=== PATIENT | female | born 1945 | race Caucasian/White ===

== ENCOUNTER → 2018-01-10 10:23 | Outpatient (CLI) | payer OTHER, SELFPAY ==
--- NOTE | 2018-01-10 10:25 | BI_ITS ---
MAMMOGRAPHY - BILATERAL SCREENING REASON FOR EXAM: Female, 72 years old. Routine annual screening examination. PERTINENT HISTORY: Non-contributory. TECHNIQUE: Digital bilateral breast jason (3D mammographic acquisition) in the CC and MLO projections. 2-D mediolateral oblique (MLO) and craniocaudad (CC) views of both breasts were obtained. CAD: Full Field Digital Mammography with Computer Added Detection was performed. COMPARISON: Comparison is made with prior study dated December 22, 2016 and December 22, 2015. FINDINGS: Breast Composition: There are scattered areas of fibroglandular density. There are no dominant masses or suspicious calcifications. Stable appearance of the secretory calcifications bilaterally. No other significant abnormalities are identified. There has been no significant change since the prior study. BI/SCREENING MAMM (CAD), BILAT IMPRESSION: Stable bilateral screening mammogram. Yearly follow-up mammogram recommended. (A) ASSESSMENT CATEGORY: BIRADS Category 2: Benign. A letter regarding these results will be sent to the patient by the facility within 30 days. Approximately 10% of breast cancers are not detected by mammography. A normal mammogram should not delay biopsy of a clinically suspicious abnormality. [id number] Electronically Signed: Yeison Archer MD at 7:56 EDT Tel [phone], Service support ,
[2018-01-10 12:15] LABS: Microalbumin,Random Urine 5.1 mg/L (NO RANGE EST.); Microalbumin:Creatinine Ratio 29.1 mg/g CRE (<30 mg/g CRE)
[2018-01-10 12:23] LABS: AST(SGOT) 24 U/L (15-37); Alanine Aminotransfer ALT/SGPT 30 U/L (13-56); Albumin, Serum 4.4 g/dL (3.2-5.0); Alkaline Phosphatase 50 U/L (45-117); Bilirubin, Direct 0.15 mg/dL (0.00-0.30); Cholesterol 142 mg/dL (200); Globulin 3.1 g/dL (2.2-4.2); High Density Lipoprotein 61 mg/dL; Protein, Total 7.5 g/dL (6.4-8.2); Triglycerides 52 mg/dL; Very Low Density Lipoprotein 10 mg/dL (5-40)
[2018-01-10 12:30] LABS: Hemoglobin A1c 5.2 % (4.2-6.3)
== END ==
PROVIDERS: Internal Medicine Cardiovascular Disease; Family Provider Preventive Medicine Occupational Medicine; PCP Preventive Medicine Occupational Medicine; Visit Provider Preventive Medicine Occupational Medicine
DX: E78.5 Hyperlipidemia, unspecified (principal); Z12.31 Encounter for screening mammogram for malignant neoplasm of breast
CPT/HCPCS: 36415; 77063; 77067; 80061; 80076; 82043; 82570; 83036

== ENCOUNTER → 2018-05-10 10:01 | Outpatient (CLI) | payer OTHER, SELFPAY ==
[2018-05-10 10:06] LABS: Mucous, Urine 0 SEEN /hpf (<or=2+)
[2018-05-10 10:20] LABS: Absolute Lymphocyte Count 0.98 X10^3/ul (0.83-4.51); Absolute Neutrophil Count 3.6 X10^3/uL (2.0-7.7); Basophil# 0.02 X10^3/uL; Basophil% 0.4 % (0-1); Hematocrit 38.2 % (37-47); Hemoglobin 12.9 g/dl (12.0-15.0); Lymphocyte # 0.98 X10^3/ul (4.0); Lymphocyte % 18.7 % (19-41); Mean Corp Hgb Conc 33.8 g/gl (32-36); Mean Corpuscular Hgb 28.4 pg (27.0-32.0); Mean Platelet Vol. 10.1 fl (6.2-12.0); Monocyte# 0.69 X10^3/uL; Monocyte% 13.2 % (0-10); Neutrophil # 3.55 X10^3/uL (2.7-7.7); Neutrophil % 67.7 % (47-70); Platelet Count 177 K/mm3 (150-450); RBC Distribution Width CV 14.4 % (11.6-14.6); RBC Distribution Width SD 44.5 fl (35.1-43.9); Red Blood Count 4.55 M/mm3 (4.2-5.4); White Blood Count 5.2 K/mm3 (4.4-11.0)
[2018-05-10 10:25] LABS: Color, Urine Yellow (Yellow); Glucose, Dipstick Normal (Normal); Ketone-Dipstick Negative (Negative); Leukocyte Esterase-Dipstick 500 /ul (Negative); Nitrite-Dipstick Negative (Negative); Occult Blood-Urine Negative /ul (Negative); POSITIVE COUNT NO; POSITIVE DIFFERENTIAL NO; POSITIVE MORPHOLOGY NO; Protein-Dipstick Negative (Negative); Specific Gravity, Urine 1.005 (1.002-1.030); Urine Bilirubin Dipstick Negative (Negative); Urine Clarity Clear (Clear); Urine Urobilinogen Normal (Normal)
[2018-05-10 10:33] LABS: Bacteria 2+ /hpf (None Seen); Red Blood Cells-Urine 0-5 SEEN /hpf (0-5); Squamous Epithelial Cells - UA 0-5 SEEN /hpf (5-10); White Blood Cells 5-10 SEEN /hpf (0-5)
[2018-05-10 10:58] LABS: Free T3 2.2 pg/mL (2.18-3.98); T4 Free Direct 0.83 ng/dL (0.76-1.46); Thyroid Stim Hormone (TSH) 3.17 uIU/mL (0.358-3.74)
== END ==
PROVIDERS: Family Provider Preventive Medicine Occupational Medicine; PCP Preventive Medicine Occupational Medicine; Referring Provider Nurse Practitioner; Visit Provider Nurse Practitioner
DX: R61 Generalized hyperhidrosis (principal)
CPT/HCPCS: 36415; 81001; 84439; 84443; 84481; 85025

== ENCOUNTER → 2018-07-15 10:26 | Outpatient (CLI) | payer OTHER, SELFPAY ==
[2018-07-15 11:29] LABS: AST(SGOT) 22 U/L (15-37); Alanine Aminotransfer ALT/SGPT 29 U/L (13-56); Albumin, Serum 4.3 g/dL (3.2-5.0); Alkaline Phosphatase 52 U/L (45-117); Bilirubin, Direct 0.16 mg/dL (0.00-0.30); Cholesterol 156 mg/dL (200); Globulin 3.1 g/dL (2.2-4.2); High Density Lipoprotein 58 mg/dL; Protein, Total 7.4 g/dL (6.4-8.2); Triglycerides 69 mg/dL; Very Low Density Lipoprotein 14 mg/dL (5-40)
== END ==
PROVIDERS: Family Provider Preventive Medicine Occupational Medicine; PCP Preventive Medicine Occupational Medicine; Referring Provider Internal Medicine Cardiovascular Disease; Visit Provider Internal Medicine Cardiovascular Disease
DX: E78.5 Hyperlipidemia, unspecified (principal)
CPT/HCPCS: 36415; 80061; 80076

== ENCOUNTER → 2019-01-13 | Outpatient (CLI) | payer OTHER, SELFPAY ==
[2018-08-02 13:14] VITALS: BMI 26.6
--- NOTE | 2019-01-13 09:59 | BI_ITS ---
MAMMOGRAPHY - BILATERAL SCREENING 3-D TOMOSYNTHESIS REASON FOR EXAM: Female, 73 years old. Bilateral Screening 3-D tomosynthesis PERTINENT HISTORY: Hormone use for 9 years. Intermittent left lateral breast pain. TECHNIQUE: 2-D mammograms and 3-D Tomosynthesis of the breast (s) were performed. CAD was performed. COMPARISON: January 10, 2018, December 22, 2016 FINDINGS: The breast composition is almost entirely fat. Scattered benign calcifications are seen. No dense spiculated masses or suspicious microcalcifications are identified. No architectural distortion is identified. There is no skin thickening or retraction. There are stable lymph nodes in both axillae. There has been no significant change since the prior study. BI/SCREEN MAMM (CAD) W/RAHEEM BILAT IMPRESSION: No mammographic signs of malignancy. Routine yearly mammograms recommended. ASSESSMENT CATEGORY: BIRADS Category 2: Benign. A letter regarding these results will be sent to the patient by the facility within 30 days. FOLLOW UP RECOMMENDATION: Yearly follow up mammogram recommended. (A) Approximately 10% of breast cancers are not detected by mammography. A normal mammogram should not delay biopsy of a clinically suspicious abnormality. Electronically Signed: Sergey Castillo MD at 14:24 EDT , Service support ,
== END | disposition home or self-care (01) ==
LOC: OPBI 09:57
PROVIDERS: Family Provider Preventive Medicine Occupational Medicine; PCP Preventive Medicine Occupational Medicine; Referring Provider Preventive Medicine Occupational Medicine; Visit Provider Preventive Medicine Occupational Medicine
DX: Z12.31 Encounter for screening mammogram for malignant neoplasm of breast (principal)
CPT/HCPCS: 77063; 77067

== ENCOUNTER → 2019-04-03 | Outpatient (CLI) | payer OTHER, SELFPAY ==
[2019-03-04 13:11] VITALS: BMI 25.6
[2019-04-03 12:46] LABS: AST(SGOT) 24 U/L (15-37); Alanine Aminotransfer ALT/SGPT 30 U/L (13-56); Albumin, Serum 4.2 g/dL (3.2-5.0); Alkaline Phosphatase 53 U/L (45-117); Bilirubin, Direct 0.17 mg/dL (0.00-0.30); Cholesterol 152 mg/dL (200); Globulin 3.2 g/dL (2.2-4.2); High Density Lipoprotein 59 mg/dL; Protein, Total 7.4 g/dL (6.4-8.2); Triglycerides 58 mg/dL; Very Low Density Lipoprotein 12 mg/dL (5-40)
== END | disposition home or self-care (01) ==
LOC: LAB 11:21
PROVIDERS: Family Provider Preventive Medicine Occupational Medicine; PCP Preventive Medicine Occupational Medicine; Referring Provider Physician Assistant Medical; Visit Provider Physician Assistant Medical
DX: E78.00 Pure hypercholesterolemia, unspecified (principal)
CPT/HCPCS: 36415; 80061; 80076

== ENCOUNTER → 2019-12-09 13:37 | Outpatient (CLI) | payer OTHER, SELFPAY ==
[2019-11-17 10:57] VITALS: BMI 24.8
--- NOTE | 2019-12-09 13:39 | ECHOD_ITS ---
Reason For Study: VALVE REPLACEMENT EVAL Procedure This was a 2D Doppler, Color Flow transthoracic echocardiogram. Exam performed in department. Left Ventricle Normal size and thickness. The estimated ejection fraction is 65 %. Stage 2 diastolic dysfunction. No regional wall motion abnormalities noted. Right Ventricle Normal size and thickness. Normal systolic function. Atria Normal left atrium. Normal right atrium. Normal atrial septum. Mitral Valve Mild diffuse mitral valve thickening. Mild (1+) mitral valve insufficiency. Tricuspid Valve Normal tricuspid valve. Mild (1+) tricuspid valve insufficiency. Right ventricular systolic pressure estimated to be 29 mmHg. Aortic Valve Trisinus/trileaflet aortic valve. Mild focal aortic valve thickening. There is no aortic stenosis. Trivial aortic valve insufficiency. Pulmonic Valve Normal pulmonic valve. Great Vessels Normal aortic root. Normal arch. Normal inferior vena cava. Inferior vena cava collapse with sniff. Pericardium/Pleural No pericardial effusion. MMode/2D Measurements & Calculations LVIDd: 4.6 cm IVSd: 0.98 cm Ao root diam: 2.9 cm LVIDs: 3.2 cm LVPWd: 0.96 cm RVDd: 3.5 cm FS: 30.4 % LAV(MOD-bp): 43.0 ml LA A4 area: 15.8 cm2 LA dimension(2D): 2.6 cm LAV(MOD-bp) Indexed: 26.4 ml/m2 LAV(MOD-sp2): 41.8 ml LAV(MOD-sp4): 42.3 ml RA A4 area: 12.8 cm2 Time Measurements MV dec time: 0.18 sec Doppler Measurements & Calculations MV E max sushil: 95.3 cm/sec Lat Peak E' Sushil: 4.5 cm/sec Med Peak E' Sushil: 6.8 cm/sec MV A max sushil: 82.9 cm/sec E/E' lat: 21.1 E/E' med: 13.9 MV E/A: 1.1 Ao V2 max: 117.7 cm/sec LV V1 max: 87.5 cm/sec PA V2 max: 72.1 cm/sec Ao max P.5 mmHg LV V1 max P.1 mmHg TR max sushil: 227.6 cm/sec TR max P.8 mmHg Interpretation Summary The estimated ejection fraction is 65 %. Stage 2 diastolic dysfunction. Mild (1+) mitral valve insufficiency. Mild (1+) tricuspid valve insufficiency. Right ventricular systolic pressure estimated to be 29 mmHg. Trivial aortic valve insufficiency. Compared to echo report dated 07/18/2017, no appreciable changes noted. Ordering Physician: Michael Cm Referring Physician: Jose Carrera Performed By: Bre Morgan, ROSANA, RVT
[2019-12-09 14:24] LABS: AST(SGOT) 20 U/L (15-37); Alanine Aminotransfer ALT/SGPT 24 U/L (13-56); Albumin, Serum 4.1 g/dL (3.2-5.0); Alkaline Phosphatase 64 U/L (45-117); Bilirubin, Direct 0.18 mg/dL (0.00-0.30); Cholesterol 142 mg/dL (200); Globulin 3.3 g/dL (2.2-4.2); High Density Lipoprotein 59 mg/dL; Protein, Total 7.4 g/dL (6.4-8.2); Triglycerides 61 mg/dL; Very Low Density Lipoprotein 12 mg/dL (5-40)
== END ==
PROVIDERS: PCP Preventive Medicine Occupational Medicine; Referring Provider Internal Medicine Cardiovascular Disease; Visit Provider Internal Medicine Cardiovascular Disease
DX: I10 Essential (primary) hypertension (principal); I34.0 Nonrheumatic mitral (valve) insufficiency; R06.09 Other forms of dyspnea; E78.5 Hyperlipidemia, unspecified
CPT/HCPCS: 36415; 80061; 80076; 93306

== ENCOUNTER → 2020-01-16 | Outpatient (CLI) | payer OTHER, SELFPAY ==
[2019-11-17 10:57] VITALS: BMI 24.8
--- NOTE | 2020-01-16 10:39 | BI_ITS ---
MAMMOGRAPHY - BILATERAL SCREENING 3-D TOMOSYNTHESIS REASON FOR EXAM: Female, 74 years old. Routine screening PERTINENT HISTORY: NO FM HX , BILAT MOLES/HEMANGIOMAS MARKED. TECHNIQUE: 2-D mammograms and 3-D Tomosynthesis of the breast (s) were performed. CAD was performed. COMPARISON: 01/13/2019 FINDINGS: The breast composition is composed of scattered fibroglandular density. Scattered benign calcifications are seen. No dense spiculated masses or suspicious microcalcifications are identified. No architectural distortion is identified. There is no skin thickening or retraction. There has been no significant change since the prior study. BI/SCREEN MAMM (CAD) W/RAHEEM BILAT IMPRESSION: No mammographic signs of malignancy. Routine yearly mammograms recommended. ASSESSMENT CATEGORY: BIRADS Category 1: Negative. A letter regarding these results will be sent to the patient by the facility within 30 days. FOLLOW UP RECOMMENDATION: Yearly follow up mammogram recommended. (A) Approximately 10% of breast cancers are not detected by mammography. A normal mammogram should not delay biopsy of a clinically suspicious abnormality. Electronically Signed: Benton Avendano MD at 11:33 EDT , Service support ,
== END | disposition home or self-care (01) ==
LOC: OPBI 10:32
PROVIDERS: PCP Preventive Medicine Occupational Medicine; Referring Provider Preventive Medicine Occupational Medicine; Visit Provider Preventive Medicine Occupational Medicine
DX: Z12.31 Encounter for screening mammogram for malignant neoplasm of breast (principal)
CPT/HCPCS: 77063; 77067

== ENCOUNTER 2020-09-23 10:28 | Outpatient (RCR) | payer MEDICARE, SELFPAY ==
[2020-05-14 14:01] VITALS: BMI 25.6
[2020-09-23] MEDS: COVID-19 VACC, MRNA(PFIZER)/PF 30 MCG/0.3 ML SYRINGE IM (08:40)
[2020-10-14] MEDS: COVID-19 VACC, MRNA(PFIZER)/PF 30 MCG/0.3 ML SYRINGE IM (08:27)
== END 2020-09-23 23:59 ==
LOC: IMMUN 10:28
PROVIDERS: PCP Preventive Medicine Occupational Medicine; Referring Provider Family Medicine; Visit Provider Family Medicine
DX: Z23 Encounter for immunization (principal)
CPT/HCPCS: 0001A; 0002A

== ENCOUNTER → 2020-11-09 11:46 | Outpatient (CLI) | payer MEDICARE, SELFPAY ==
[2020-05-14 14:01] VITALS: BMI 25.6
--- NOTE | 2020-11-09 11:55 | RAD_ITS ---
STUDY: X-RAY CHEST REASON FOR EXAM: Female, 75 years old. COUGH TECHNIQUE: PA and lateral views of the chest. COMPARISON: None. FINDINGS: The lungs are clear and expanded. There is no demonstrated pleural abnormality. Normal size heart. Normal mediastinum and franklyn. Normal visualized pulmonary arteries. Normal visualized aortic arch and descending thoracic aorta. Normal visualized thoracic spine. Normal visualized ribs, clavicles, and shoulders. There is no demonstrated abnormality of the visualized soft tissue structures of the upper abdomen. RAD/Chest PA and Lateral IMPRESSION: Normal x-ray examination of the chest. Electronically Signed: Rachael Warren MD at 4:57 EDT Tel , Service support ,
== END ==
PROVIDERS: PCP Preventive Medicine Occupational Medicine; Referring Provider Preventive Medicine Occupational Medicine; Visit Provider Preventive Medicine Occupational Medicine
DX: R05 Cough (principal)
CPT/HCPCS: 71046

== ENCOUNTER → 2021-01-17 10:18 | Outpatient (CLI) | payer MEDICARE, SELFPAY ==
[2020-05-14 14:01] VITALS: BMI 25.6
--- NOTE | 2021-01-17 10:20 | BI_ITS ---
MAMMOGRAPHY - BILATERAL SCREENING REASON FOR EXAM: Female, 75 years old. Routine annual screening examination. PERTINENT HISTORY: Non-contributory. TECHNIQUE: Digital bilateral breast raheem (3D mammographic acquisition) in the CC and MLO projections. 2-D mediolateral oblique (MLO) and craniocaudad (CC) views of both breasts were obtained. CAD: Full Field Digital Mammography with Computer Added Detection was performed. COMPARISON: Comparison is made with prior study dated 01/16/2020 and 01/13/2019. FINDINGS: Breast Composition: There are scattered areas of fibroglandular density. There are no dominant masses or suspicious calcifications. Stable benign-appearing bilateral axillary lymph nodes. No other significant abnormalities are identified. There has been no significant change since the prior study. BI/SCRN MAMM (CAD)W/RAHEEM BILAT IMPRESSION: Stable bilateral screening mammogram. Yearly follow-up mammogram recommended. (A) ASSESSMENT CATEGORY: BIRADS Category 2: Benign. A letter regarding these results will be sent to the patient by the facility within 30 days. Approximately 10% of breast cancers are not detected by mammography. A normal mammogram should not delay biopsy of a clinically suspicious abnormality. [id number] Electronically Signed: Yeison Archer MD at 12:30 EDT , Service support ,
== END ==
PROVIDERS: PCP Preventive Medicine Occupational Medicine; Referring Provider Preventive Medicine Occupational Medicine; Visit Provider Preventive Medicine Occupational Medicine
DX: Z12.31 Encounter for screening mammogram for malignant neoplasm of breast (principal)
CPT/HCPCS: 77063; 77067

== ENCOUNTER → 2022-01-18 | Outpatient (CLI) | payer MEDICARE, SELFPAY ==
--- NOTE | 2022-01-18 09:54 | BI_ITS ---
MAMMOGRAPHY - BILATERAL SCREENING REASON FOR EXAM: Female, 76 years old. Routine annual screening examination. PERTINENT HISTORY: Non-contributory. TECHNIQUE: Digital bilateral breast raheem (3D mammographic acquisition) in the CC and MLO projections. 2-D mediolateral oblique (MLO) and craniocaudad (CC) views of both breasts were obtained. CAD: Full Field Digital Mammography with Computer Added Detection was performed. COMPARISON: Comparison is made with prior study dated 01/17/2021 and 01/16/2020. FINDINGS: Breast Composition: There are scattered areas of fibroglandular density. There are no dominant masses or suspicious calcifications. No other significant abnormalities are identified. There has been no significant change since the prior study. BI/SCRN MAMM (CAD)W/RAHEEM BILAT IMPRESSION: Stable bilateral screening mammogram. Yearly follow-up mammogram recommended. (A) ASSESSMENT CATEGORY: BIRADS Category 1: Negative. A letter regarding these results will be sent to the patient by the facility within 30 days. Approximately 10% of breast cancers are not detected by mammography. A normal mammogram should not delay biopsy of a clinically suspicious abnormality. [id number] Electronically Signed: Yeison Archer MD at 10:43 EDT ,
[2022-01-18 11:02] LABS: Creatinine, Urine (random) < 13.00 mg/dL (NO RANGE EST.); Microalbumin,Random Urine 14.3 mg/L (NO RANGE EST.)
[2022-01-18 11:18] LABS: ALB/GLOB Ratio 1.3 RATIO (0.9-2.4); AST(SGOT) 24 U/L (15-37); Alanine Aminotransfer ALT/SGPT 26 U/L (13-56); Albumin, Serum 4.4 g/dL (3.2-5.0); Alkaline Phosphatase 56 U/L (45-117); Anion Gap 6 (5-15); BUN 10 mg/dL (7-18); BUN/Creat Ratio 11.1 RATIO (10-20); Calcium,Total 9.3 mg/dL (8.5-10.1); Chloride 90 mmol/L (98-107); Cholesterol 162 mg/dL (200); EST Glomerular Filtration Rate 65 mL/min (>60); Est Glom Filt Rate - Afr Amer 78 mL/min (>60); Globulin 3.3 g/dL (2.2-4.2); Glucose 105 mg/dL (74-106); High Density Lipoprotein 64 mg/dL; Potassium 4.1 mmol/L (3.5-5.1); Protein, Total 7.7 g/dL (6.4-8.2); Sodium Level 127 mmol/L (136-145); Triglycerides 59 mg/dL; Very Low Density Lipoprotein 12 mg/dL (5-40)
== END | disposition home or self-care (01) ==
LOC: OPBI 09:52 → PAVLAB 10:17
PROVIDERS: PCP Preventive Medicine Occupational Medicine; Visit Provider Preventive Medicine Occupational Medicine
DX: Z12.31 Encounter for screening mammogram for malignant neoplasm of breast (principal); E11.9 Type 2 diabetes mellitus without complications; E78.00 Pure hypercholesterolemia, unspecified; I10 Essential (primary) hypertension
CPT/HCPCS: 36415; 77063; 77067; 80053; 80061; 82043; 82570

== ENCOUNTER → 2022-07-13 | Outpatient (CLI) | payer MEDICARE, SELFPAY ==
[2022-07-13 13:59] LABS: AST(SGOT) 24 U/L (15-37); Alanine Aminotransfer ALT/SGPT 30 U/L (13-56); Albumin, Serum 4.1 g/dL (3.2-5.0); Alkaline Phosphatase 67 U/L (45-117); Anion Gap 6 (5-15); BUN 10 mg/dL (7-18); BUN/Creat Ratio 10.9 RATIO (10-20); Calcium,Total 9.1 mg/dL (8.5-10.1); Chloride 92 mmol/L (98-107); Cholesterol 154 mg/dL (200); Creatinine, Serum 0.92 mg/dL (0.55-1.02); EST Glomerular Filtration Rate 63 mL/min (>60); Est Glom Filt Rate - Afr Amer 76 mL/min (>60); Globulin 3.3 g/dL (2.2-4.2); Glucose 106 mg/dL (74-106); High Density Lipoprotein 63 mg/dL; Protein, Total 7.4 g/dL (6.4-8.2); Sodium Level 127 mmol/L (136-145); Triglycerides 54 mg/dL; Very Low Density Lipoprotein 11 mg/dL (5-40)
== END | disposition home or self-care (01) ==
LOC: LAB 13:04
PROVIDERS: PCP Preventive Medicine Occupational Medicine; Referring Provider Internal Medicine Cardiovascular Disease; Visit Provider Internal Medicine Cardiovascular Disease
DX: I10 Essential (primary) hypertension (principal); E78.5 Hyperlipidemia, unspecified; I34.0 Nonrheumatic mitral (valve) insufficiency
CPT/HCPCS: 36415; 80048; 80061; 80076

== ENCOUNTER → 2023-01-19 | Outpatient (CLI) | payer MEDICARE, SELFPAY ==
--- NOTE | 2023-01-19 10:14 | BI_ITS ---
MAMMOGRAPHY - BILATERAL SCREENING REASON FOR EXAM: Female, 77 years old. Routine annual screening examination. PERTINENT HISTORY: Non-contributory. Occasional lateral left breast pain TECHNIQUE: Digital bilateral breast raheem (3D mammographic acquisition) in the CC and MLO projections. 2-D mediolateral oblique (MLO) and craniocaudad (CC) views of both breasts were obtained. CAD: Full Field Digital Mammography with Computer Added Detection was performed. COMPARISON: Comparison is made with prior study dated January 18, 2022 and January 17, 2021. FINDINGS: Breast Composition: There are scattered areas of fibroglandular density. There are no dominant masses or suspicious calcifications. No other significant abnormalities are identified. There has been no significant change since the prior study. BI/SCRN MAMM (CAD)W/RAHEEM BILAT IMPRESSION: Stable bilateral screening mammogram. Yearly follow-up mammogram recommended. (A) ASSESSMENT CATEGORY: BIRADS Category 1: Negative. A letter regarding these results will be sent to the patient by the facility within 30 days. Approximately 10% of breast cancers are not detected by mammography. A normal mammogram should not delay biopsy of a clinically suspicious abnormality. [id number] Electronically Signed: Yeison Archer MD at 12:42 EDT ,
== END | disposition home or self-care (01) ==
PROVIDERS: PCP Preventive Medicine Occupational Medicine; Referring Provider Preventive Medicine Occupational Medicine; Visit Provider Preventive Medicine Occupational Medicine
DX: Z12.31 Encounter for screening mammogram for malignant neoplasm of breast (principal)
CPT/HCPCS: 77063; 77067

== ENCOUNTER → 2023-06-05 | Outpatient (CLI) | payer MEDICARE, SELFPAY ==
[2023-06-05 11:40] LABS: AST(SGOT) 22 U/L (15-37); Alanine Aminotransfer ALT/SGPT 29 U/L (13-56); Albumin, Serum 3.9 g/dL (3.2-5.0); Alkaline Phosphatase 54 U/L (45-117); Bilirubin, Direct 0.18 mg/dL (0.00-0.30); Cholesterol 136 mg/dL (200); Globulin 3.2 g/dL (2.2-4.2); High Density Lipoprotein 60 mg/dL; Protein, Total 7.1 g/dL (6.4-8.2); T4 Free Direct 0.97 ng/dL (0.76-1.46); Thyroid Stim Hormone (TSH) 3.33 uIU/mL (0.358-3.74); Triglycerides 61 mg/dL; Very Low Density Lipoprotein 12 mg/dL (5-40)
== END | disposition home or self-care (01) ==
LOC: LAB 10:36
PROVIDERS: PCP Preventive Medicine Occupational Medicine; Referring Provider Nurse Practitioner Gerontology; Visit Provider Nurse Practitioner Gerontology
DX: E78.00 Pure hypercholesterolemia, unspecified (principal); I10 Essential (primary) hypertension
CPT/HCPCS: 36415; 80061; 80076; 84439; 84443; 84481

== ENCOUNTER → 2023-07-02 | Outpatient (CLI) | payer MEDICARE, SELFPAY ==
--- NOTE | 2023-07-02 09:03 | ECHOD_ITS ---
Reason For Study: HTN Procedure This was a 2D Doppler, Color Flow transthoracic echocardiogram. Exam performed in department. Left Ventricle Normal LV size. Left ventricular systolic function is normal. The estimated ejection fraction is 60 %. No regional wall motion abnormalities noted. Right Ventricle Normal RV size. Normal systolic function. Atria Normal left atrium. Normal right atrium. Mitral Valve Normal mitral valve. Mild (1+) eccentric mitral valve insufficiency. Tricuspid Valve Normal tricuspid valve. Mild tricuspid valve insufficiency. Pulmonary artery systolic pressure is 25 mmHg. Aortic Valve Trisinus/trileaflet aortic valve. Mild focal aortic valve calcification. Pulmonic Valve Normal pulmonic valve. Great Vessels Normal aortic root. The pulmonary artery is normal size. Normal inferior vena cava. Pericardium/Pleural No pericardial effusion. MMode/2D Measurements & Calculations LVIDd: 4.4 cm IVSd: 0.85 cm Ao root diam: 3.0 cm LVIDs: 2.7 cm LVPWd: 0.84 cm LA dimension: 3.0 cm RVDd: 3.8 cm FS: 37.9 % LAV(MOD-bp): 33.4 ml LA A4 area: 14.1 cm2 RA A4 area: 12.9 cm2 LAV(MOD-bp) Indexed: 20.9 ml/m2 LAV(MOD-sp2): 29.4 ml LAV(MOD-sp4): 31.4 ml TAPSE: 2.3 cm Time Measurements MV dec time: 0.19 sec Doppler Measurements & Calculations MV E max sushil: 75.8 cm/sec Lat Peak E' Sushil: 7.2 cm/sec Med Peak E' Sushil: 7.5 cm/sec MV A max sushil: 83.0 cm/sec E/E' lat: 10.6 E/E' med: 10.1 MV E/A: 0.91 MV V2 max: 91.8 cm/sec MV P1/2t max sushil: 93.9 cm/sec Ao V2 max: 120.4 cm/sec MV max P.4 mmHg MV P1/2t: 68.6 msec Ao max P.8 mmHg MV V2 mean: 47.5 cm/sec Ao V2 mean: 77.4 cm/sec MV mean P.1 mmHg MV dec slope: 400.5 cm/sec2 Ao mean P.9 mmHg MV V2 VTI: 31.9 cm MVA(P1/2t): 3.2 cm2 Ao V2 VTI: 31.4 cm AV (velocity ratio): 0.76 LV V1 max: 85.6 cm/sec MR max sushil: 498.1 cm/sec PA V2 max: 76.0 cm/sec LV V1 max P.9 mmHg MR max P.3 mmHg LV V1 mean P.5 mmHg MR mean sushil: 396.8 cm/sec LV V1 mean: 55.1 cm/sec MR mean P.3 mmHg LV V1 VTI: 24.0 cm MR VTI: 220.4 cm TR max sushil: 231.3 cm/sec TR max P.4 mmHg ECHO/Echo Complete Interpretation Summary Normal LV size. Left ventricular systolic function is normal. The estimated ejection fraction is 60 %. Pulmonary artery systolic pressure is 25 mmHg. Ordering Physician: Mari Robert Referring Physician: Mari Robert Performed By: yK Craig RCS
--- NOTE | 2023-07-02 09:03 | ART_ITS ---
Reason For Study: PVD /Cold BLE Procedure A bilateral lower extremity continuous wave Doppler with analog waveform analysis and ankle brachial indexes. Left Segmental Pressures Left brachial= 144mmHg. Left posterior tibial artery = 148mmHg. Left dorsalis pedis artery = 144mmHg. Left digit = 121 mmHg. The left posterior tibial artery waveforms are triphasic. The left dorsalis pedis waveforms are triphasic. Right Segmental Pressures Right brachial= 137mmHg. Right posterior tibial artery = 153mmHg. Right dorsalis pedis artery = 133mmHg. Right digit = 125 mmHg. The right posterior tibial artery waveforms are triphasic. The right dorsalis pedis waveforms are triphasic. Indices The right ankle brachial index by the posterior tibial artery is 1.06. The right ankle brachial index by the dorsalis pedis is 0.92. The right digital-brachial index is 0.87. The left ankle brachial index by the posterior tibial artery is 1.03. The left ankle brachial index by the dorsalis pedis is 1.00. The left digital-brachial index is 0.84. VL/Ankle Brachial Index Interpretation Summary Right TYSHAWN 1.06, normal. TBI and Doppler/PVR waveforms of the right leg normal a t rest. Left TYSHAWN 1.03, normal. TBI and Doppler/PVR waveforms of the left leg normal at rest. Ordering Physician: Mari Robert Referring Physician: Jose Carrera Performed By: Martínez Troy RVShirley
== END | disposition home or self-care (01) ==
LOC: CVS 09:01
PROVIDERS: PCP Preventive Medicine Occupational Medicine; Referring Provider Nurse Practitioner Gerontology; Visit Provider Nurse Practitioner Gerontology
DX: I73.9 Peripheral vascular disease, unspecified (principal); R20.9 Unspecified disturbances of skin sensation; I34.0 Nonrheumatic mitral (valve) insufficiency
CPT/HCPCS: 93306; 93922

== ENCOUNTER → 2023-11-22 | Outpatient (CLI) | payer MEDICARE, SELFPAY ==
[2023-11-22 12:09] LABS: ALB/GLOB Ratio 1.3 RATIO (0.9-2.4); AST(SGOT) 27 U/L (15-37); Alanine Aminotransfer ALT/SGPT 28 U/L (13-56); Alkaline Phosphatase 52 U/L (45-117); Anion Gap 3 (5-15); BUN 11 mg/dL (7-18); BUN/Creat Ratio 12.9 RATIO (10-20); Calcium,Total 9.2 mg/dL (8.5-10.1); Chloride 97 mmol/L (98-107); Cholesterol 149 mg/dL (200); Creatinine, Serum 0.85 mg/dL (0.55-1.02); EST Glomerular Filtration Rate 68 mL/min (>60); Est Glom Filt Rate - Afr Amer 83 mL/min (>60); Globulin 3.1 g/dL (2.2-4.2); Glucose 101 mg/dL (74-106); High Density Lipoprotein 66 mg/dL; Microalbumin:Creatinine Ratio 69.8 mg/g CRE (<30 mg/g CRE); Potassium 4.9 mmol/L (3.5-5.1); Protein, Total 7.1 g/dL (6.4-8.2); Sodium Level 129 mmol/L (136-145); Triglycerides 55 mg/dL; Very Low Density Lipoprotein 11 mg/dL (5-40)
== END | disposition home or self-care (01) ==
LOC: LAB 11:07
PROVIDERS: Nurse Practitioner Gerontology; PCP Preventive Medicine Occupational Medicine; Referring Provider Preventive Medicine Occupational Medicine; Visit Provider Preventive Medicine Occupational Medicine
DX: E78.00 Pure hypercholesterolemia, unspecified (principal); E11.9 Type 2 diabetes mellitus without complications; I10 Essential (primary) hypertension
CPT/HCPCS: 36415; 80053; 80061; 82043; 82248; 82570

== ENCOUNTER → 2024-01-21 | Outpatient (CLI) | payer MEDICARE, SELFPAY ==
--- NOTE | 2024-01-21 09:57 | BI_ITS ---
MAMMOGRAPHY - BILATERAL SCREENING 3-D TOMOSYNTHESIS REASON FOR EXAM: Female, 78 years old. SCREENING PERTINENT HISTORY: No significant family history. TECHNIQUE: 2-D mammograms and 3-D Tomosynthesis of the breast (s) were performed. CAD was performed. COMPARISON: 01/19/2023 FINDINGS: The breast composition is composed of scattered fibroglandular density. Scattered benign calcifications are seen. No dense spiculated masses or suspicious microcalcifications are identified. No architectural distortion is identified. There is no skin thickening or retraction. There has been no significant change since the prior study. Bilateral benign vascular calcifications can be associated with coronary artery disease. BI/SCRN MAMM (CAD)W/RAHEEM BILAT IMPRESSION: No mammographic signs of malignancy. Routine yearly mammograms recommended. ASSESSMENT CATEGORY: BIRADS Category 2: Benign. A letter regarding these results will be sent to the patient by the facility within 30 days. FOLLOW UP RECOMMENDATION: Yearly follow up mammogram recommended. (A) Approximately 10% of breast cancers are not detected by mammography. A normal mammogram should not delay biopsy of a clinically suspicious abnormality. Electronically Signed: Nico Ibrahim MD at 10:52 EDT ,
== END | disposition home or self-care (01) ==
LOC: OPBI 09:55
PROVIDERS: PCP Preventive Medicine Occupational Medicine; Referring Provider Preventive Medicine Occupational Medicine; Visit Provider Preventive Medicine Occupational Medicine
DX: Z12.31 Encounter for screening mammogram for malignant neoplasm of breast (principal)
CPT/HCPCS: 77063; 77067

== ENCOUNTER → 2024-04-30 | Outpatient (CLI) | payer MEDICARE, SELFPAY ==
--- NOTE | 2024-04-30 14:24 | NEURO ---
NCS and/or EMG Patient Report Ordering Doctor: Chung Oliva DATE OF SERVICE: 04/30/24 Ivet has complaints of intermittent numbness and burning in the feet. Electrodiagnostic findings: Right peroneal motor nerve demonstrates normal distal latency, amplitude and conduction velocity. Left peroneal motor response is within normal limits. Normal tibial motor response bilaterally. Normal tibial and peroneal F?waves. H?reflexes are normal bilaterally. Sensory responses, including plantar responses, are within normal limits. Needle EMG testing was performed the lower limbs. All muscles tested showed no evidence of denervation with normal motor unit action potentials. Electrodiagnostic impression: This is a normal electrodiagnostic study of the lower limbs. There is no electrodiagnostic evidence for lumbosacral radiculopathy, myopathy, or peripheral neuropathy.
== END | disposition home or self-care (01) ==
LOC: PSN 12:25
PROVIDERS: PCP Preventive Medicine Occupational Medicine; Referring Provider Podiatrist; Visit Provider Podiatrist
DX: E11.42 Type 2 diabetes mellitus with diabetic polyneuropathy (principal)
CPT/HCPCS: 95886; 95913

== ENCOUNTER → 2024-05-27 | Outpatient (CLI) | payer MEDICARE, SELFPAY ==
--- NOTE | 2024-05-27 11:02 | BD_ITS ---
STUDY: DUAL ENERGY X-RAY ABSORPTIOMETRY / DXA REASON FOR EXAM: Female, 79 years old. [id number] TECHNIQUE: Bone Mineral Density (BMD) measurements of lumbar spine and bilateral hips were obtained. COMPARISON: Comparison is made with prior study dated December 08, 2010. FINDINGS: Lumbar Spine (L1-L4): g/cm2 (1.066) / T-score (0.2) / Z-score (2.8) Findings are suggestive of normal bone density with a low fracture risk. Left Femur Total: g/cm2 (0.952) / T-score (0.1) / Z-score (2.1) Left Femoral Neck: g/cm2 (0.817) / T-score (-0.3) / Z-score (2.0) Right Femur Total: g/cm2 (0.959) / T-score (0.1) / Z-score (2.2) Right Femoral Neck: g/cm2 (0.763) / T-score (-0.8) / Z-score (1.5) The T-Scores on the most recent prior examination were: Lumbar Spine (L1-L4): There has been worsening of bone density since the previous examination. Left Femur Total: which represents a worsening of 15%. Right Femur Total: which represents a worsening of 15.8%. BD/Dexa Bone Density Study IMPRESSION: The patient is considered normal as outlined below according to World Rajiv Organization (WHO) criteria with a low fracture risk. There has been worsening of bone density since the previous examination. Reference Information: The T-score is the number of standard deviations above or below the standard which is normal for young adults at their peak bone mineral density. The World Health Organization (WHO) interprets the T-scores as follows: Above -1 Normal bone density Between -1 and -2.5 Osteopenia Equal to / or below -2.5 Osteoporosis As a practical clinical guideline, osteopenia may be graded as follows: Mild -1 through -1.5 Moderate -1.6 through -2.0 Severe -2.1 through -2.4 The Z-score is the number of standard deviations above or below age-matched controls. A Z-score of less than -1.5 would be considered abnormal. References: 1. NIH Osteoporosis and Related Bone Diseases www osteo.org 2. International Society for Clinical Densitometry www iscd.org 3. National Osteoporosis Foundation www nof.org Electronically Signed: Yeison Archer MD at 14:18 EST ,
[2024-05-27 12:37] LABS: ALB/GLOB Ratio 1.4 RATIO (0.9-2.4); AST(SGOT) 21 U/L (15-37); Alanine Aminotransfer ALT/SGPT 18 U/L (13-56); Albumin, Serum 4.2 g/dL (3.2-5.0); Alkaline Phosphatase 56 U/L (45-117); Anion Gap 9 (5-15); BUN 9 mg/dL (7-18); Bilirubin, Direct 0.23 mg/dL (0.00-0.30); Chloride 94 mmol/L (98-107); Cholesterol 137 mg/dL (200); EST Glomerular Filtration Rate 64 mL/min (>60); Est Glom Filt Rate - Afr Amer 78 mL/min (>60); Globulin 3.1 g/dL (2.2-4.2); Glucose 93 mg/dL (74-106); High Density Lipoprotein 70 mg/dL; Potassium 4.1 mmol/L (3.5-5.1); Protein, Total 7.3 g/dL (6.4-8.2); Sodium Level 128 mmol/L (136-145); Triglycerides 51 mg/dL; Very Low Density Lipoprotein 10 mg/dL (5-40)
[2024-05-27 12:48] LABS: Microalbumin,Random Urine 31.6 mg/L (NO RANGE EST.); Microalbumin:Creatinine Ratio 184.8 mg/g CRE (<30 mg/g CRE)
== END | disposition home or self-care (01) ==
PROVIDERS: Nurse Practitioner Gerontology; PCP Preventive Medicine Occupational Medicine; Referring Provider Preventive Medicine Occupational Medicine; Visit Provider Preventive Medicine Occupational Medicine
DX: E78.00 Pure hypercholesterolemia, unspecified (principal); E11.9 Type 2 diabetes mellitus without complications; I10 Essential (primary) hypertension; Z78.0 Asymptomatic menopausal state
CPT/HCPCS: 36415; 77080; 80053; 80061; 82043; 82248; 82570

== ENCOUNTER → 2024-07-01 | Outpatient (CLI) | payer MEDICARE, SELFPAY ==
[2024-07-01 12:24] LABS: Erythrocyte Sedimentation Rate 3 mm/hr (0-30)
[2024-07-01 13:00] LABS: Vitamin B12 877 pg/mL (211-911)
[2024-07-01 13:49] LABS: CRP < 2.90 mg/L (0.0-3.0); Magnesium 2.3 mg/dL (1.6-2.6)
[2024-07-02 12:08] LABS: ANTINUCLEAR ANTIBODIES DIRECT Negative (Negative)
[2024-07-07 09:22] LABS: Albumin 3.9 g/dL (2.9-4.4); Alpha-1-Globulins 0.3 g/dL (0.0-0.4); Alpha-2-Globulins 0.9 g/dL (0.4-1.0); Immunoglobulin A 144 mg/dL (64-422); Immunoglobulin G 923 mg/dL (586-1602); Immunoglobulin M 83 mg/dL (26-217); Vitamin B1, Thiamine 113.9 nmol/L (66.5-200.0)
== END | disposition home or self-care (01) ==
LOC: MTLAB 11:06
PROVIDERS: PCP Preventive Medicine Occupational Medicine
DX: G62.9 Polyneuropathy, unspecified (principal)
CPT/HCPCS: 36415; 82607; 82746; 82784; 83735; 84165; 84425; 85652; 86038; 86140; 86225; 86235; 86334

== ENCOUNTER → 2024-10-22 | Outpatient (CLI) | payer OTHER, SELFPAY ==
[2024-10-22 11:05] LABS: ALB/GLOB Ratio 1.7 RATIO (0.9-2.4); AST(SGOT) 29 U/L (<=31); Alanine Aminotransfer ALT/SGPT 18 U/L (<=34); Albumin, Serum 4.6 g/dL (3.4-4.8); Alkaline Phosphatase 55 U/L (35-104); Anion Gap 12 (5-15); BUN 12 mg/dL (4-19); BUN/Creat Ratio 12.9 RATIO (10-20); Calcium,Total 9.5 mg/dL (7.6-11.0); Carbon Dioxide 23.3 mmol/L (21.0-32.0); Chloride 93 mmol/L (98-108); Cholesterol 156 mg/dL (<=200); Creatinine, Serum 0.95 mg/dL (0.70-1.20); EST Glomerular Filtration Rate 61 (>60); Globulin 2.7 g/dL (2.2-4.2); Glucose 96 mg/dL (70-99); High Density Lipoprotein 67 mg/dL; Low Density Lipoprotein Calc. 76 mg/dL; Potassium 4.3 mmol/L (3.3-5.1); Protein, Total 7.2 g/dL (5.9-8.4); Sodium Level 129 mmol/L (133-145); Total Bilirubin 0.45 mg/dL (0.00-1.30); Triglycerides 70 mg/dL; Very Low Density Lipoprotein 14 mg/dL (5-40); cholesterol:hdl ratio screen 2.35
[2024-10-22 15:20] LABS: Microalbumin,Random Urine 14.1 mg/L (NO RANGE EST.); Microalbumin:Creatinine Ratio 305.9 mg/g CRE
== END | disposition home or self-care (01) ==
PROVIDERS: PCP Preventive Medicine Occupational Medicine; Referring Provider Preventive Medicine Occupational Medicine; Visit Provider Preventive Medicine Occupational Medicine
DX: I10 Essential (primary) hypertension (principal); E11.9 Type 2 diabetes mellitus without complications; E78.00 Pure hypercholesterolemia, unspecified
CPT/HCPCS: 36415; 80053; 80061; 82043; 82570

== ENCOUNTER → 2025-06-08 | Outpatient (CLI) | payer MEDICARE, SELFPAY ==
[2025-06-11 04:22] LABS: Calprotectin, Stool 37 ug/g (0-120)
== END | disposition home or self-care (01) ==
LOC: LABSPEC 09:24
PROVIDERS: Referring Provider Student in an Organized Health Care Education/Training Program; Visit Provider Student in an Organized Health Care Education/Training Program
DX: K58.9 Irritable bowel syndrome, unspecified (principal); R10.9 Unspecified abdominal pain
CPT/HCPCS: 83993; 87177; 87209; 87329; 87493

== ENCOUNTER → 2025-06-16 | Outpatient (CLI) | payer MEDICARE, SELFPAY ==
--- OUTSIDE RECORDS SUMMARY | 2025-06-16 09:38 | XMS RPT_ITS | CCD ---
Author Organization [facility] CliniSywy Care Team Providers Care Head Tennis Professional Name Role Phone Erendira JOHNSON, Jeannie Spicer Unavailable Unavailable CARIDAD CARRERA DO Primary Care Physician [phone] CARIDAD CARRERA DO Primary Care Physician [phone] Dr. Caridad Carrera Primary Care Provider Dr. Caridad Carrera Referring Provider [phone] Jakob CREDIT COLLECTIONS REP, CREDIT COLLECTIONS REP-C Mari Attending Provider CARIDAD CARRERA DO Attending Unavailable CARIDAD CARRERA DO Primary Care Unavailable CARIDAD CARRERA DO Attending Unavailable CARIDAD CARRERA DO Primary Care Unavailable Dr. Emeka Nichols Attending Provider [phone] Dr. Ozzie Malave Attending Provider [phone] Caridad Carrera DO Primary Care Provider [phone] Dr. Maikol Jones MD Attending Provider Dr. Chung Oliva DPM Referring Provider Tara Gay Attending Provider Tara Gay Referring Provider Dr. Caridad Carrera DO Referring Provider Dr. Ozzie Malave MD Attending Provider [phone] Dr. Caridad Carrera DO Attending Provider DEREK GUERRIER DO Primary Care Physician Dr. Caridad Carrera DO Primary Care Physician Dr. Caridad Carrera DO Referring Provider Tara Gay Attending Physician GUERRIER DO, DEREK E Primary Care Unavailable GUERRIER DO, DEREK E Attending Unavailable NANCY MOORE MD Attending Unavailable TETO DO, CARIDAD Primary Care Unavailable GUERRIER DO, DEREK E Attending Unavailable GUERRIER DO, DEREK E Primary Care Unavailable GUERRIER DO, DEREK E Attending Unavailable GUERRIER DO, DEREK E Primary Care Unavailable DARREN ESPARZA, DELMER Admitting Unavailable DARREN ESPARZA, DELMER Attending Unavailable GUERRIER DO, DEREK E Primary Care Unavailable SEBASTIAN GONZALEZ MD Attending Unavailable GUERRIER DO, DEREK E Primary Care Unavailable GUERRIER DO, DEREK E Attending Unavailable GUERRIER DO, DEREK E Primary Care Unavailable GUERRIER DO, DEREK E Primary Care Unavailable GUERRIER DO, DEREK E Attending Unavailable Caridad Carrera Primary Care Unavailable Caridad Carrera Attending Unavailable Teto, Caridad Referring Unavailable Teto, Caridad Referring Unavailable Teto, Caridad Primary Care Unavailable Tara Whiteside Attending Unavailable Ozzie Malave Attending Unavailable TetoCaridad richards Referring Unavailable Teto, Caridad Primary Care Unavailable Teto, Caridad Primary Care Unavailable Chung Oliva Referring Unavailable Maikol Jones Attending Unavailable Teto, Caridad Referring Unavailable Teto, Caridad Primary Care Unavailable Tara Whiteside Attending Unavailable Tara Whiteside Attending Unavailable Teto, Caridad Referring Unavailable Teto, Caridad Primary Care Unavailable Caridad Carrera Attending Unavailable Teto Caridad Referring Unavailable Teto, Caridad Primary Care Unavailable Tara Whiteside Attending Unavailable Tara Whiteside Referring Unavailable TetoCaridad richards Primary Care Unavailable Allergies Allergy Classification Reported Allergen(s) Allergy Type Date of Onset Reaction(s) Facility Acetaminophen / HYDROcodone (1 source) Acetaminophen / HYDROcodone; Translations: [acetaminophen-hy drocodone] Drug Allergy Nausea [facility] Acetaminophen / oxyCODONE (1 source) Acetaminophen / oxyCODONE; Translations: [acetaminophen-ox ycodone] Drug Allergy Nausea [facility] Angiotensin Converting Enzyme (NEAL) Inhibitors (1 source) Lisinopril; Translations: [lisinopril] Drug Allergy 2 Cough (finding) [facility] Opioid Agonists (1 source) Codeine; Translations: [codeine] Drug Allergy Nausea [facility] (16 sources) Codeine; Translations: [codeine] Drug Allergy 1 Nausea [facility] (6 sources) HYDROcodone Drug Allergy 1 Nausea [facility] (1 source) irbesartan Drug Allergy 1 Nausea [facility] Work Phone: (6 sources) oxyCODONE Drug Allergy 1 NAUSEA [facility] (7 sources) NSAIDS (Non-Steroidal Anti-Inflamma; Translations: [NSAIDS (Non-Steroidal Anti-Inflamma] Propensity to adverse reactions 1 [facility] (10 sources) Acetaminophen / HYDROcodone; Translations: [acetaminophen-hy drocodone] Drug Allergy [facility] (10 sources) Acetaminophen / oxyCODONE; Translations: [acetaminophen-ox ycodone] Drug Allergy [facility] (14 sources) Lisinopril; Translations: [lisinopril] Drug Allergy 2 Cough (finding) [facility] (5 sources) irbesartan Drug Allergy 3 Nausea [facility] (1 source) Codeine Drug Allergy 5 [facility] (1 source) HYDROcodone Drug Allergy 5 [facility] (1 source) irbesartan Drug Allergy 5 [facility] (1 source) Lisinopril Drug Allergy 5 [facility] (1 source) oxyCODONE Drug Allergy 5 [facility] Medications Current Medications Medication Drug Class(es) Dates Sig (Normalized) Sig (Original) acetaminophen 325 mg oral capsule (2 sources) Start: 01-22-2025 take 1 capsule by mouth every six hours acetaminophen 325 mg oral capsule Dose : 650 mg =, Oral, q6hr, # 30 cap(s), 0 Refill(s), Pharmacy: [id number], 131, cm, 01/22/25 15:10:00 EDT, Height, kg, 01/22/25 15:10:00 EDT, Dosing Weight Start Date: 01/22/25 Status: Ordered Quantity: 30.0 Unit: cap(s) Repeat number: 1 dicyclomine hydrochloride 20 mg oral tablet (1 source) Anticholinergic Start: 04-21-2025 dicyclomine 20 mg oral tablet Dose : 20 mg = 1 tab(s), Oral, QID, 30 to 60 minutes before meals, # 30 tab(s), 1 Refill(s), Pharmacy: [id number], IBS (irritable bowel syndrome) Abdominal pain, RUQ vs RLQ, 158, cm, 04/21/25 11:24:00 EDT, Height, kg, 04/21/25 11:24:00 EDT, Dosing Weight Start Date: 04/21/25 Status: Ordered Medication Dispense Status: Completed Quantity: 30.0 Unit: tab(s) Total Allowed Fills: 2 Fills Dispensed: 0 Indications: Unspecified abdominal pain; Irritable bowel syndrome, unspecified; 24 hr dilTIAZem hydrochloride 180 mg extended release oral capsule (20 sources) Calcium Channel Randall Start: 04-22-2024 Cartia XT 180 mg/24 hours oral capsule, extended release Dose : 180 mg = 1 cap(s), Oral, qDay, # 90 cap(s), 0 Refill(s) Start Date: 04/22/24 Status: Ordered Medication Dispense Status: Completed Quantity: 90.0 Unit: cap(s) Total Allowed Fills: 1 Fills Dispensed: 0 Start: 04-29-2019 take 1 capsule by [facility] every hour, then take 1 capsule by mouth once daily dilTIAZem 180 mg/24 hours oral capsule, extended release Dose : 180 mg = 1 cap(s), Oral, qDay, # 90 cap(s), 0 Refill(s) Start Date: 04/29/19 Status: Ordered Start: 04-29-2019 take 1 capsule by [facility] every hour, then take 1 capsule by mouth once daily dilTIAZem 180 mg/24 hours oral capsule, extended release Dose : 180 mg = 1 cap(s), Oral, qDay, # 90 cap(s), 0 Refill(s) Start Date: 04/29/19 Status: Ordered Start: 07-02-2017 End: 10-17-2024 take 1 capsule by mouth once daily, then take 1 capsule by mouth every twenty-four hours Diltiazem Hcl (Cartia Xt) 180 mg capsule,extended release 24hr Discontinued 180 mg PO daily 90 0 July 15, 2024 9:20am October 17, 2024 10:43am docusate sodium 100 mg oral capsule (5 sources) Start: 04-13-2025 take 1 capsule by mouth twice daily Docusate Sodium (Colace) 100 mg capsule Active 100 mg PO TWICE A DAY April 13, 2025 12:00am Complies with drug therapy Start: 03-18-2025 take 1 dose by mouth twice daily Colace Dose : 100 mg =, Oral, BID, 0 Refill(s) Start Date: 03/18/25 Status: Ordered Medication Dispense Status: Completed Total Allowed Fills: 1 Fills Dispensed: 0 estradiol 0.1 mg/ml vaginal cream (14 sources) Estrogen Start: 04-13-2025 Estradiol 0.01 % (0.1 mg/gram) cream Active VAGINAL TWICE A WEEK April 13, 2025 12:00am Complies with drug therapy Start: 03-02-2025 Estrace Vagina l 0.1 mg/g vaginal cream 0.1 mg, Vaginal, qDay, use with enclosed calibrated applicator as directed. wash applicator with mild soap/warm water after use., # 42.5 gram(s), 0 Refill(s), Pharmacy: [id number], Cystocele, midline Atrophic vaginitis, 157.5, cm, 03/02/25 9:24:00 EDT, Height, kg, 03/02/25 9:24:00 EDT, Dosing Weight Start Date: 03/02/25 Status: Ordered Medication Dispense Status: Completed Quantity: 42.5 Unit: g Total Allowed Fills: 1 Fills Dispensed: 0 Indications: Cystocele, midline; Postmenopausal atrophic vaginitis; Start: 05-22-2022 End: 04-13-2025 Estradiol 0.5 mg tablet Disc ontinued 0.5 mg PO .M/w/F June 01, 2022 1:00am April 13, 2025 11:04am gabapentin 100 mg oral capsule (2 sources) Anti-epileptic Agent Start: 04-21-2025 take 1 capsule by mouth at bedtime gabapentin 100 mg oral capsule TAKE 1 CAPSULE BY MOUTH AT BEDTIME Start Date: 04/21/25 Status: Ordered Medication Dispense Status: Completed Total Allowed Fills: 1 Fills Dispensed: 0 Start: 04-13-2025 take 1 capsule by mo [facility] at bedtime Gabapentin 100 mg capsule Active 100 mg PO AT BEDTIME 21 08April 13, 2025 12:00am Complies with drug therapy ibuprofen 600 mg oral tablet (7 sources) Nonsteroidal Anti-inflammatory Drug Start: 01-22-2025 IBU 600 mg oral tablet Dose : 600 mg = 1 tab(s), Oral, q6h, # 40 tab(s), 0 Refill(s), Pharmacy: [facility], 131, cm, 01/22/25 15:10:00 EDT, Height, kg, 01/22/25 15:10:00 EDT, Dosing Weight Start Date: 01/22/25 Status: Ordered Quantity: 40.0 Unit: tab(s) Repeat number: 1 Start: 07-02-2017 End: 02-21-2018 take 1 tablet by mouth once as needed Ibuprofen (Advil) 200 mg tablet Discontinued 200 mg PO ONCE as needed July 02, 2017 1:00am February 21, 2018 10:43am losartan potassium 25 mg oral tablet (20 sources) Angiotensin 2 Receptor Randall Start: 01-22-2025 losartan 25 mg oral tablet Dose : 25 mg = 1 tab(s), Oral, qAM, 0 Refill(s) Start Date: 01/22/25 Status: Ordered Medication Dispense Status: Completed Total Allowed Fills: 1 Fills Dispensed: 0 Start: 12-22-2024 take 1 tablet by arben once daily in the morning losartan 25 mg oral tablet TAKE 1 TABLET BY MOUTH ONCE DAILY IN THE MORNING Start Date: 12/22/24 Status: Ordered Repeat number: 1 Start: 06-01-2022 End: 07-01-2024 take 1 tablet by mouth once daily Losartan 25 mg tablet Discontinued 25 mg PO DAILY June 01, 2022 11:36am July 01, 2024 11:02am magnesium oxide 400 mg oral tablet (10 sources) Start: 10-13-2024 magnesium oxid e 400 mg oral tablet Dose : 400 mg = 1 tab(s), Oral, qDay, 0 Refill(s) Start Date: 10/21/24 Status: Ordered Medication Dispense Status: Completed Total Allowed Fills: 1 Fills Dispensed: 0 metFORMIN hydrochloride 500 mg oral tablet (17 sources) Biguanide Start: 07-02-2017 metFORMIN 500 mg oral tablet (IR) Dose : 500 mg = 1 tab(s), Oral, qDay, # 90 tab(s), 3 Refill(s), Pharmacy: [facility], 157, cm, 04/22/24 9:29:00 EDT, Height, kg, 04/22/24 9:29:00 EDT, Dosing Weight Start Date: 04/22/24 Status: Ordered Medication Dispense Status: Completed Quantity: 90.0 Unit: tab(s) Total Allowed Fills: 4 Fills Dispensed: 0 Multivitamin (Multiple Vitamins) tablet (1 source) Start: 04-13-2025 Multivitamin (Multiple Vitamins) tablet Active 1 {tbl} PO daily April 13, 2025 12:00am Complies with drug therapy Multivitamin preparation (8 sources) Start: 10-30-2024 take 1 tablet by mouth once daily Multivitamin Dose = 1 tab(s), Oral, Daily, 0 Refill(s) Start Date: 10/30/24 Status: Ordered Medication Dispense Status: Completed Total Allowed Fills: 1 Fills Dispensed: 0 Start: 10-30-2024 take 1 tablet by arben th once daily Multivitamin Dose = 1 tab(s), Oral, Daily, 0 Refill(s) Start Date: 10/30/24 Status: Ordered Repeat number: 1 simvastatin 20 mg oral tablet (17 sources) HMG-CoA Reductase Inhibitor Start: 07-02-2017 simvastatin 20 mg or al tablet Dose : 20 mg = 1 tab(s), Oral, qHS, # 90 tab(s), 3 Refill(s), Pharmacy: [facility], 158, cm, 03/18/25 9:08:00 EDT, Height, kg, 03/18/25 9:08:00 EDT, Dosing Weight Start Date: 04/12/25 Status: Ordered Medication Dispense Status: Completed Quantity: 90.0 Unit: tab(s) Total Allowed Fills: 4 Fills Dispensed: 0 Completed/Discontinued Medications Medication Drug Class(es) Dates Sig (Normalized) Sig (Original) carvedilol 12.5 mg oral tablet (20 sources) alpha-Adrenergic Randall, beta-Adrenergic Randall Start: 06-25-2023 End: 10-13-2024 take 1 tablet by mouth at bedtime Carvedilol 12.5 mg tablet Discontinued 12.5 mg PO AT BEDTIME 180 July 18, 2024 9:33am October 13, 2024 9:39am Start: 05-14-2020 End: 06-25-2023 Carvedilol (Coreg) 25 mg tab let Discontinued 0 PO TWICE A DAY 135 3 October 11, 2020 1:45pm May 23, 2021 9:59am 12.5 mg AM, 25 mg PM PO; Start: 10-28-2019 End: 05-14-2020 take 0.5 tablet by mouth in the morning, then take 1 tablet by mouth in the evening Carvedilol (Coreg) 25 mg tablet Discontinued 37.5 mg PO .COMPLEX 135 90 3 October 28, 2019 1:38pm May 14, 2020 2:07pm 37.5 mg PO; 1/2 tablet in the morning and 1 whole tablet in the evening; Start: 07-03-2017 End: 08-20-2017 Carvedilol Discontinued 0 PO TWICE A DAY 180 August 13, 2017 11:54am August 20, 2017 12:53pm one half tablet in the morning and one tablet in the morning Start: 07-02-2017 End: 10-28-2019 take 1 tablet by mouth in the evening Carvedilol (Coreg) 25 mg tablet Discontinued 25 mg PO .COMPLEX 120 3 October 28, 2019 11:00am October 28, 2019 1:39pm 25 mg PO 1/2 tablet in the morning and 1 whole tablet in the evening furosemide 20 mg oral tablet (20 sources) Loop Diuretic Start: 07-13-2022 End: 06-05-2023 take 1 tablet by mouth every other day as needed for edema Furosemide 20 mg tablet Discontinued 20 mg PO every other day as needed for edema 90 3 July 13, 2022 5:11pm June 05, 2023 11:06am Start: 07-02-2017 End: 07-13-2022 take 1 tablet by mouth once daily as needed for edema Furosemide 20 mg tablet Discontinued 20 mg PO daily as needed for edema 90 3 July 13, 2022 5:10pm July 13, 2022 5:11pm Drug Treatment Unknown - unk nown (1 source) No information a vailable. Problems Active Problems Problem Classification Problem Date Documented Da te Episodic/Chronic Abdominal pain (12 sources) Epigastric pain; Translations: [Right lower quadrant pain] 04-05-2021 Episodic Anal and rectal conditions (5 sources) Disorder of rectum 01-30-2025 Episodic Biliary tract disease (10 sources) Biliary calculus 05-06-2021 Episodic Chronic kidney disease (3 sources) Chronic kidney disease stage 3 11-02-2020 Chronic Diabetes mellitus with complications (2 sources) Type 2 diabetes mellitus with other specified complication; Translations: [Type 2 diabetes mellitus with other specified complication] Onset: 05-12-2025 Chronic Diabetes mellitus without complication (18 sources) Type 2 diabetes mellitus without complication; Translations: [Type 2 diabetes mellitus without complications] 04-28-2020 Chronic Disorders of lipid metabolism (20 sources) Hyperlipidemia; Translations: [Hyperlipidemia, unspecified] Onset: 08-28-2024 04-28-2020 Chronic Essential hypertension (20 sources) Hypertensive disorder; Translations: [Essential (primary) hypertension] Onset: 04-24-2023 04-29-2019 Chronic Fluid and electrolyte disorders (12 sources) Hyponatremia; Translations: [Hypo-osmolality and hyponatremia] Onset: 05-12-2025 11-06-2022 Episodic Genitourinary symptoms and ill-defined conditions (8 sources) Proteinuria 10-24-2024 Episodic Heart valve disorders (7 sources) Aortic valve regurgitation; Translations: [Nonrheumatic aortic (valve) insufficiency] 06-01-2022 Chronic Menopausal disorders (12 sources) Atrophy of vagina; Translations: [Atrophic vaginitis] Onset: 01-22-2025 05-22-2022 Chronic Nausea and vomiting (11 sources) Nausea 04-05-2021 Episodic Nonspecific chest pain (6 sources) Chest pain; Translations: [Chest pain, unspecified] 01-21-2018 Episodic Other acquired deformities (5 sources) Lumbar spondylolisthesis; Translations: [Spondylolisthesis, lumbar region] 07-01-2024 Episodic Comment on above: Patient diagnosed wi th this years ago. Other ear and sense organ disorders (4 sources) Hearing loss of left ear; Translations: [Unspecified hearing loss, left ear] 10-15-2024 Chronic Other ear and sense organ disorders (1 source) Unspecified hearing loss, left ear; Translations: [Unspecified hearing loss, left ear] Onset: 01-07-2025 Chronic Other gastrointestinal disorders (1 source) Irritable bowel syndrome 04-21-2025 Chronic Other lower respiratory disease (6 sources) Dyspnea on exertion; Translations: [Dyspnea, unspecified] 05-31-2022 Episodic Other nervous system disorders (5 sources) Neuropathy; Translations: [Polyneuropathy, unspecified] 10-15-2024 Chronic Comment on above: Findings clinically consistent with idiopathic small fiber neuropathy based on history and exam findings. Findings clinically consistent with idiopathic small fiber neuropathy. Other nervous system disorders (1 source) Polyneuropathy, unspecified; Translations: [Polyneuropathy, unspecified] Onset: 01-07-2025 Chronic Other nervous system disorders (5 sources) Finding of sensation of lower limb; Translations: [Unspecified disturbances of skin sensation] 06-05-2023 Episodic Other nervous system disorders (5 sources) Tremor; Translations: [Tremor, unspecified] 10-15-2024 Episodic Comment on above: Likely an essential tremor; there is a familial component. Other screening for suspected conditions (not mental disorders or infectious disease) (5 sources) Other specified abnormal findings of blood chemistry; Translations: [Encounter for screening mammogram for malignant neoplasm of breast] Onset: 02-10-2025 Episodic Other skin disorders (6 sources) Night sweats; Translations: [Generalized hyperhidrosis] 06-01-2022 Episodic Prolapse of female genital organs (10 sources) Midline cystocele; Translations: [Cystocele, midline] Onset: 01-22-2025 10-30-2024 Chronic Residual codes; unclassified (8 sources) Postmenopausal state 04-22-2024 Episodic Residual codes; unclassified (7 sources) At risk of coronary heart disease 01-06-2025 Episodic Residual codes; unclassified (7 sources) History of colonoscopy 01-06-2025 Episodic Residual codes; unclassified (7 sources) History of total hysterectomy with bilateral salpingo-oophorectom y 01-06-2025 Episodic Residual codes; unclassified (1 source) Menopause present; Translations: [Asymptomatic menopausal state] Onset: 01-22-2025 Episodic Spondylosis; intervertebral disc disorders; other back problems (1 source) Degeneration of lumbar intervertebral disc 04-21-2025 Chronic Unclassified (1 source) No current problems or disability 07-09-2017 Unclassified (18 sources) Patient encounter status 04-28-2020 Urinary tract infections (5 sources) Urinary tract infection caused by Klebsiella 01-30-2025 Episodic Past or Other Problems Problem Classification Problem Date Documented Da te Episodic/Chronic Abdominal hernia (2 sources) Hernia of anterior abdominal wall; Translations: [Unspecified abdominal hernia without obstruction or gangrene] Onset: 01-22-2025 Episodic Other acquired deformities (1 source) Spondylolisthesis, lumbar region; Translations: [Spondylolisthesis, lumbar region] Onset: 01-07-2025 Episodic Other gastrointestinal disorders (1 source) Diarrhea 04-05-2021 Episodic Other lower respiratory disease (1 source) Cough 11-02-2020 Episodic Other nervous system disorders (2 sources) Unspecified disturbances of skin sensation; Translations: [Other symptoms involving skin and integumentary tissues] 06-05-2023 Episodic Other nervous system disorders (1 source) Tremor, unspecified; Translations: [Tremor, unspecified] Onset: 01-07-2025 Episodic Residual codes; unclassified (1 source) Asymptomatic menopausal state; Translations: [Asymptomatic menopausal state] Onset: 01-22-2025 Episodic Results Test Name Value Interpretation Reference Range Facility Neurology Visit Reporton Neurology Visit Report [facility] [address] [place] [address], [place] [address] OFFICE VISIT Date of Service: 05/18/25 MR#: [id number] Acct: [id number] Name: MATT CASTILLO Rep #: [id number] : 1945 Provider: ILIA coker Age/Sex: 80/F Location: [facility]. Status: Signed [facility] Chief Complaint: Follow-up Details: History of present illness: Mrs. Castillo is a 79-year-old right handed female established care with neurologist Dr. Jones on 07/01/2024 for peripheral neuropathy of lower extremities. 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 She is not a smoker. The patient's family history is negative for neuropathies. The patient stated that an older sister did have a tremor. The patient endorses paresthesias that are present in both feet; the quality is described as burning and tingling with intermittent intensities. The paresthesias are only felt below the ankle. There is no presence of sensory abnormalities in the upper extremities. Some days it is relatively mild and other days it is much more intense. This problem is usually noted at night when she is attempting to sleep. The patient's diagnosis of lumbar spondylolisthesis (level not known by the patient) causes intermittent pain on the right side at about L5-S1, which may radiate towards the right hip. She does have flat feet and bilateral hammertoes. Tarsal tunnel syndrome is of consideration as her foot anatomy can put additional strain on her tibial nerve. The patient has been seen by podiatry. Evaluation included EMG/NCS, which were read as normal. Additionally, she had a skin biopsy performed in April 2024. Pathology report was reviewed by Dr. Jones at her initial visit. Nerve fiber number appeared normal; however, there appeared to be degenerative changes within the epidermal nerves. The report goes on to say that this is not necessarily indicative of small fiber neuropathy specifically, but a significant number of patients may go on to develop small fiber neuropathy if they do not already have that. 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 Several labs were ordered and evaluated to assess for underlying etiologies. She has chronic hyponatremia, monitored by primary care. Vitamins B1, B6, B12, D,folate were within normal range. Her ESR/CRP were within normal range. Her magnesium was 2.3. Her SARAVANAN w/ reflex and NEVIN + protein electrophoresis were unremarkable. Her most recent hemoglobin A1c was 5.6%. Etiology appears to be idiopathic; however, genetics, age, diabetes, and electrolyte disturbances could all be contributing factors. Treatment recommendations included magnesium oxide 400 mg nightly and Salonpas with lidocaine as needed for pain on the bilateral feet/calves. The patient states that this OTC combination has been beneficial; however, the burning sensation is reported to be quite bothersome, especially in the evenings. Gabapentin was initiated in March 2025. Interim History: Mrs. Castillo presents unaccompanied to neurology today 05/18/2025 for a 1 month follow-up visit after initiating gabapentin 100 mg nightly. Patient reports gabapentin has been very beneficial and she now only experiences burning/tingling approximately once per week and it dissipates with use of Salonpas with lidocaine. She denies any side effects of the gabapentin and reports improved sleep. ROS: General: No fatigue. No recent weight loss/gain. No recent illness. No fevers. No recent falls. Improved sleep quality reported. Neuro: No headaches. No dizziness. Positive for bilateral hand tremors. Paroxysmal neuropathic symptoms of the bilateral lower extremities. Cardio: No palpitations. No chest pain or discomfort. No edema. No orthostasis. Respiratory: Nonsmoker. No cough. No shortness of breath. No wheezing. Musculoskeletal: No use of assistive devices. No neck pain. Chronic back and right hip pain. PHYSICAL EXAM: Constitutional: Well-developed, well-nourished right-handed female in no acute distress. Respiratory: Normal effort. Symmetric chest movement. Clear to auscultation bilaterally. Cardio: Regular rate and rhythm. Musculoskeletal: No muscle weakness. No difficulties with ROM. Extremities: Absence of edema. No peripheral cyanosis, erythema, or discoloration. Fallen arches in feet. Bilateral hammertoes. Bunion on left first toe. (more content not included)... Normal [facility] FT4on 05-13-2025 Free T4 [Mass/Vol] 0.88 ng/dL Normal 0.76-1.46 [facility] Comment on above: Order Comment: Order ed by Discern Performed By: #### A MOSES CARRILLO #### [address] [address] .GFRon 05-12-2025 Estimated Glomerular Filtration Rate 68 ml/min/1.73sqm Normal [facility] Comment on above: Result Comment: Stages of Chronic Kidney Disease (CKD) Stage Description eGFR(ml/min/1.73 sq.m.) CKD 1 Normal kidney function or >=90 normal kindney function with possible kidney damage (ex. Proteinuria) CKD 2 Kidney damage with mild loss 60-89 of kidney function CKD 3a Mild to moderate loss of kidney 45-59 function CKD 3b Moderate to severe loss of 30-44 of kindey function CKD 4 Severe loss of kidney function 15-29 CKD 5 Kidney failure <15 Note: (go live 2024) the eGFR calculation was updated to the 2020 CKD-EPI creatinine equation without a race factor to calculate the eGFR results. Performed By: #### A MOSES CARRILLO #### [address] [address] BMPon 05-12-2025 BUN/Creatinine Ratio 15 ratio Normal 7-27 [facility] Comment on above: Performed By: #### A MOSES CARRILLO #### [address] [address] Calcium [Mass/Vol] 9.3 mg/dL Normal 8.4-10.2 [facility] Comment on above: Performed By: #### A MOSES CARRILLO #### [address] [address] Chloride [Moles/Vol] 92 mmol/L Low 98-107 [facility] Comment on above: Performed By: #### A MOSES CARRILLO #### Zhang [address] [address] CO2 [Moles/Vol] 32 mmol/L High 23-31 [facility] Comment on above: Performed By: #### MSOES JENKINS #### [address] [address] Creatinine [Mass/Vol] 0.86 mg/dL Normal 0.51-0.95 [facility] Comment on above: Performed By: #### MOSES JENKINS #### [address] [address] Electrolyte Balance 6.0 mEq/L Normal 4.0-15.0 [facility] Comment on above: Performed By: #### MOSES JENKINS #### [address] [address] Glucose [Mass/Vol] 98 mg/dL Normal 83-110 [facility] Comment on above: Performed By: #### MOSES JENKINS #### [address] [address] Potassium [Moles/Vol] 4.6 mmol/L Normal 3.5-5.1 [facility] Comment on above: Performed By: #### MOSES JENKINS #### [address] [address] Sodium [Moles/Vol] 130 mmol/L Low 136-145 [facility] Comment on above: Performed By: #### MOSES JENKINS #### [address] [address] Urea nitrogen [Mass/Vol] 13 mg/dL Normal 7-18 [facility] Comment on above: Performed By: #### MOSES JENKINS #### [address] [address] LABORATORYOrdered By: SYSTEM SYSTEM on 05-12-2025 Calcium [Mass/Vol] 9.3 mg/dL Normal 8.4 - 10. 2 mg/dL AO ADM SS Chloride [Moles/Vol] 92 mmol/L Low 98 - 10 7 mmol/L AO ADM SS CO2 [Moles/Vol] 32 mmol/L High 23 - 31 mmol/L AO ADM SS Creatinine [Mass/Vol] 0.86 mg/dL Normal 0.51 - 0.95 mg/dL AO ADM SS Electrolyte Balance 6.0 mEq/L Normal 4.0 - 15 .0 mEq/L AO ADM SS Free T4 [Mass/Vol] 0.88 ng/dL Normal 0.76 - 1. 46 ng/dL AO ADM SS GLOMERULAR FILTRATION RATE/1.73 SQ M.PREDICTED:ARVRAT:P T:SER/PLAS/BLD:QN:CR EATININE-BASED FORMULA (CKD-EPI 2020) 68 ml/min/1.73sqm Invalid Interpretation Code AO Chemistry S Comment on above: Interpretive Data: Stages of Chronic Kidney Disease (CKD) Stage Description eGFR(ml/min/1.73 sq.m.) CKD 1 Normal kidney function or >=90 normal kindney function with possible kidney damage (ex. Proteinuria) CKD 2 Kidney damage with mild loss 60-89 of kidney function CKD 3a Mild to moderate loss of kidney 45-59 function CKD 3b Moderate to severe loss of 30-44 of kindey function CKD 4 Severe loss of kidney function 15-29 CKD 5 Kidney failure <15 Note: (go live 2024) the eGFR calculation was updated to the 2020 CKD-EPI creatinine equation without a race factor to calculate the eGFR results. Glucose [Mass/Vol] 98 mg/dL Normal 83 - 110 mg/dL AO ADM SS Potassium [Moles/Vol] 4.6 mmol/L Normal 3.5 - 5.1 mmol/L AO ADM SS Sodium [Moles/Vol] 130 mmol/L Low 136 - 145 mmol/L AO ADM SS TSH Qn 4.30 m[IU]/L High 0.36 - 3.74 mcIU/mL AO ADM SS Urea nitrogen [Mass/Vol] 13 mg/dL Normal 7 - 18 mg/dL AO ADM SS Urea nitrogen/Creatinine [Mass ratio] 15 ratio Normal 7 - 27 ratio AO ADM SS LABORATORYOrdered By: Sourav Coronado on 05-12-2025 Cholesterol [Mass/Vol] 170 mg/dL Normal 0 - 200 mg/dL AO ADM SS Comment on above: Interpretive Data: C holesterol Reference Interval: Less than 200 Desirable 200-239 Borderline high risk 240 and above High risk Cholesterol in HDL [Mass/Vol] 63 mg/dL High 40 - 60 mg/dL AO ADM SS Cholesterol in LDL [Mass/Vol] 98 mg/dL Normal 0 - 130 mg/dL AO ADM SS Triglyceride [Mass/Vol] 47 mg/dL Normal 0 - 150 mg/dL AO ADM SS Comment on above: Interpretive Data: T riglyceride Reference Interval: Less than 150 Normal 150-199 Borderline high risk 200-499 High risk 500 or higher Very high risk LIPIDon 05-12-2025 Cholesterol [Mass/Vol] 170 mg/dL Normal 0-200 [facility] Comment on above: Result Comment: Chol esterol Reference Interval: Less than 200 Desirable 200-239 Borderline high risk 240 and above High risk Performed By: #### A MOSES CARRILLO #### [address] [address] Cholesterol in HDL [Mass/Vol] 63 mg/dL High 40-60 [facility] Comment on above: Performed By: #### A MOSES CARRILLO #### [address] [address] Cholesterol in LDL [Mass/Vol] 98 mg/dL Normal 0-130 [facility] Comment on above: Performed By: #### A MOSES CARRILLO #### [address] [address] Triglyceride [Mass/Vol] 47 mg/dL Normal 0-150 [facility] Comment on above: Result Comment: Trig lyceride Reference Interval: Less than 150 Normal 150-199 Borderline high risk 200-499 High risk 500 or higher Very high risk Performed By: #### A MOSES CARRILLO #### [address] [address] TSHRon 05-12-2025 TSH Qn 4.30 m[IU]/L High 0.36-3.74 [facility] Comment on above: Performed By: #### A MOSES CARRILLO #### [address] [address] [address] ABDOMEN/PELVIS W/CONTRAST on 04-15-2025 CT ABDOMEN/PELVIS W/CONTRAST ORIGINAL EXAMINATION: CT OF THE ABDOMEN AND PELVIS WITH CONTRAST04/14/2025 11:23 am TECHNIQUE: CT of the abdomen and pelvis was performed with the administration of intravenous contrast. Multiplanar reformatted images are provided for review. Automated exposure control, iterative reconstruction, and/or weight based adjustment of the mA/kV was utilized to reduce the radiation dose to as low as reasonably achievable. COMPARISON: 03/25/2025 ultrasound HISTORY: ORDERING SYSTEM PROVIDED HISTORY: Reason for Exam: Abdominal pain, acute, nonlocalized FINDINGS: Provided images of the lower thorax demonstrate minimal right middle lobe subsegmental atelectasis. No pleural or pericardial effusion. The liver is unremarkable in size, contour, and attenuation. There is no intra or extrahepatic biliary duct dilation. No focal mass identified. There is cholelithiasis. The pancreas, spleen, and bilateral adrenal glands are unremarkable. The kidneys enhance symmetrically. There is no hydronephrosis. Distal esophagus and stomach are normal. There is fluid throughout the small bowel, however without dilatation. Within the distal ileal loops, there is some small bowel feces sign. There is stool noted diffusely throughout the colon. Colon is normal in course and caliber.. No evidence of appendicitis. There is no free intraperitoneal air or fluid. The aorta is nonaneurysmal. No pathologically enlarged lymph nodes are identified. The urinary bladder is adequately distended without wall thickening. There is evidence of cystocele. No suspicious osteolytic or osteoblastic lesions are identified. There are bilateral L5 pars defects with grade 2 anterolisthesis of L5 and S1 with disc uncovering. There are degenerative changes of the spine. IMPRESSION: 1. No acute intra-abdominal or pelvic abnormality. 2. Formed stool throughout the colon with small bowel feces sign, may be indicative of constipation or slow motility. 3. Cholelithiasis. 4. Cystocele. 5. Bilateral L5 pars defects with grade 2 anterolisthesis of L5 and S1. Interpreted by: Sebastian Gama DO Preliminary Report By: Sebastian Gama DO Electronically signed By Sebastian Gama DO Dictated Date: 04/15/2025 1:57:47 PM Prelim Date: 04/15/2025 2:03:36 PM Sign Date: 04/15/2025 2:03:36 PM Ordering Provider: DEREK Noel [facility] Neurology Visit Reporton Neurology Visit Report [facility] [address] [place] [address], [address] [place] [address] OFFICE VISIT Date of Service: 04/13/25 MR#: [id number] Acct: [id number] Name: MATT CASTILLO Rep #: [id number] : 1945 Provider: ILIA coker Age/Sex: 80/F Location: [facility] Status: Signed HPI HPI Chief Complaint: 6-month follow-up Details: History of present illness: Mrs. Castillo is a 79-year-old right handed female established care with neurologist Dr. Jones on 07/01/2024 for peripheral neuropathy of lower extremities. 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 She is not a smoker. The patient's family history is negative for neuropathies. The patient stated that an older sister did have a tremor. The patient endorses paresthesias that are present in both feet; the quality is described as burning and tingling with intermittent intensities. Some days it is relatively mild and other days it is much more intense. This problem is usually noted at night when she is attempting to sleep. The patient's diagnosis of lumbar spondylolisthesis (level not known by the patient) causes intermittent pain on the right side at about L5-S1, which may radiate towards the right hip. The patient has been seen by podiatry. Evaluation included EMG and nerve conduction studies, which were read as normal. Additionally, she had a skin biopsy performed in April 2024. Pathology report was reviewed by Dr. Jones at her initial visit. Nerve fiber number appeared normal; however, there appeared to be degenerative changes within the epidermal nerves. The report goes on to say that this is not necessarily indicative of small fiber neuropathy specifically, but a significant number of patients may go on to develop small fiber neuropathy if they do not already have that. 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 The patient is noted to have flat feet and bilateral hammertoes. Tarsal tunnel syndrome is of consideration as her foot anatomy can put additional strain on her tibial nerve. The paresthesias are only felt below the ankle. There is no presence of sensory abnormalities in the upper extremities. Several labs were ordered and evaluated to assess for underlying etiologies. She has chronic hyponatremia with a sodium of 128 mmol/L, which appears to be her baseline. The patient states that this is being monitored and managed by her primary care. Vitamins B1, B6, B12, and folate were within normal range. Her ESR and sed rate were within normal range. Her magnesium was 2.3. Her SARAVANAN w/ reflex and NEVIN + protein electrophoresis were unremarkable. 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 Treatment recommendations included magnesium oxide 400 mg nightly and Aspercreme as needed for pain on the bilateral feet. The patient states that this combination has been beneficial, overall reducing her pain. A trial of gabapentin at night was discussed; however, it was opted to defer this treatment for the time being. This could be considered in the future if the peripheral neuropathy were to progress. Interim History: Mrs. Castillo presents unaccompanied to neurology today 04/13/2025 for a 6-month follow-up visit. Routine labs were drawn by her primary care physician and were reviewed today. Her sodium level was 131, she has chronic hyponatremia. Her TSH was slightly elevated at 3.90 with a normal free T4. Vitamin D level was sufficient. Her hemoglobin A1c was normal at 5.6%. Her symptoms related to her idiopathic small fiber neuropathy are essentially unchanged since her previous visit. However the burning sensation is reported to be quite bothersome, especially in the evenings. She would like to pursue further pharmacological treatment. ROS: General: No fatigue. No recent weight loss/gain. No recent illness. No fevers. No recent falls. Neuro: No headaches. No dizziness. Positive for bilateral hand tremors. Positive for lower extremity neuropathy. Cardio: No palpitations. No chest pain or discomfort. No edema. Respiratory: Nonsmoker. No cough. No shortness of breath. No wheezing. Musculoskeletal: No use of assistive devices. No neck pain. Chronic back and right hip pain. PHYSICAL EXAM: Constitutional: Well-developed, well-no (more content not included)... Normal [facility] US ABDOMEN COMPLETEon 2024 US ABDOMEN COMPLETE ORIGINAL EXAMINATION: COMPLETE ABDOMINAL ULTRASOUND03/25/2025 8:32 am ULTRASOUND ABDOMEN COMPLETE, TECHNIQUE: This report is based on interpretation of permanently recorded ultrasound images. COMPARISON: Ultrasound 05/03/2021 HISTORY: ORDERING SYSTEM PROVIDED HISTORY: Reason for Exam: abdominal pain since , eval for gallbladder or other causes in RUQ and RLQ. S/p appendectomy and oopherectomy, FINDINGS: Liver: The visualized liver is normal in size and echogenicity. No suspicious focal liver lesion is seen. There is antegrade blood flow in the main portal vein. Bile ducts: There is no intrahepatic bile duct dilatation. The common duct is 3 mm at the peter hepatis. Gallbladder: Moderately distended with multiple calculi. No abnormal wall thickening. Negative sonographic Serrano's sign.. Pancreas: The visualized pancreas shows no focal lesion or mass but some portions are obscured by bowel gas artifacts. Spleen: Normal in size and echogenicity. No ascites. Limited survey images of the kidneys show normal cortical thickness and echogenicity and no pelvocaliectasis. . Visualized aorta: Atherosclerotic changes. No aneurysm is seen. Upper IVC: Normal IMPRESSION: Previously known gallstones without other secondary signs of acute cholecystitis. Interpreted by: King Kent MD Preliminary Report By: King Kent MD Electronically signed By King Kent MD Dictated Date: 03/25/2025 9:11:26 AM Prelim Date: 03/25/2025 9:15:35 AM Sign Date: 03/25/2025 9:15:35 AM Ordering Provider: DEREK Noel [facility] .Auto Diffon 03-18-2025 Basophil, Absolute 0.0 10 3/mcL Normal 0.0-0.3 [facility] Comment on above: Performed By: #### A MOSES CARRILLO #### [address] [address] Basophils/100 WBC (Bld) 0.2 % Normal 0.0-2.5 [facility] Comment on above: Performed By: #### A MOSES CARRILLO #### [address] [address] Eosinophil, Absolute 0.0 10 3/mcL Normal 0.0-0.7 [facility] Comment on above: Performed By: #### A MOSES CARRILLO #### [address] [address] Eosinophils/100 WBC (Bld) 0.2 % Normal 0.0-6.0 [facility] Comment on above: Performed By: #### A MOSES CARRILLO #### [address] [address] Lymphocyte, Absolute 0.4 10 3/mcL Low 0.9-4.3 [facility] Comment on above: Performed By: #### A MOSES CARRILLO #### [address] [address] Lymphocytes/100 WBC (Bld) 5.1 % Low 20.0-40.0 [facility] Comment on above: Performed By: #### A MOSES CARRILLO #### [address] [address] Monocyte, Absolute 0.3 10 3/mcL Normal 0.1-1.4 [facility] Comment on above: Performed By: #### A MOSES CARRILLO #### [address] [address] Monocytes/100 WBC (Bld) 3.5 % Normal 2.0-13.0 [facility] Comment on above: Performed By: #### A MOSES CARRILLO #### [address] [address] Neutrophils/100 WBC (Bld) 91.0 % High 50.0-75.0 [facility] Comment on above: Performed By: #### A MOSES CARRILLO #### [address] [address] .GFRon 03-18-2025 Estimated Glomerular Filtration Rate 66 ml/min/1.73sqm Normal [facility] Comment on above: Result Comment: Stages of Chronic Kidney Disease (CKD) Stage Description eGFR(ml/min/1.73 sq.m.) CKD 1 Normal kidney function or >=90 normal kindney function with possible kidney damage (ex. Proteinuria) CKD 2 Kidney damage with mild loss 60-89 of kidney function CKD 3a Mild to moderate loss of kidney 45-59 function CKD 3b Moderate to severe loss of 30-44 of kindey function CKD 4 Severe loss of kidney function 15-29 CKD 5 Kidney failure <15 Note: (go live 2024) the eGFR calculation was updated to the 2020 CKD-EPI creatinine equation without a race factor to calculate the eGFR results. Performed By: #### A MOSES CARRILLO #### [address] [address] .NEUABSon 03-18-2025 Neutrophil, Absolute 7.6 10 3/mcL Normal 2.3-8.1 [facility] Comment on above: Performed By: #### A MOSES CARRILLO #### [address] [address] A1Con 03-18-2025 Glucose [Mass/Vol] 114 mg/dL Normal [facility] Comment on above: Result Comment: Aurelia mated Average Glucose calculated by equation ((28.7xA1C)-46.7) Estimated average glucose (eAG) is a calculated value from Hemoglobin A1C and is account services representative of the average blood glucose level in the last 2-3 month period. Normal range: less than 114 mg/dL Performed By: #### A MOSES CARRILLO #### [address] [address] HbA1c (Bld) [Mass fraction] 5.6 % Normal 4.3-6.4 [facility] Comment on above: Performed By: #### A MOSES CARRILLO #### [address] [address] CBCon 03-18-2025 Erythrocyte distribution width (RBC) [Ratio] 14.1 % Normal 11.5-15.5 [facility] Comment on above: Performed By: #### A MOSES CARRILLO #### [place] [address] Hematocrit (Bld) [Volume fraction] 38.5 % Normal 34.0-46.0 [facility] Comment on above: Performed By: #### A MOSES CARRILLO #### [place] [address] Hgb 13.1 G/dL Normal 12.0-16.0 [facility] Comment on above: Performed By: #### A MOSES CARRILLO #### [address] [address] MCH (RBC) [Entitic mass] 29.0 pg Normal 27.0-33.0 [facility] Comment on above: Performed By: #### A MOSES CARRILLO #### [place] [address] MCHC 33.9 G/dL Normal 32.0-36.0 [facility] Comment on above: Performed By: #### A MOSES CARRILLO #### [place] [id number] MCV (RBC) [Entitic vol] 85.5 fL Normal 80.0-99.0 [facility] Comment on above: Performed By: #### A MOSES CARRILLO #### [address] [address] Platelet 188 10 3/mcL Normal 150-450 [facility] Comment on above: Performed By: #### A MOSES CARRILLO #### [address] [address] Platelet mean volume (Bld) [Entitic vol] 8.6 fL Normal 6.6-10.5 [facility] Comment on above: Performed By: #### A MOSES CARRILLO #### [address] [address] RBC 4.50 10 6/mcL Normal 4.10-5.30 [facility] Comment on above: Performed By: #### A MOSES CARRILLO #### [address] [address] WBC 8.4 10 3/mcL Normal 4.5-10.8 [facility] Comment on above: Performed By: #### A MOSES CARRILLO #### [address] [address] CMPon 03-18-2025 Albumin Level 4.2 G/dL Normal 3.4-4.8 [facility] Comment on above: Performed By: #### A MOSES CARRILLO #### [address] [address] Albumin/Globulin [Mass ratio] 1.3 {ratio} Normal 1.1-2.5 [facility] Comment on above: Performed By: #### A MOSES CARRILLO #### [address] [address] ALP [Catalytic activity/Vol] 64 U/L Normal 40-135 [facility] Comment on above: Performed By: #### A MOSES CARRILLO #### [address] [address] ALT [Catalytic activity/Vol] 31 U/L Normal 14-59 [facility] Comment on above: Performed By: #### A MOSES CARRILLO #### [address] [address] AST [Catalytic activity/Vol] 25 U/L Normal 10-40 [facility] Comment on above: Performed By: #### A MOSES CARRILLO #### [address] [address] Bili Total 0.6 mg/dL Normal 0.2-1.0 [facility] Comment on above: Result Comment: Use of this assay is not recommended for patients undergoing treatment with eltrombopag due to the potential for falsely elevated results. Performed By: #### A MOSES CARRILLO #### [place] [address] BUN/Creatinine Ratio 11 ratio Normal 7-27 [facility] Comment on above: Performed By: #### A MOSES CARRILLO #### [place] [address] Calcium [Mass/Vol] 9.2 mg/dL Normal 8.4-10.2 [facility] Comment on above: Performed By: #### A MOSES CARRILLO #### [place] [address] Chloride [Moles/Vol] 95 mmol/L Low 98-107 [facility] Comment on above: Performed By: #### A MOSES CARRILLO #### [place] [address] CO2 [Moles/Vol] 32 mmol/L High 23-31 [facility] Comment on above: Performed By: #### A MOSES CARRILLO #### [place] [address] Creatinine [Mass/Vol] 0.89 mg/dL Normal 0.51-0.95 [facility] Comment on above: Performed By: #### A MOSES CARRILLO #### [place] [address] Electrolyte Balance 4.0 mEq/L Normal 4.0-15.0 [facility] Comment on above: Performed By: #### A MOSES CARRILLO #### [place] [address] Globulin 3.2 G/dL Normal 2.7-4.4 [facility] Comment on above: Performed By: #### OLY JENKINSGEL #### [place] [address] Glucose [Mass/Vol] 102 mg/dL Normal 83-110 [facility] Comment on above: Performed By: #### A GERARDO ABSGEL #### [place] [address] Potassium [Moles/Vol] 4.7 mmol/L Normal 3.5-5.1 [facility] Comment on above: Performed By: #### A GERARDO ABSGEL #### [place] [address] Sodium [Moles/Vol] 131 mmol/L Low 136-145 [facility] Comment on above: Performed By: #### OLY JENKINSGEL #### [place] [address] Total Protein 7.4 G/dL Normal 6.4-8.2 [facility] Comment on above: Performed By: #### OLY JENKINSGEL #### [place] [address] Urea nitrogen [Mass/Vol] 10 mg/dL Normal 7-18 [facility] Comment on above: Performed By: #### OLY JENKINSGEL #### [address] [address] FT4on 03-18-2025 Free T4 [Mass/Vol] 0.85 ng/dL Normal 0.76-1.46 [facility] Comment on above: Order Comment: Order ed by Discern Performed By: #### MOSES JENKINS #### [place] [address] LABORATORYOrdered By: SYSTEM SYSTEM on 03-18-2025 25-hydroxyvitamin D3 [Mass/Vol] 69.6 ng/mL Invalid Interpretation Code AO ADM SS Comment on above: Interpretive Data: I nterpretive Values Based on Total 25(OH) Vitamin D: Deficient <20 ng/mL Insufficient 20 - <30 ng/mL Sufficient 30-100 ng/mL Albumin BCP dye [Mass/Vol] 4.2 G/dL Normal 3.4 - 4.8 G/dL AO ADM SS Albumin/Globulin [Mass ratio] 1.3 {ratio} Normal 1.1 - 2.5 ratio AO ADM SS ALP [Catalytic activity/Vol] 64 U/L Normal 40 - 135 U/L AO ADM SS ALT With P-5'-P [Catalytic activity/Vol] 31 U/L Normal 14 - 59 U/L AO ADM SS AST With P-5'-P [Catalytic activity/Vol] 25 U/L Normal 10 - 40 U/L AO ADM SS Basophils (Bld) [#/Vol] 0.0 103/mcL Normal 0.0 - 0.3 10^3/mcL AO Workflow SS Basophils/100 WBC (Bld) 0.2 % Normal 0.0 - 2.5 % AO Workflow SS Bilirubin [Mass/Vol] 0.6 mg/dL Normal 0.2 - 1 .0 mg/dL AO ADM SS Comment on above: Interpretive Data: U se of this assay is not recommended for patients undergoing treatment with eltrombopag due to the potential for falsely elevated results. Calcium [Mass/Vol] 9.2 mg/dL Normal 8.4 - 10. 2 mg/dL AO ADM SS Chloride [Moles/Vol] 95 mmol/L Low 98 - 10 7 mmol/L AO ADM SS CO2 [Moles/Vol] 32 mmol/L High 23 - 31 mmol/L AO ADM SS Creatinine [Mass/Vol] 0.89 mg/dL Normal 0.51 - 0.95 mg/dL AO ADM SS Electrolyte Balance 4.0 mEq/L Normal 4.0 - 15 .0 mEq/L AO ADM SS Eosinophil, Absolute 0.0 103/mcL Normal 0.0 - 0 .7 10^3/mcL AO Workflow SS Eosinophils/100 WBC (Bld) 0.2 % Normal 0.0 - 6.0 % AO Workflow SS Erythrocyte distribution width (RBC) [Ratio] 14.1 % Normal 11.5 - 15.5 % AO Workflow SS Estimated Glomerular Filtration Rate 66 ml/min/1.73sqm Invalid Interpretation Code AO Chemistry S Comment on above: Interpretive Data: Stages of Chronic Kidney Disease (CKD) Stage Description eGFR(ml/min/1.73 sq.m.) CKD 1 Normal kidney function or >=90 normal kindney function with possible kidney damage (ex. Proteinuria) CKD 2 Kidney damage with mild loss 60-89 of kidney function CKD 3a Mild to moderate loss of kidney 45-59 function CKD 3b Moderate to severe loss of 30-44 of kindey function CKD 4 Severe loss of kidney function 15-29 CKD 5 Kidney failure <15 Note: (go live 2024) the eGFR calculation was updated to the 2020 CKD-EPI creatinine equation without a race factor to calculate the eGFR results. Free T4 [Mass/Vol] 0.85 ng/dL Normal 0.76 - 1. 46 ng/dL AO ADM SS Globulin 3.2 G/dL Normal 2.7 - 4.4 G/dL AO ADM SS Glucose [Mass/Vol] 102 mg/dL Normal 83 - 110 mg/dL AO ADM SS Glucose [Mass/Vol] 114 mg/dL Invalid Interpretation Code AO Chemistry S Comment on above: Interpretive Data: E stimated average glucose (eAG) is a calculated value from Hemoglobin A1C and is account services representative of the average blood glucose level in the last 2-3 month period. Normal range: less than 114 mg/dL HbA1c (Bld) [Mass fraction] 5.6 % Normal 4.3 - 6.4 % AO ADM SS Hematocrit (Bld) [Volume fraction] 38.5 % Normal 34.0 - 46.0 % AO Workflow SS Hemoglobin (Bld) [Mass/Vol] 13.1 G/dL Normal 12.0 - 16.0 G/dL AO Workflow SS Lymphocytes (Bld) [#/Vol] 0.4 103/mcL Low 0.9 - 4.3 10^3/mcL AO Workflow SS Lymphocytes/100 WBC (Bld) 5.1 % Low 20.0 - 40.0 % AO Workflow SS MCH (RBC) [Entitic mass] 29.0 pg Normal 27.0 - 33.0 pg AO Workflow SS MCHC 33.9 G/dL Normal 32.0 - 36.0 G/dL AO Workflow SS MCV (RBC) [Entitic vol] 85.5 fL Normal 80.0 - 99.0 fL AO Workflow SS Monocytes (Bld) [#/Vol] 0.3 103/mcL Normal 0.1 - 1.4 10^3/mcL AO Workflow SS Monocytes/100 WBC (Bld) 3.5 % Normal 2.0 - 13.0 % AO Workflow SS Neutrophils (Bld) [#/Vol] 7.6 103/mcL Normal 2.3 - 8.1 10^3/mcL AO Workflow SS Neutrophils/100 WBC (Bld) 91.0 % High 50.0 - 75.0 % AO Workflow SS Platelet mean volume (Bld) [Entitic vol] 8.6 fL Normal 6.6 - 10.5 fL AO Workflow SS Platelets (Bld) [#/Vol] 188 103/mcL Normal 150 - 450 10^3/mcL AO Workflow SS Potassium [Moles/Vol] 4.7 mmol/L Normal 3.5 - 5.1 mmol/L AO ADM SS Protein [Mass/Vol] 7.4 G/dL Normal 6.4 - 8.2 G/dL AO ADM SS RBC (Bld) [#/Vol] 4.50 106/mcL Normal 4.10 - 5.3 0 10^6/mcL AO Workflow SS Sodium [Moles/Vol] 131 mmol/L Low 136 - 145 mmol/L AO ADM SS TSH Qn 3.90 m[IU]/L High 0.36 - 3.74 mcIU/mL AO ADM SS Urea nitrogen [Mass/Vol] 10 mg/dL Normal 7 - 18 mg/dL AO ADM SS Urea nitrogen/Creatinine [Mass ratio] 11 ratio Normal 7 - 27 ratio AO ADM SS WBC (Bld) [#/Vol] 8.4 103/mcL Normal 4.5 - 10.8 10^3/mcL AO Workflow SS TSHRon 03-18-2025 TSH Qn 3.90 m[IU]/L High 0.36-3.74 [facility] Comment on above: Performed By: #### MOSES JENKINS #### [id number] [place], [place] [address] VIDHon 03-18-2025 Vit. D 25-Hydroxy 69.6 ng/mL Normal [facility] Comment on above: Result Comment: Inte rpretive Values Based on Total 25(OH) Vitamin D: Deficient <20 ng/mL Insufficient 20 - <30 ng/mL Sufficient 30-100 ng/mL Performed By: #### A MOSES CARRILLO #### Zhang [address] [address] [place] MAMMOGRAM SCREENING BILAT ERAL W/TOMOon 02-26-2025 [place] MAMMOGRAM SCREENING BILATERAL W/WONG ORIGINAL FROM: Z[address]ANG [address] [address] PROCEDURE FOR: MATT CASTILLO [address] [place] [address] Home: PID#: [id number] Exam#: [id number] : 1945 Age: 79 TO: DEREK GUERRIER [address] [place] [address] Fax: NO FAX EXAMINATION: SCREENING DIGITAL BILATERAL MAMMOGRAM WITH TOMOSYNTHESIS, 02/10/2025 8:51 am TECHNIQUE: Screening mammography of the bilateral breasts was performed with tomosynthesis. 2D standard and 3D tomosynthesis combination imaging performed through both breasts in the MLO and CC projection. Computer aided detection was utilized in the interpretation of this exam. COMPARISON: 01/21/2024, 01/19/2023 HISTORY: Breast cancer screening. FINDINGS: BREAST DENSITY: There are scattered areas of fibroglandular density. There are benign appearing calcifications in both breasts. There are no significant masses or calcifications. IMPRESSION: No mammographic evidence of malignancy. Continued screening with annual mammograms is recommended. Maximiliano Mahoneyzick risk calculations, generated with the history provided, report this patient's lifetime risk for developing breast cancer at 1.9%. Based on this assessment tool, if the patient's calculated lifetime risk is below 20%, then the patient is considered at average risk for developing breast cancer. If the patient's calculated lifetime risk is at or above 20%, then the patient is considered high risk for developing breast cancer and may be a candidate for supplemental breast MRI screening in addition to annual mammographic screening per the [employer]. BIRADS: BI-RADS: 2: Benign RECALL: 1 year screening RECALL TYPE: mammo LETTER SENT: Normal BI-RADS 1 and 2 Interpreted by: Sebastian Iyer MD Preliminary Report By: Sebastian Iyer MD Electronically signed By Sebastian Iyer MD Dictated Date: 02/26/2025 11:46:35 AM Prelim Date: 02/26/2025 12:15:15 PM Sign Date: 02/26/2025 12:15:15 PM Ordering Provider: DEREK GUERRIER [employer] Machine Operator: AALIYAH REDMOND RTStevenson)(M) RDMS letter sent: Normal BI-RADS 1 and 2 Mammogram BI-RADS: 2 Benign Normal [facility] Final Surgical Pathology Rep gabriel 01-27-2025 Final Surgical Pathology Report . Pathology Reports Accession: Collected Date/Time: Received Date/Time: Pathologist: [id number] 01/22/2025 13:13 EDT 01/26/2025 09:32 EDT BRYN ALEGRE MD Final Surgical Pathology Report DIAGNOSIS: VAGINAL MUCOSAL: - VAGINAL MUCOSA AND SUBMUCOSAL TISSUE IDENTIFIED. NEGATIVE FOR DYSPLASIA OR MALIGNANCY CLINICAL INFORMATION: Procedure: ANTERIOR REPAIR AND CYSTOSCOPY Preoperative diagnosis: CYSTOCELE Postoperative diagnosis: CYSTOCELE SPECIMEN: A ANTERIOR VAGINAL EPITHELIUM GROSS DESCRIPTION: All parts labelled with patient name and [id number] Received in formalin and designated anterior vaginal epithelium are fragments of pink-goddard tissue with an aggregate measurement of 6.0 x 4.0 x 0.6 cm. Cut section has a pink-goddard appearance. Marble Cutter Operator sections are submitted in cassette A1. RS-1 Corina Atwood, Pathologists ' Business Team Leader (ASCP) Performed by Corina Atwood MICROSCOPIC DESCRIPTION: The microscopic examination is performed, except in the case of Gross Only. Verified by Pathology Report verified by [facility] BRYN ALEGRE Sign out Date: 01/27/2025 15:05 Performing Lab: [facility], [address] [place] [address] Pathology Dept Disclaimer If ancillary studies were utilized, the following Laboratory Developed Test (LDT) disclaimer will apply: Under CLIA requirements, [facility] Pathology Laboratory is qualified to perform high complexity testing. For all ancillary stains, positive and negative controls stain appropriately. Performance characteristics of immunohistochemical and chromogenic in-situ hybridization tests have been determined by [facility] Pathology Laboratory. These tests are used for clinical purposes, They should not be regarded as investigational or for research. Normal [facility] .Auto Diffon 01-23-2025 Basophil, Absolute 0.0 10 3/mcL Normal 0.0-0.3 [facility] Comment on above: Performed By: #### A DIFF, GFR, ANEU, CBC, BMP ####[address] [address] Basophils/100 WBC (Bld) 0.1 % Normal 0.0-2.5 [facility] Comment on above: Performed By: #### A DIFF, GFR, ANEU, CBC, BMP ####[address] [address] Eosinophil, Absolute 0.0 10 3/mcL Normal 0.0-0.7 [facility] Comment on above: Performed By: #### A DIFF, GFR, ANEU, CBC, BMP ####[address] [address] Eosinophils/100 WBC (Bld) 0.0 % Normal 0.0-6.0 [facility] Comment on above: Performed By: #### A DIFF, GFR, ANEU, CBC, BMP ####[address] [address] Lymphocyte, Absolute 0.4 10 3/mcL Low 0.9-4.3 [facility] Comment on above: Performed By: #### A DIFF, GFR, ANEU, CBC, BMP ####[address] [address] Lymphocytes/100 WBC (Bld) 4.6 % Low 20.0-40.0 [facility] Comment on above: Performed By: #### A DIFF, GFR, ANEU, CBC, BMP ####[address] [address] Monocyte, Absolute 0.4 10 3/mcL Normal 0.1-1.4 [facility] Comment on above: Performed By: #### A DIFF, GFR, ANEU, CBC, BMP ####[address] [address] Monocytes/100 WBC (Bld) 4.2 % Normal 2.0-13.0 [facility] Comment on above: Performed By: #### A DIFF, GFR, ANEU, CBC, BMP ####[address] [address] Neutrophils/100 WBC (Bld) 91.1 % High 50.0-75.0 [facility] Comment on above: Performed By: #### A DIFF, GFR, ANEU, CBC, BMP ####[address] [address] .GFRon 01-23-2025 Estimated Glomerular Filtration Rate 75 ml/min/1.73sqm Normal [facility] Comment on above: Result Comment: Stages of Chronic Kidney Disease (CKD) Stage Description eGFR(ml/min/1.73 sq.m.) CKD 1 Normal kidney function or >=90 normal kindney function with possible kidney damage (ex. Proteinuria) CKD 2 Kidney damage with mild loss 60-89 of kidney function CKD 3a Mild to moderate loss of kidney 45-59 function CKD 3b Moderate to severe loss of 30-44 of kindey function CKD 4 Severe loss of kidney function 15-29 CKD 5 Kidney failure <15 Note: (go live 2024) the eGFR calculation was updated to the 2020 CKD-EPI creatinine equation without a race factor to calculate the eGFR results. Performed By: #### A MOSES CARRILLO #### [address] [address] .NEUABSon 01-23-2025 Neutrophil, Absolute 8.8 10 3/mcL High 2.3-8.1 [facility] Comment on above: Performed By: #### A DIFF, GFR, ANEU, CBC, BMP ####[address] [address] BMPon 01-23-2025 BUN/Creatinine Ratio 19 ratio Normal 7-27 [facility] Comment on above: Performed By: #### A DIFF, GFR, ANEU, CBC, BMP ####[address] [address] Calcium [Mass/Vol] 8.7 mg/dL Normal 8.4-10.2 [facility] Comment on above: Performed By: #### A DIFF, GFR, ANEU, CBC, BMP ####[address] [address] Chloride [Moles/Vol] 99 mmol/L Normal 98-107 [facility] Comment on above: Performed By: #### A DIFF, GFR, ANEU, CBC, BMP ####[address] [address] CO2 [Moles/Vol] 28 mmol/L Normal 23-31 [facility] Comment on above: Performed By: #### A DIFF, GFR, ANEU, CBC, BMP ####[address] [address] Creatinine [Mass/Vol] 0.80 mg/dL Normal 0.51-0.95 [facility] Comment on above: Performed By: #### A DIFF, GFR, ANEU, CBC, BMP ####[address] [address] Electrolyte Balance 6.0 mEq/L Normal 4.0-15.0 [facility] Comment on above: Performed By: #### A DIFF, GFR, ANEU, CBC, BMP ####[address] [address] Glucose [Mass/Vol] 117 mg/dL High 83-110 [facility] Comment on above: Performed By: #### A DIFF, GFR, ANEU, CBC, BMP ####[address] [address] Potassium [Moles/Vol] 4.6 mmol/L Normal 3.5-5.1 [facility] Comment on above: Performed By: #### A DIFF, GFR, ANEU, CBC, BMP ####[address] [address] Sodium [Moles/Vol] 133 mmol/L Low 136-145 [facility] Comment on above: Performed By: #### A DIFF, GFR, ANEU, CBC, BMP ####[address] [address] Urea nitrogen [Mass/Vol] 15 mg/dL Normal 7-18 [facility] Comment on above: Performed By: #### A DIFF, GFR, ANEU, CBC, BMP ####[id number] CBCon 01-23-2025 Erythrocyte distribution width (RBC) [Ratio] 14.3 % Normal 11.5-15.5 [facility] Comment on above: Performed By: #### A DIFF, GFR, ANEU, CBC, BMP ####[place] [address] Hematocrit (Bld) [Volume fraction] 35.4 % Normal 34.0-46.0 [facility] Comment on above: Performed By: #### A DIFF, GFR, ANEU, CBC, BMP ####[place] [address] Hgb 12.1 G/dL Normal 12.0-16.0 [facility] Comment on above: Performed By: #### A DIFF, GFR, ANEU, CBC, BMP ####[place] [address] MCH (RBC) [Entitic mass] 28.9 pg Normal 27.0-33.0 [facility] Comment on above: Performed By: #### A DIFF, GFR, ANEU, CBC, BMP ####[place] [address] MCHC 34.2 G/dL Normal 32.0-36.0 [facility] Comment on above: Performed By: #### A DIFF, GFR, ANEU, CBC, BMP ####[place] [address] MCV (RBC) [Entitic vol] 84.5 fL Normal 80.0-99.0 [facility] Comment on above: Performed By: #### A DIFF, GFR, ANEU, CBC, BMP ####[place] [id number] Platelet 187 10 3/mcL Normal 150-450 [facility] Comment on above: Performed By: #### A DIFF, GFR, ANEU, CBC, BMP ####[id number] [place] [address] Platelet mean volume (Bld) [Entitic vol] 8.1 fL Normal 6.6-10.5 [facility] Comment on above: Performed By: #### A DIFF, GFR, ANEU, CBC, BMP ####[place] [address] [place], [place] [address] RBC 4.18 10 6/mcL Normal 4.10-5.30 [facility] Comment on above: Performed By: #### A DIFF, GFR, ANEU, CBC, BMP ####[address] [place], [place] [address] WBC 9.7 10 3/mcL Normal 4.5-10.8 [facility] Comment on above: Performed By: #### A DIFF, GFR, ANEU, CBC, BMP ####[address] [id number] [place], [place] [address] LABORATORYOrdered By: SYSTEM SYSTEM on 01-23-2025 Basophils (Bld) [#/Vol] 0.0 103/mcL Normal 0.0 - 0.3 10^3/mcL AO Workflow SS Basophils/100 WBC (Bld) 0.1 % Normal 0.0 - 2.5 % AO Workflow SS Calcium [Mass/Vol] 8.7 mg/dL Normal 8.4 - 10. 2 mg/dL AO ADM SS Chloride [Moles/Vol] 99 mmol/L Normal 98 - 10 7 mmol/L AO ADM SS CO2 [Moles/Vol] 28 mmol/L Normal 23 - 31 mmol/L AO ADM SS Creatinine [Mass/Vol] 0.80 mg/dL Normal 0.51 - 0.95 mg/dL AO ADM SS Electrolyte Balance 6.0 mEq/L Normal 4.0 - 15 .0 mEq/L AO ADM SS Eosinophil, Absolute 0.0 103/mcL Normal 0.0 - 0 .7 10^3/mcL AO Workflow SS Eosinophils/100 WBC (Bld) 0.0 % Normal 0.0 - 6.0 % AO Workflow SS Erythrocyte distribution width (RBC) [Ratio] 14.3 % Normal 11.5 - 15.5 % AO Workflow SS Estimated Glomerular Filtration Rate 75 ml/min/1.73sqm Invalid Interpretation Code AO Chemistry S Comment on above: Interpretive Data: Stages of Chronic Kidney Disease (CKD) Stage Description eGFR(ml/min/1.73 sq.m.) CKD 1 Normal kidney function or >=90 normal kindney function with possible kidney damage (ex. Proteinuria) CKD 2 Kidney damage with mild loss 60-89 of kidney function CKD 3a Mild to moderate loss of kidney 45-59 function CKD 3b Moderate to severe loss of 30-44 of kindey function CKD 4 Severe loss of kidney function 15-29 CKD 5 Kidney failure <15 Note: (go live 2024) the eGFR calculation was updated to the 2020 CKD-EPI creatinine equation without a race factor to calculate the eGFR results. Glucose [Mass/Vol] 117 mg/dL High 83 - 110 mg/dL AO ADM SS Hematocrit (Bld) [Volume fraction] 35.4 % Normal 34.0 - 46.0 % AO Workflow SS Hemoglobin (Bld) [Mass/Vol] 12.1 G/dL Normal 12.0 - 16.0 G/dL AO Workflow SS Lymphocytes (Bld) [#/Vol] 0.4 103/mcL Low 0.9 - 4.3 10^3/mcL AO Workflow SS Lymphocytes/100 WBC (Bld) 4.6 % Low 20.0 - 40.0 % AO Workflow SS MCH (RBC) [Entitic mass] 28.9 pg Normal 27.0 - 33.0 pg AO Workflow SS MCHC 34.2 G/dL Normal 32.0 - 36.0 G/dL AO Workflow SS MCV (RBC) [Entitic vol] 84.5 fL Normal 80.0 - 99.0 fL AO Workflow SS Monocytes (Bld) [#/Vol] 0.4 103/mcL Normal 0.1 - 1.4 10^3/mcL AO Workflow SS Monocytes/100 WBC (Bld) 4.2 % Normal 2.0 - 13.0 % AO Workflow SS Neutrophils (Bld) [#/Vol] 8.8 103/mcL High 2.3 - 8.1 10^3/mcL AO Workflow SS Neutrophils/100 WBC (Bld) 91.1 % High 50.0 - 75.0 % AO Workflow SS Platelet mean volume (Bld) [Entitic vol] 8.1 fL Normal 6.6 - 10.5 fL AO Workflow SS Platelets (Bld) [#/Vol] 187 103/mcL Normal 150 - 450 10^3/mcL AO Workflow SS Potassium [Moles/Vol] 4.6 mmol/L Normal 3.5 - 5.1 mmol/L AO ADM SS RBC (Bld) [#/Vol] 4.18 106/mcL Normal 4.10 - 5.3 0 10^6/mcL AO Workflow SS Sodium [Moles/Vol] 133 mmol/L Low 136 - 145 mmol/L AO ADM SS Urea nitrogen [Mass/Vol] 15 mg/dL Normal 7 - 18 mg/dL AO ADM SS Urea nitrogen/Creatinine [Mass ratio] 19 ratio Normal 7 - 27 ratio AO ADM SS WBC (Bld) [#/Vol] 9.7 103/mcL Normal 4.5 - 10.8 10^3/mcL AO Workflow SS .GFRon 01-22-2025 Estimated Glomerular Filtration Rate 68 ml/min/1.73sqm Normal [facility] Comment on above: Result Comment: Stages of Chronic Kidney Disease (CKD) Stage Description eGFR(ml/min/1.73 sq.m.) CKD 1 Normal kidney function or >=90 normal kindney function with possible kidney damage (ex. Proteinuria) CKD 2 Kidney damage with mild loss 60-89 of kidney function CKD 3a Mild to moderate loss of kidney 45-59 function CKD 3b Moderate to severe loss of 30-44 of kindey function CKD 4 Severe loss of kidney function 15-29 CKD 5 Kidney failure <15 Note: (go live 2024) the eGFR calculation was updated to the 2020 CKD-EPI creatinine equation without a race factor to calculate the eGFR results. Performed By: #### A MOSES CARRILLO #### [id number] [place], [place] [address] ABO/Rh (Gel)on 01-22-2025 ABO/Rh Interp Positive Invalid Interpretation Code [facility] Comment on above: Performed By: #### A MOSES CARRILLO #### [address] [place], [place] [address] ABS (Gel)on 01-22-2025 ABSC Interp (Gel) Negative Normal [facility] Comment on above: Performed By: #### A MOSES CARRILLO #### [address] [place], [place] [address] BMPon 01-22-2025 BUN/Creatinine Ratio 18 ratio Normal 7-27 [facility] Comment on above: Performed By: #### A OLY CARRILLOGEL #### [address] [address] Calcium [Mass/Vol] 8.6 mg/dL Normal 8.4-10.2 [facility] Comment on above: Performed By: #### A GERARDO ABSGEL #### [address] [address] Chloride [Moles/Vol] 101 mmol/L Normal 98-107 [facility] Comment on above: Performed By: #### A GERARDO ABSGEL #### [address] [address] CO2 [Moles/Vol] 29 mmol/L Normal 23-31 [facility] Comment on above: Performed By: #### A GERARDO ABSGEL #### [address] [address] Creatinine [Mass/Vol] 0.87 mg/dL Normal 0.51-0.95 [facility] Comment on above: Performed By: #### A GERARDO ABSGEL #### [address] [address] Electrolyte Balance 8.0 mEq/L Normal 4.0-15.0 [facility] Comment on above: Performed By: #### A GERARDO ABSGEL #### [address] [address] Glucose [Mass/Vol] 91 mg/dL Normal 83-110 [facility] Comment on above: Performed By: #### A GERARDO ABSGEL #### [address] [address] Potassium [Moles/Vol] 4.1 mmol/L Normal 3.5-5.1 [facility] Comment on above: Performed By: #### Nayan CARRILLO ABSGEL #### [address] [address] Sodium [Moles/Vol] 138 mmol/L Normal 136-145 [facility] Comment on above: Performed By: #### A MOSES CARRILLO #### [facility] [address] [place], [place] [address] Urea nitrogen [Mass/Vol] 16 mg/dL Normal 7-18 [facility] Comment on above: Performed By: #### A MOSES CARRILLO #### [facility] [address] [place], [place] [address] LABORATORYOrdered By: Rachna Hatfield on 01-22-2025 Glucose [Mass/Vol] 94 mg/dL Normal 82 - 115 mg/dL [facility] Work Phone: LABORATORYOrdered By: SYSTEM SYSTEM on 01-22-2025 Calcium [Mass/Vol] 8.6 mg/dL Normal 8.4 - 10. 2 mg/dL AO ADM SS Chloride [Moles/Vol] 101 mmol/L Normal 98 - 10 7 mmol/L AO ADM SS CO2 [Moles/Vol] 29 mmol/L Normal 23 - 31 mmol/L AO ADM SS Creatinine [Mass/Vol] 0.87 mg/dL Normal 0.51 - 0.95 mg/dL AO ADM SS Electrolyte Balance 8.0 mEq/L Normal 4.0 - 15 .0 mEq/L AO ADM SS Estimated Glomerular Filtration Rate 68 ml/min/1.73sqm Invalid Interpretation Code AO Chemistry S Comment on above: Interpretive Data: Stages of Chronic Kidney Disease (CKD) Stage Description eGFR(ml/min/1.73 sq.m.) CKD 1 Normal kidney function or >=90 normal kindney function with possible kidney damage (ex. Proteinuria) CKD 2 Kidney damage with mild loss 60-89 of kidney function CKD 3a Mild to moderate loss of kidney 45-59 function CKD 3b Moderate to severe loss of 30-44 of kindey function CKD 4 Severe loss of kidney function 15-29 CKD 5 Kidney failure <15 Note: (go live 2024) the eGFR calculation was updated to the 2020 CKD-EPI creatinine equation without a race factor to calculate the eGFR results. Glucose [Mass/Vol] 91 mg/dL Normal 83 - 110 mg/dL AO ADM SS Potassium [Moles/Vol] 4.1 mmol/L Normal 3.5 - 5.1 mmol/L AO ADM SS Sodium [Moles/Vol] 138 mmol/L Normal 136 - 145 mmol/L AO ADM SS Urea nitrogen [Mass/Vol] 16 mg/dL Normal 7 - 18 mg/dL AO ADM SS Urea nitrogen/Creatinine [Mass ratio] 18 ratio Normal 7 - 27 ratio AO ADM SS LABORATORYOrdered By: Griffin Vogt on 01-22-2025 ABO and Rh group Nom (Bld) Blood group A Rh(D) positive Invalid Interpretation Code AO BB Auto SS Blood group antibody screen Ql Negative ABSC (01/22/25 10:41 AM) Normal AO BB Auto SS No Panel Informationon 01-22 Culture Urine >100,000 cfu/ml Kleb siella oxytoca Raoultella ornithinolytica SONNY to follow [facility] Work Phone: XR CHEST 2 VIEWSon XR CHEST 2 VIEWS ORIGINAL EXAMINATION: TWO XRAY VIEWS OF THE CHEST01/09/2025 12:29 pm XR Chest two views COMPARISON: 06/02/2015 HISTORY: ORDERING SYSTEM PROVIDED HISTORY: Reason for Exam: pre op, FINDINGS: No suspicious nodule, acute infiltrate, consolidation,mass, pneumothorax, pleural fluid, or vascular congestion is seen. Heart size and mediastinal contours are within normal limits for age and projection. No acute skeletal abnormality. IMPRESSION: No acute cardiopulmonary process. Interpreted by: King Kent MD Preliminary Report By: King Kent MD Electronically signed By King Kent MD Dictated Date: 01/12/2025 10:56:21 AM Prelim Date: 01/12/2025 10:56:49 AM Sign Date: 01/12/2025 10:56:49 AM Ordering Provider: SEBASTIAN GONZALEZ Normal [facility] .Auto Diffon 01-09-2025 Basophil, Absolute 0.0 10 3/mcL Normal 0.0-0.3 [facility] Comment on above: Performed By: #### C EVANS ELIAS ANEU, ADIFF, ABSGEL ####[facility] [place], [place] [address] Basophils/100 WBC (Bld) 0.5 % Normal 0.0-2.5 [facility] Comment on above: Performed By: #### C BC, ABOGEL, ANEU, ADIFF, ABSGEL ####[address] [place], [place] [address] Eosinophil, Absolute 0.0 10 3/mcL Normal 0.0-0.7 [facility] Comment on above: Performed By: #### C BC, ABOGEL, ANEU, ADIFF, ABSGEL ####[address] [place], [place] [address] Eosinophils/100 WBC (Bld) 0.5 % Normal 0.0-6.0 [facility] Comment on above: Performed By: #### C BC, ABOGEL, ANEU, ADIFF, ABSGEL ####[address] [place], [place] [address] Lymphocyte, Absolute 0.8 10 3/mcL Low 0.9-4.3 [facility] Comment on above: Performed By: #### C BC, ABOGEL, ANEU, ADIFF, ABSGEL ####[address] [place], [place] [address] Lymphocytes/100 WBC (Bld) 13.2 % Low 20.0-40.0 [facility] Comment on above: Performed By: #### C BC, ABOGEL, ANEU, ADIFF, ABSGEL ####[address] [place], [place] [address] Monocyte, Absolute 0.5 10 3/mcL Normal 0.1-1.4 [facility] Comment on above: Performed By: #### C BC, ABOGEL, ANEU, ADIFF, ABSGEL ####[address] [place], [place] [address] Monocytes/100 WBC (Bld) 8.5 % Normal 2.0-13.0 [facility] Comment on above: Performed By: #### C BC, ABOGEL, ANEU, ADIFF, ABSGEL ####[address] [place], [place] [address] Neutrophils/100 WBC (Bld) 77.3 % High 50.0-75.0 [facility] Comment on above: Performed By: #### C BC, ABOGEL, ANEU, ADIFF, ABSGEL ####[place] [address] [place], [place] [address] .NEUABSon 01-09-2025 Neutrophil, Absolute 4.4 10 3/mcL Normal 2.3-8.1 [facility] Comment on above: Performed By: #### C BC, ABOGEL, ANEU, ADIFF, ABSGEL ####[address] [place] [id number] ABO/Rh (Gel)on 01-09-2025 ABO/Rh Interp Positive Invalid Interpretation Code [facility] Comment on above: Performed By: #### C BC, ABOGEL, ANEU, ADIFF, ABSGEL ####[address] [place] [address] ABS (Gel)on 01-09-2025 ABSC Interp (Gel) Negative Normal [facility] Comment on above: Performed By: #### C BC, ABOGEL, ANEU, ADIFF, ABSGEL ####[place] [id number] [place] [address] CBCon 01-09-2025 Erythrocyte distribution width (RBC) [Ratio] 14.3 % Normal 11.5-15.5 [facility] Comment on above: Order Comment: Pre-A dmission Testing Performed By: #### C BC, ABOGEL, ANEU, ADIFF, ABSGEL ####[place] [address] [place], [place] [address] Hematocrit (Bld) [Volume fraction] 37.0 % Normal 34.0-46.0 [facility] Comment on above: Order Comment: Pre-A dmission Testing Performed By: #### C BC, ABOGEL, ANEU, ADIFF, ABSGEL ####[place] [address] [place], [place] [address] Hgb 12.8 G/dL Normal 12.0-16.0 [facility] Comment on above: Order Comment: Pre-A dmission Testing Performed By: #### C BC, ABOGEL, ANEU, ADIFF, ABSGEL ####[place] [address] [place] [phone] MCH (RBC) [Entitic mass] 29.1 pg Normal 27.0-33.0 [facility] Comment on above: Order Comment: Pre-A dmission Testing Performed By: #### C BC, ABOGEL, ANEU, ADIFF, ABSGEL ####[place] [address] [place], [place] [address] MCHC 34.4 G/dL Normal 32.0-36.0 [facility] Comment on above: Order Comment: Pre-A dmission Testing Performed By: #### C BC, ABOGEL, ANEU, ADIFF, ABSGEL ####[place] [address] [place], [place] [address] MCV (RBC) [Entitic vol] 84.5 fL Normal 80.0-99.0 [facility] Comment on above: Order Comment: Pre-A dmission Testing Performed By: #### C BC, ABOGEL, ANEU, ADIFF, ABSGEL ####[place] [address] [place], [place] [address] Platelet 179 10 3/mcL Normal 150-450 [facility] Comment on above: Order Comment: Pre-A dmission Testing Performed By: #### C BC, ABOGEL, ANEU, ADIFF, ABSGEL ####[place] [address] [place], [place] [address] Platelet mean volume (Bld) [Entitic vol] 8.5 fL Normal 6.6-10.5 [facility] Comment on above: Order Comment: Pre-A dmission Testing Performed By: #### C BC, ABOGEL, ANEU, ADIFF, ABSGEL ####[place] [address] [place], [place] [address] RBC 4.38 10 6/mcL Normal 4.10-5.30 [facility] Comment on above: Order Comment: Pre-A dmission Testing Performed By: #### C BC, ABOGEL, ANEU, ADIFF, ABSGEL ####[place] [address] [place], [place] [address] WBC 5.7 10 3/mcL Normal 4.5-10.8 [facility] Comment on above: Order Comment: Pre-A dmission Testing Performed By: #### C BC, ABOGEL, ANEU, ADIFF, ABSGEL ####[address] [place], [place] [address] LABORATORYOrdered By: Lei Oro on 01-09-2025 ABO and Rh group Nom (Bld) Blood group A Rh(D) positive Invalid Interpretation Code AO BB Auto SS Blood group antibody screen Ql Negative ABSC (01/09/25 11:47 AM) Normal AO BB Auto SS LABORATORYOrdered By: SYSTEM SYSTEM on 01-09-2025 Basophils (Bld) [#/Vol] 0.0 103/mcL Normal 0.0 - 0.3 10^3/mcL AO Workflow SS Basophils/100 WBC (Bld) 0.5 % Normal 0.0 - 2.5 % AO Workflow SS Eosinophil, Absolute 0.0 103/mcL Normal 0.0 - 0 .7 10^3/mcL AO Workflow SS Eosinophils/100 WBC (Bld) 0.5 % Normal 0.0 - 6.0 % AO Workflow SS Erythrocyte distribution width (RBC) [Ratio] 14.3 % Normal 11.5 - 15.5 % AO Workflow SS Hematocrit (Bld) [Volume fraction] 37.0 % Normal 34.0 - 46.0 % AO Workflow SS Hemoglobin (Bld) [Mass/Vol] 12.8 G/dL Normal 12.0 - 16.0 G/dL AO Workflow SS Lymphocytes (Bld) [#/Vol] 0.8 103/mcL Low 0.9 - 4.3 10^3/mcL AO Workflow SS Lymphocytes/100 WBC (Bld) 13.2 % Low 20.0 - 40.0 % AO Workflow SS MCH (RBC) [Entitic mass] 29.1 pg Normal 27.0 - 33.0 pg AO Workflow SS MCHC 34.4 G/dL Normal 32.0 - 36.0 G/dL AO Workflow SS MCV (RBC) [Entitic vol] 84.5 fL Normal 80.0 - 99.0 fL AO Workflow SS Monocytes (Bld) [#/Vol] 0.5 103/mcL Normal 0.1 - 1.4 10^3/mcL AO Workflow SS Monocytes/100 WBC (Bld) 8.5 % Normal 2.0 - 13.0 % AO Workflow SS Neutrophils (Bld) [#/Vol] 4.4 103/mcL Normal 2.3 - 8.1 10^3/mcL AO Workflow SS Neutrophils/100 WBC (Bld) 77.3 % High 50.0 - 75.0 % AO Workflow SS Platelet mean volume (Bld) [Entitic vol] 8.5 fL Normal 6.6 - 10.5 fL AO Workflow SS Platelets (Bld) [#/Vol] 179 103/mcL Normal 150 - 450 10^3/mcL AO Workflow SS RBC (Bld) [#/Vol] 4.38 106/mcL Normal 4.10 - 5.3 0 10^6/mcL AO Workflow SS WBC (Bld) [#/Vol] 5.7 103/mcL Normal 4.5 - 10.8 10^3/mcL AO Workflow SS Microalb:Creat Ratio,Random URon 01-08-2025 MALB:CREAT 30.6 mg/g CRE Normal [facility] Comment on above: Result Comment: AMENDED REPORT 01/08/25 0825 MALB:CREAT previously reported as: 305.9 mg/g CRE Performed By: #### L 500.4050, L500.4100, L502.0250 ####[facility] [address] [place], [place], [address] .GFRon 11-26-2024 Estimated Glomerular Filtration Rate 73 ml/min/1.73sqm Normal [facility] Comment on above: Result Comment: Stages of Chronic Kidney Disease (CKD) Stage Description eGFR(ml/min/1.73 sq.m.) CKD 1 Normal kidney function or >=90 normal kindney function with possible kidney damage (ex. Proteinuria) CKD 2 Kidney damage with mild loss 60-89 of kidney function CKD 3a Mild to moderate loss of kidney 45-59 function CKD 3b Moderate to severe loss of 30-44 of kindey function CKD 4 Severe loss of kidney function 15-29 CKD 5 Kidney failure <15 Note: (go live 2024) the eGFR calculation was updated to the 2020 CKD-EPI creatinine equation without a race factor to calculate the eGFR results. Performed By: #### A MOSES CARRILLO #### [address] [address] LABORATORYOrdered By: Colette Shook on 11-26-2024 Albumin DL <= 20 mg/L (U) [Mass/Vol] 16.9 mg/L Invalid Interpretation Code AO ADM SS Albumin/Creatinine DL <= 20 mg/L (U) [Mass ratio] 77 mg/G High 0 - 30 mg/G AO Chemistry S Creatinine (U) [Mass/Vol] 21.9 mg/dL Low 29.0 - 226.0 mg/dL AO ADM SS LABORATORYOrdered By: Shira Bowers on 11-26-2024 Appearance (U) Cloudy *ABN* (11/26/24 10:48 AM) Invalid Interpretation Code Clear AO Auto Urine SS Bacteria LM.HPF (Urine sed) [#/Area] Trace /HPF Invalid Interpretation Code Negative AO Auto Urine SS Bilirubin Ql (U) Negative (11/26/24 10:48 AM) Normal Negative AO Auto Urine SS Color (U) Yellow (11/26/24 10:48 AM) Normal AO Auto Urine SS Crystals.amorphous LM.HPF (Urine sed) [#/Area] 2 /[HPF] Normal AO Auto Urine SS Glucose Test strip (U) [Mass/Vol] Negative Normal Negative AO Auto Urine SS Hemoglobin Auto test strip (U) [Mass/Vol] Negative (11/26/24 10:48 AM) Normal Negative AO Auto Urine SS Ketones Ql (U) Negative Normal Negative AO Auto Urine SS UA Leuk Est Small *ABN* (11/26/24 10:48 AM) Invalid Interpretation Code Negative AO Auto Urine SS UA Nitrite Negative (11/26/24 10:48 AM) Normal Negative AO Auto Urine SS UA pH 8.5 *ABN* (11/26/24 10:48 AM) Invalid Interpretation Code 5.0 - 8.0 AO Auto Urine SS UA Protein Negative Normal Negative AO Auto Urine SS UA RBC 0-2 /HPF Normal 0-2 AO Auto Urine SS UA Spec Grav <=1.005 *ABN* (11/26/24 10:48 AM) Invalid Interpretation Code 1.015-1.025 AO Auto Urine SS UA Specimen Type Void (11/26/24 10:48 AM) Normal AO Auto Urine SS UA Squam Epithelial 0-2 /HPF Normal 0-20 AO Au to Urine SS UA Urobilinogen 0.2 E.U./dL Normal 0.2-1.0 AO Auto Urine SS WBC LM.HPF (Urine sed) [#/Area] 3-5 /HPF Normal 0-5 AO Auto Urine SS LABORATORYOrdered By: SYSTEM SYSTEM on 11-26-2024 Protein (U) [Mass/Vol] 13 mg/dL Invalid Interpretation Code AO ADM SS Sodium (U) [Moles/Vol] 35 mmol/L Invalid Interpretation Code AO ADM SS Albumin BCP dye [Mass/Vol] 4.4 G/dL Normal 3.4 - 4.8 G/dL AO ADM SS Calcium [Mass/Vol] 9.4 mg/dL Normal 8.4 - 10. 2 mg/dL AO ADM SS Chloride [Moles/Vol] 95 mmol/L Low 98 - 10 7 mmol/L AO ADM SS CO2 [Moles/Vol] 31 mmol/L Normal 23 - 31 mmol/L AO ADM SS Creatinine [Mass/Vol] 0.82 mg/dL Normal 0.51 - 0.95 mg/dL AO ADM SS Electrolyte Balance 6.0 mEq/L Normal 4.0 - 15 .0 mEq/L AO ADM SS Estimated Glomerular Filtration Rate 73 ml/min/1.73sqm Invalid Interpretation Code AO Chemistry S Comment on above: Interpretive Data: Stages of Chronic Kidney Disease (CKD) Stage Description eGFR(ml/min/1.73 sq.m.) CKD 1 Normal kidney function or >=90 normal kindney function with possible kidney damage (ex. Proteinuria) CKD 2 Kidney damage with mild loss 60-89 of kidney function CKD 3a Mild to moderate loss of kidney 45-59 function CKD 3b Moderate to severe loss of 30-44 of kindey function CKD 4 Severe loss of kidney function 15-29 CKD 5 Kidney failure <15 Note: (go live 2024) the eGFR calculation was updated to the 2020 CKD-EPI creatinine equation without a race factor to calculate the eGFR results. Glucose [Mass/Vol] 100 mg/dL Normal 83 - 110 mg/dL AO ADM SS Phosphate [Mass/Vol] 3.9 mg/dL Normal 2.3 - 4 .1 mg/dL AO ADM SS Potassium [Moles/Vol] 4.2 mmol/L Normal 3.5 - 5.1 mmol/L AO ADM SS Sodium [Moles/Vol] 132 mmol/L Low 136 - 145 mmol/L AO ADM SS Urea nitrogen [Mass/Vol] 13 mg/dL Normal 7 - 18 mg/dL AO ADM SS Urea nitrogen/Creatinine [Mass ratio] 16 ratio Normal ratio AO ADM SS MALBRon 11-26-2024 U Creatinine 21.9 mg/dL Low 29.0-226.0 [facility] Comment on above: Performed By: #### P RUR, UA, MALBR, NAUR, UAMIC #### [address] [address] U Microalb 16.9 mg/L Normal [facility] Comment on above: Performed By: #### P RUR, UA, MALBR, NAUR, UAMIC #### [address] [address] U Ratio Alb/Cre 77 mg/G High 0-30 [facility] Comment on above: Performed By: #### P RUR, UA, MALBR, NAUR, UAMIC #### [address] [address] NAURon 11-26-2024 Sodium [Moles/Vol] 35 mmol/L Normal [facility] Comment on above: Performed By: #### P RUR, UA, MALBR, NAUR, UAMIC #### [address] [address] PRURon 11-26-2024 U Protein 13 mg/dL Normal [facility] Comment on above: Performed By: #### P RUR, UA, MALBR, NAUR, UAMIC #### [address] [address] RFPon 11-26-2024 Albumin Level 4.4 G/dL Normal 3.4-4.8 [facility] Comment on above: Performed By: #### A MOSES CARRILLO #### [address] [address] BUN/Creatinine Ratio 16 ratio Normal 02-15 [facility] Comment on above: Performed By: #### A MOSES CARRILLO #### [address] [address] Calcium [Mass/Vol] 9.4 mg/dL Normal 8.4-10.2 [facility] Comment on above: Performed By: #### MOSES JENKINS #### [address] [address] Chloride [Moles/Vol] 95 mmol/L Low 98-107 [facility] Comment on above: Performed By: #### A GERARDO ABSGEL #### [address] [address] CO2 [Moles/Vol] 31 mmol/L Normal 23-31 [facility] Comment on above: Performed By: #### A GERARDO ABSGEL #### [address] [address] Creatinine [Mass/Vol] 0.82 mg/dL Normal 0.51-0.95 [facility] Comment on above: Performed By: #### Nayan CARRILLO ABSGEL #### [address] [address] Electrolyte Balance 6.0 mEq/L Normal 4.0-15.0 [facility] Comment on above: Performed By: #### OLY JENKINSGEL #### [address] [address] Glucose [Mass/Vol] 100 mg/dL Normal 83-110 [facility] Comment on above: Performed By: #### Nayan CARRILLO ABSGEL #### [address] [address] Phosphate [Mass/Vol] 3.9 mg/dL Normal 2.3-4.1 [facility] Comment on above: Performed By: #### Nayan CARRILLO ABSGEL #### [address] [address] Potassium [Moles/Vol] 4.2 mmol/L Normal 3.5-5.1 [facility] Comment on above: Performed By: #### Nayan CARRILLO ABSGEL #### [address] [address] Sodium [Moles/Vol] 132 mmol/L Low 136-145 [facility] Comment on above: Performed By: #### A MOSES CARRILLO #### [place] [address] Urea nitrogen [Mass/Vol] 13 mg/dL Normal 7-18 [facility] Comment on above: Performed By: #### A MOSES CARRILLO #### [place] [id number] UAon 11-26-2024 Color (U) Yellow Normal [facility] Comment on above: Performed By: #### P RUR, UA, MALBR, NAUR, UAMIC #### [place] [address] Glucose (U) [Mass/Vol] Negative Normal Negative [facility] Comment on above: Performed By: #### P RUR, UA, MALBR, NAUR, UAMIC #### [place] [address] Ketones Ql (U) Negative Normal Negative [facility] Comment on above: Performed By: #### P RUR, UA, MALBR, NAUR, UAMIC #### [place] [address] UA Appear Cloudy Abnormal Clear [facility] Comment on above: Performed By: #### P RUR, UA, MALBR, NAUR, UAMIC #### [place] [address] UA Blood Negative Normal Negative [facility] Comment on above: Performed By: #### P RUR, UA, MALBR, NAUR, UAMIC #### [address] [address] UA Leuk Est Small Abnormal Negative [facility] Comment on above: Performed By: #### P RUR, UA, MALBR, NAUR, UAMIC #### [address] [address] UA Nitrite Negative Normal Negative [facility] Comment on above: Performed By: #### P RUR, UA, MALBR, NAUR, UAMIC #### [address] [address] UA pH 8.5 Abnormal 5.0 - 8.0 [facility] Comment on above: Performed By: #### P RUR, UA, MALBR, NAUR, UAMIC #### [address] [address] UA Protein Negative Normal Negative [facility] Comment on above: Performed By: #### P RUR, UA, MALBR, NAUR, UAMIC #### [address] [address] UA Spec Grav <=1.005 Abnormal 1.015-1.025 [facility] Comment on above: Performed By: #### P RUR, UA, MALBR, NAUR, UAMIC #### [place] [address] UA Specimen Type Void Normal [facility] Comment on above: Performed By: #### P RUR, UA, MALBR, NAUR, UAMIC #### [address] [address] UA Urobilinogen 0.2 E.U./dL Normal 0.2-1.0 [facility] Comment on above: Performed By: #### P RUR, UA, MALBR, NAUR, UAMIC #### [place] [address] Urobilinogen (U) [Mass/Vol] Negative Normal Negative [facility] Comment on above: Performed By: #### P RUR, UA, MALBR, NAUR, UAMIC #### [address] [address] UAMICon 11-26-2024 UA Amorphus 2+ /hpf Normal [facility] Comment on above: Performed By: #### P RUR, UA, MALBR, NAUR, UAMIC ####[address] [address] UA Bacteria Trace Abnormal Negative [facility] Comment on above: Performed By: #### P RUR, UA, MALBR, NAUR, UAMIC ####[facility] [place], [place] [address] UA RBC 0-2 Normal 0-2 [facility] Comment on above: Performed By: #### P RUR, UA, MALBR, NAUR, UAMIC ####[facility] [place], [place] [address] UA Squam Epithelial 0-2 Normal 0-20 [facility] Comment on above: Performed By: #### P RUR, UA, MALBR, NAUR, UAMIC ####[place] [address] [place], [place] [address] UA WBC 3-5 Normal 0-5 [facility] Comment on above: Performed By: #### P RUR, UA, MALBR, NAUR, UAMIC ####[place] [id number] [place], [place] [address] Albumin DL <= 20 mg/L (U) [M ass/Vol]Ordered By: Caridad Carrera on 10-22-2024 Urine Random Microalbumin 14.1 mg/L NO RANGE EST. [facility] Anion gap in Serum or Plasma Ordered By: Caridad Carrera on 10-22-2024 Anion gap [Moles/Vol] 12 mmol/L 5-15 [facility] BUN/creatinine ratioOrdered By: Caridad Carrera on 10-22-2024 Urea nitrogen/Creatinine [Mass ratio] 12.9 mg/mg 10-20 [facility] Bilirubin, totalOrdered By: Caridad Carrera on 10-22-2024 Bilirubin [Mass/Vol] 0.45 mg/dL Normal 0.00-1.30 [facility] Comment on above: Order Comment: STANLEY Almonte FAX RESULTS TO [phone] [] Performed By: #### L 500.4050, L500.4100, L502.0250 ####[facility] [address] [place], [place], [id number] Calculated very low density lipoprotein (VLDL) cholesterol measurementOrdered By: Caridad Carrera on 10-22-2024 VLDL Cholesterol 14 mg/dL 5-40 [facility] Carbon dioxide, total [Moles /volume] in Central venous bloodOrdered By: Caridad Carrera on 10-22-2024 CO2 [Moles/Vol] 23.3 mmol/L Normal 21.0-32.0 [facility] Comment on above: Order Comment: PLEAS E FAX RESULTS TO [phone] [] Performed By: #### L 500.4050, L500.4100, L502.0250 ####[facility] [address] [place], [address] Chloride assayOrdered By: Soco Carrera on 10-22-2024 Chloride [Moles/Vol] 93 mmol/L Low 98-108 [facility] Comment on above: Order Comment: PLEAS E FAX RESULTS TO [phone] [] Performed By: #### L 500.4050, L500.4100, L502.0250 ####[facility] [address] [place], [address] Comprehensive Metabolic Prof ilon 10-22-2024 ALK PHOS 55 U/L Normal 35-104 [facility] Comment on above: Order Comment: PLEAS E FAX RESULTS TO [phone] [] Performed By: #### L 500.4050, L500.4100, L502.0250 ####[facility] [address] [place], [address] BUN/CRE 12.9 RATIO Normal 10-20 [facility] Comment on above: Order Comment: PLEAS E FAX RESULTS TO [phone] [] Performed By: #### L 500.4050, L500.4100, L502.0250 ####[facility] [address] [place], [address] GAP 12 Normal 5-15 [facility] Comment on above: Order Comment: PLEAS E FAX RESULTS TO [phone] [] Performed By: #### L 500.4050, L500.4100, L502.0250 ####[facility] [address] [place], [place], [address] GFR/1.73 sq M.predicted among non-blacks MDRD (S/P/Bld) [Vol rate/Area] 61 mL/min/{1.73_m2} Normal >60 [facility] Comment on above: Order Comment: PLEAS E FAX RESULTS TO [phone] [] Result Comment: mL/m in/1.73m2 CKD-EPI Creatinine Equation (2020) Performed By: #### L 500.4050, L500.4100, L502.0250 ####[facility] [address] [place], [place], [address] T PROT 7.2 g/dL Normal 5.9-8.4 [facility] Comment on above: Order Comment: PLEAS E FAX RESULTS TO [phone] [] Performed By: #### L 500.4050, L500.4100, L502.0250 ####[facility] [address] [place], [place], [address] Comprehensive Metabolic Prof ilOrdered By: Caridad Carrera on 10-22-2024 AST [Catalytic activity/Vol] 29 U/L Normal <=31 [facility] Comment on above: Order Comment: PLEAS E FAX RESULTS TO [phone] [] Performed By: #### L 500.4050, L500.4100, L502.0250 ####[facility] [address] [place], [place], [address] Creatinine Unsp time (U) [Ma ss/Vol]Ordered By: Caridad Carrera on 10-22-2024 Creatinine (U) [Mass/Vol] 46.10 mg/dL 28.00-217.0 0 [facility] GFR/1.73 sq M.predicted michael g non-blacks MDRD (S/P/Bld) [Vol rate/Area]Ordered By: Caridad Carrera on 10-22-2024 Estimated GFR (MDRD) Non-Af Amer 61 >60 [facility] Comment on above: mL/min/1.73m2 CKD-EP I Creatinine Equation (2020) LDL calc ser/plasOrdered By: Caridad Carrera on 10-22-2024 LDL Cholesterol, Calculated 76 mg/dL [facility] Comment on above: Lvpgckyuox=153-182 m g/dL & Higher Skuw=923 mg/dL or greater Lipid Profileon 10-22-2024 CHOL:HDL 2.35 Normal [facility] Comment on above: Order Comment: PLEAS E FAX RESULTS TO [phone] [] Performed By: #### L 500.4050, L500.4100, L502.0250 ####[facility] [address] [place], [address] Cholesterol in LDL [Mass/Vol] 76 mg/dL Normal [facility] Comment on above: Order Comment: PLEAS E FAX RESULTS TO [phone] [] Result Comment: Bord uzfnkh=708-614 mg/dL Higher Unjc=948 mg/dL or greater Performed By: #### L 500.4050, L500.4100, L502.0250 ####[facility] [address] [place], [address] Cholesterol in VLDL [Mass/Vol] 14 mg/dL Normal 5-40 [facility] Comment on above: Order Comment: PLEAS E FAX RESULTS TO [phone] [] Performed By: #### L 500.4050, L500.4100, L502.0250 ####[facility] [address] [place], [address] Microalbumin/creat ratio urO rdered By: Caridad Carrera on 10-22-2024 Urine Microalbumin/Creatin ine Ratio 305.9 mg/g CRE [facility] Potassium measurement (mass/ volume)Ordered By: Caridad Carrera on 10-22-2024 Potassium [Moles/Vol] 4.3 mmol/L Normal 3.3-5.1 [facility] Comment on above: Order Comment: PLEAS E FAX RESULTS TO [phone] [] Performed By: #### L 500.4050, L500.4100, L502.0250 ####[facility] [address] [place], [place], [address] Screening total cholesterol/ high density lipoprotein (HDL) cholesterol ratioOrdered By: Caridad Carrera on 10-22-2024 Cholesterol.total/Ch olesterol in HDL [Mass ratio] 2.35 {ratio} [facility] Serum creatinine measurement (mass/volume)Ordered By: Caridad Carrera on 10-22-2024 Creatinine [Mass/Vol] 0.95 mg/dL Normal 0.70-1.20 [facility] Comment on above: Order Comment: PLEAS E FAX RESULTS TO [phone] [] Performed By: #### L 500.4050, L500.4100, L502.0250 ####[facility] [address] [place], [place], [phone] Serum globulin measurementOr dered By: Caridad Carrera on 10-22-2024 Globulin (S) [Mass/Vol] 2.7 g/dL Normal 2.2-4.2 [facility] Comment on above: Order Comment: PLEAS E FAX RESULTS TO [phone] [] Performed By: #### L 500.4050, L500.4100, L502.0250 ####[facility] [address] [place], [place], [address] Serum glucose measurement (m ass/volume)Ordered By: Caridad Carrera on 10-22-2024 Glucose [Mass/Vol] 96 mg/dL Normal 70-99 [facility] Comment on above: Order Comment: PLEAS E FAX RESULTS TO [phone] [] Performed By: #### L 500.4050, L500.4100, L502.0250 ####[facility] [address] [place], [address] Serum or plasma alanine jarquin otransferase (ALT) measurementOrdered By: Caridad Carrera on 10-22-2024 ALT [Catalytic activity/Vol] 18 U/L Normal <=34 [facility] Comment on above: Order Comment: PLEAS E FAX RESULTS TO [phone] [] Performed By: #### L 500.4050, L500.4100, L502.0250 ####[facility] [address] [place], [address] Serum or plasma albumin aryan urement (mass/volume)Ordered By: Caridad Carrera on 10-22-2024 Albumin [Mass/Vol] 4.6 g/dL Normal 3.4-4.8 [facility] Comment on above: Order Comment: LAZAS E FAX RESULTS TO [phone] [] Performed By: #### L 500.4050, L500.4100, L502.0250 ####[facility] [address] [place], [address] Serum or plasma albumin/glob ulin mass ratioOrdered By: Caridad Carrera on 10-22-2024 Albumin/Globulin [Mass ratio] 1.7 {ratio} Normal 0.9-2.4 [facility] Comment on above: Order Comment: PLEAS E FAX RESULTS TO [phone] [] Performed By: #### L 500.4050, L500.4100, L502.0250 ####[facility] [address] [place], [address] Serum or plasma alkaline onur sphatase measurementOrdered By: Caridad Carrera on 10-22-2024 ALP [Catalytic activity/Vol] 55 U/L 35-104 [facility] Serum or plasma calcium aryan urement (mass/volume)Ordered By: Caridad Carrera on 10-22-2024 Calcium [Mass/Vol] 9.5 mg/dL Normal 7.6-11.0 [facility] Comment on above: Order Comment: STANLEY Almonte FAX RESULTS TO [phone] [] Performed By: #### L 500.4050, L500.4100, L502.0250 ####[facility] [address] [place], [place], [id number] Serum or plasma cholesterol in HDL measurement (mass/volume)Ordered By: Caridad Carrera on 10-22-2024 Cholesterol in HDL [Mass/Vol] 67 mg/dL Normal [facility] Comment on above: National Cholesterol Education Program (NCEP) guidelines:<40 mg/dL: Low HDL-cholesterol (major risk factor for CHD)>= 60 mg/dL: High HDL-cholesterol (negative risk factor for CHD)HDL-cholesterol is affected by a number of factors, e.g. smoking, exercise, hormones, sex and age. Order Comment: PLEAS Gage FAX RESULTS TO [phone] [] Result Comment: Rosa onal Cholesterol Education Program (NCEP) guidelines: <40 mg/dL: Low HDL-cholesterol (major risk factor for CHD) >= 60 mg/dL: High HDL-cholesterol (negative risk factor for CHD) HDL-cholesterol is affected by a number of factors, e.g. smoking, exercise, hormones, sex and age. Performed By: #### L 500.4050, L500.4100, L502.0250 ####[facility] [address] [place], [place], [id number] Serum or plasma cholesterol measurement (mass/volume)Ordered By: Caridad Carrera on 10-22-2024 Cholesterol [Mass/Vol] 156 mg/dL Normal <=200 [facility] Comment on above: Cholesterol level, D esirable <200 mg/dLBorderline high cholesterol 200-239 mg/dLHigh cholesterol >=240 mg/dLRecommendations of the NCEP Adult Treatment Panel for the following risk-cutoff thresholds for the [place] population. Order Comment: PLEAS E FAX RESULTS TO [phone] [] Result Comment: Chol esterol level, Desirable <200 mg/dL Borderline high cholesterol 200-239 mg/dL High cholesterol >=240 mg/dL Recommendations of the NCEP Adult Treatment Panel for the following risk-cutoff thresholds for the [place] population. Performed By: #### L 500.4050, L500.4100, L502.0250 ####[facility] [address] [place], [address] Serum or plasma urea nitroge n measurement (mass/volume)Ordered By: Caridad Carrera on 10-22-2024 Urea nitrogen [Mass/Vol] 12 mg/dL Normal 4-19 [facility] Comment on above: Order Comment: PLEAS E FAX RESULTS TO [phone] [] Performed By: #### L 500.4050, L500.4100, L502.0250 ####[facility] [address] [place], [place], [address] Sodium levelOrdered By: Jake Carrera on 10-22-2024 Sodium [Moles/Vol] 129 mmol/L Low 133-145 [facility] Comment on above: Order Comment: LAZAS E FAX RESULTS TO [phone] [] Performed By: #### L 500.4050, L500.4100, L502.0250 ####[facility] [address] [place], [address] Total proteinOrdered By: Edgardo Carrera on 10-22-2024 Protein [Mass/Vol] 7.2 g/dL 5.9-8.4 [facility] Triglycerides measurementOrd ered By: Caridad Carrera on 10-22-2024 Triglyceride [Mass/Vol] 70 mg/dL Normal [facility] Comment on above: The drugs N-Acetylcy steine and Metamizole may falsely depress this assay. Normal range: <150 mg/dLBorderline High: 150-199 mg/dLHigh: 200-499 mg/dLVery High: >500 mg/dL Order Comment: STANLEY Almonte FAX RESULTS TO [phone] [] Result Comment: The drugs N-Acetylcysteine and Metamizole may falsely depress this assay. Normal range: <150 mg/dL Borderline High: 150-199 mg/dL High: 200-499 mg/dL Very High: >500 mg/dL Performed By: #### L 500.4050, L500.4100, L502.0250 ####[facility] [address] [place], [place], [id number] Neurology Visit Reporton Neurology Visit Report [facility] [address], [address] [place] [address] OFFICE VISIT Date of Service: 10/13/24 MR#: [id number] Acct: [id number] Name: MATT CASTILLO Rep #: [id number] : 1945 Provider: ILIA coker Age/Sex: 79/F Location: [facility]. Status: Signed HPI HPI Chief Complaint: 3-month follow-up Details: The patient is a 79-year-old right handed female who presents for a 3-month follow-up after establishing care with Dr. Jones on 07/01/2024. She was referred 05/22/[address] Chung Oliva with [facility] for peripheral neuropathy of lower extremities. The patient endorses paresthesias that are present in both feet; the quality is described as burning and tingling with intermittent intensities. Some days it is relatively mild and other days it is much more intense. This problem is usually noted at night when she is attempting to sleep. Her medical history includes diabetes mellitus type 2 (well-controlled, on metformin), hyperlipidemia, essential hypertension (controlled on medication), mitral valve prolapse, bilateral hammertoes, spondylolithiasis of lumbar region, tremor, hyponatremia, and mild hearing impairment of the left ear. She is not a smoker. The patient's diagnosis of lumbar spondylolisthesis (level not known by the patient) causes intermittent pain on the right side at about L5-S1, which may radiate towards the right hip. The patient's family history is negative for neuropathies. The patient stated that an older sister did have a tremor. The patient has been seen by podiatry. Evaluation included EMG and nerve conduction studies. which were read as normal. Additionally, she had a skin biopsy performed. These were completed in April 2024. Pathology report was reviewed by Dr. Jones at her previous visit. Nerve fiber number appeared normal; however, there appeared to be degenerative changes within the epidermal nerves. The report goes on to say that this is not necessarily specifically indicative of small fiber neuropathy but a significant number of patients may go on to develop small fiber neuropathy if they do not already have that. 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 The patient is noted to have flat feet and bilateral hammertoes. Tarsal tunnel syndrome is of consideration as her foot anatomy can put additional strain on her tibial nerve. The paresthesias are only felt below the ankle. There is no presence of sensory abnormalities in the upper extremities. Treatment recommendations at her previous visit included magnesium oxide 400 mg nightly and Aspercreme as needed for pain on the bilateral feet. The patient states that this combination has been beneficial, overall reducing her pain. This will be continued. A trial of gabapentin at night was discussed; however, it was opted to defer this treatment for the time being. This could be considered in the future if the peripheral neuropathy were to progress. At her previous visit, several labs were ordered to assess for underlying etiologies. She recently had a CMP, revealing her chronic hyponatremia. Her level was 128 mmol/L, which appears to be her baseline. The patient states that this is being monitored and managed by her primary care. Vitamins B1, B6, B12, and folate were within normal range. Her ESR and sed rate were within normal range. Her magnesium was 2.3. Her SARAVANAN w/ reflex and NEVIN + protein electrophoresis were unremarkable. 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 ROS: HEENT: No changes in eyesight, although she wears glasses. No change in hearing. No difficulty swallowing or speaking. Respiratory: No recent respiratory illnesses. No chronic respiratory difficulties. No hemoptysis. No dry mouth. Cardiac: Has a known murmur related to mitral valve prolapse. No chest pain. No palpitations. : No incontinence. No hematuria. Extremities: Hammertoe second toes bilaterally. Bunion left first toe. Skin: No rashes or breakdown of skin. Neuro: No headaches. No changes in sleep. Positive for bilateral hand tremor. Positive for burning/tingling in the bilateral feet. Exam Const General: cooperative and no acute distress Orientation: alert, awake and oriented x3 Resp Effort Inspection: normal respiratory effort and symmetric chest movement Auscultation: Bilateral: Clear to Auscultation Cardio Rate: regular rate Rh (more content not included)... Normal [facility] Cardiology Visit Reporton Cardiology Visit Report [facility] [address] [place] [address] OFFICE VISIT Date of Service: 08/12/24 MR#: [id number] Acct: [id number] Name: MATT CASTILLO Rep #: [id number] : 1945 Provider: Dr. Ozzie Malave MD Age/Sex: 79/F Location: [facility] Status: Signed HPI HPI History of Present Illness Details: This is a 79-year-old female who presents here today for a cardiovascular follow-up. She has a history of hypertension, hyperlipidemia, diastolic dysfunction, mild MR, mild AI. From a cardiac standpoint, the patient is doing well. She does acknowledge an occasional palpitation. She describes this as a racing sensation. She denies chest pain, pressure or heaviness. She does have occasional SOB with exertion. She denies Orthopnea, and PND. She does not have bleeding issues; no blood in urine, stool or nosebleeds. She denies any decrease in energy level, myalgias, or claudication. She states that she has a cold sensation in bilateral lower extremities. She does not have edema, or sudden weight gain. She denies dizziness, lightheadedness, syncopal or near syncopal episodes, and headaches. Intake Vital Signs 06/05/23 10:08 07/01/24 09:57 08/12/24 10:17 Height 5 ft 2 in 5 ft 2 in 5 ft 2 in Weight: 133 lb BMI 24.3 BP 138/70 H Blood Pressure Location Lt brachial Position Sitting Respiration 16 Pulse 59 L Pulse Source Monitor Intake Visit Reasons: 1 y fu Slubber Hand Required: No Accompanied by: Self Is patient in pain?: No Allergies codeine Adverse Reaction (Verified 08/12/24 10:20) Nausea hydrocodone (From Vicodin) Adverse Reaction (Verified 08/12/24 10:20) Nausea irbesartan (From Avapro) Adverse Reaction (Verified 08/12/24 10:20) Nausea lisinopril Adverse Reaction (Verified 08/12/24 10:20) cough NSAIDS (Non-Steroidal Anti-Inflamma Adverse Reaction (Verified 08/12/24 10:20) Nausea oxycodone (From Percocet) Adverse Reaction (Verified 08/12/24 10:20) NAUSEA Medications ???Medication ???Instructions ???Recorded ???Confirmed ???Type metformin 500 mg tablet 500 mg PO QDAY 07/02/17 08/12/24 History simvastatin 20 mg tablet 20 mg PO QPM 07/02/17 08/12/24 History estradiol 0.5 mg tablet 0.5 mg PO .M/w/F 06/01/22 08/12/24 History diltiazem HCl 180 mg 180 mg PO QDAY #90 caps 07/15/24 08/12/24 Rx capsule,extended release 24 hr (Cartia XT) carvedilol 12.5 mg tablet 12.5 mg PO QHS #180 tabs 07/18/24 08/12/24 Rx Have you fallen in the past year?: No PFSH Medical History Nonrheumatic mitral (valve) insufficiency Essential hypertension Recurrent UTI Vision problems Chronic bronchitis Arthritis Hyperlipidemia Type 2 diabetes mellitus without complications Surgical History History of tonsillectomy H/O total hysterectomy History of appendectomy H/O hemorrhoidectomy Family History Father Heart disease Diabetes Sister Heart disease CVA (cerebral vascular accident) CAD (coronary artery disease) CABG and Valve surgery Cancer Mother Cancer Social History Smoking Status: Never smoker alcohol intake: current alcohol intake frequency: holidays/special occasions only substance use type: does not use caffeine: Yes (On avg 3 cups daily of half and half) Type: coffee ROS Const Const: Negative for fatigue, weakness, headache(s), daytime sleepiness or difficulty sleeping ENT ENT: Negative for headache(s), dizziness or Nosebleed/epistaxis Cardio Chest Pain: No Palpitations: No Edema: None Resp Respiratory: Positive for SOB with activity (at times); Negative for SOB at rest, SOB orthopnea SOB lying down or Cough GI GI: Negative nausea, vomiting or heartburn Neuro Neuro: Negative for dizziness, lightheadedness, near syncope, headache(s) or weakness Endo Endo: Negative for fatigue Cardiology Exam Const Appearance: cooperative and no acute distress Orientation: alert and oriented x3 Head Head: normal to inspection Ears: hearing grossly normal bilaterally Nose: external nose normal Face and Sinus: face symmetric Eyes General: appearance normal, both eyes and all related structures Eyelids: eyelids normal Conjunctivae: conjunctivae normal Pupils: PERRL and pupil size EOM: EOM intact bilaterally Neck Neck: normal visual inspection Carotids: Negative bruit Chest Chest inspection: normal inspection of the chest and normal respiratory effort Auscultation: Bilateral: Clear to Auscultation Cardio Palpation: normal PMI Rate: regular rate Rhythm: regular rhythm Heart sounds: S1 normal, S2 normal and murmur; Negative rub or (more content not included)... Normal [facility] NEVIN + Protein Elect, Serumon 07-07-2024 Albumin [Mass/Vol] 3.9 g/dL Normal 2.9-4.4 [facility] Comment on above: Order Comment: Test( s) 002441-Gkz. B1, Whole Bloodwas developed and its performance characteristicsdetermined by [employer]. It has not been cleared or approvedby the Food and Drug Administration.N Performed By: #### L 501.6710, L506.0250, L3100.5450, L3100.3425, L3300.8000, L101.9900, L503.0105, L501.5200 ####[facility] [address] [place], [address] Albumin/Globulin [Mass ratio] 1.3 {ratio} Normal 0.7-1.7 [facility] Comment on above: Order Comment: Test( s) 288223-Ozc. B1, Whole Bloodwas developed and its performance characteristicsdetermined by [employer]. It has not been cleared or approvedby the Food and Drug Administration.N Performed By: #### L 501.6710, L506.0250, L3100.5450, L3100.3425, L3300.8000, L101.9900, L503.0105, L501.5200 ####[facility] [address] [place], [address] LBFRN-5-HBMM 0.3 g/dL Normal 0.0-0.4 [facility] Comment on above: Order Comment: Test( s) 781916-Okb. B1, Whole Bloodwas developed and its performance characteristicsdetermined by [facility]. It has not been cleared or approvedby the Food and Drug Administration.N Performed By: #### L 501.6710, L506.0250, L3100.5450, L3100.3425, L3300.8000, L101.9900, L503.0105, L501.5200 ####[facility] [address] [place], [address] QXXDU-8-EGRD 0.9 g/dL Normal 0.4-1.0 [facility] Comment on above: Order Comment: Test( s) 295470-Asu. B1, Whole Bloodwas developed and its performance characteristicsdetermined by [facility]. It has not been cleared or approvedby the Food and Drug Administration.N Performed By: #### L 501.6710, L506.0250, L3100.5450, L3100.3425, L3300.8000, L101.9900, L503.0105, L501.5200 ####[facility] [address] [place], [address] BETA GLOBULIN 0.9 g/dL Normal 0.7-1.3 [facility] Comment on above: Order Comment: Test( s) 128061-Kzs. B1, Whole Bloodwas developed and its performance characteristicsdetermined by [employer]. It has not been cleared or approvedby the Food and Drug Administration.N Performed By: #### L 501.6710, L506.0250, L3100.5450, L3100.3425, L3300.8000, L101.9900, L503.0105, L501.5200 ####[facility] [address] [place], [address] GAMMA GLOBULIN 1.0 g/dL Normal 0.4-1.8 [facility] Comment on above: Order Comment: Test( s) 736105-Ynq. B1, Whole Bloodwas developed and its performance characteristicsdetermined by [employer]. It has not been cleared or approvedby the Food and Drug Administration.N Performed By: #### L 501.6710, L506.0250, L3100.5450, L3100.3425, L3300.8000, L101.9900, L503.0105, L501.5200 ####[facility] [address] [place], [address] Globulin (S) [Mass/Vol] 3.1 g/dL Normal 2.2-3.9 [facility] Comment on above: Order Comment: Test( s) 456701-Awz. B1, Whole Bloodwas developed and its performance characteristicsdetermined by [employer]. It has not been cleared or approvedby the Food and Drug Administration.N Performed By: #### L 501.6710, L506.0250, L3100.5450, L3100.3425, L3300.8000, L101.9900, L503.0105, L501.5200 ####[facility] [address] [place], [address] NEVIN RESULT,S Comment Normal . [facility] Comment on above: Order Comment: Test( s) 162783-Nrs. B1, Whole Bloodwas developed and its performance characteristicsdetermined by [employer]. It has not been cleared or approvedby the Food and Drug Administration.N Result Comment: No m onoclonality detected. Performed By: #### L 501.6710, L506.0250, L3100.5450, L3100.3425, L3300.8000, L101.9900, L503.0105, L501.5200 ####[facility] [address] [place], [address] IMMUNOGLOB A QN 144 mg/dL Normal 64-422 [facility] Comment on above: Order Comment: Test( s) 529144-Jep. B1, Whole Bloodwas developed and its performance characteristicsdetermined by [employer]. It has not been cleared or approvedby the Food and Drug Administration.N Performed By: #### L 501.6710, L506.0250, L3100.5450, L3100.3425, L3300.8000, L101.9900, L503.0105, L501.5200 ####[facility] [address] [place], [address] IMMUNOGLOB G QN 923 mg/dL Normal 586-1602 [facility] Comment on above: Order Comment: Test( s) 931808-Djd. B1, Whole Bloodwas developed and its performance characteristicsdetermined by [employer]. It has not been cleared or approvedby the Food and Drug Administration.N Performed By: #### L 501.6710, L506.0250, L3100.5450, L3100.3425, L3300.8000, L101.9900, L503.0105, L501.5200 ####[facility] [address] [place], [address] IMMUNOGLOB M QN 83 mg/dL Normal 26-217 [facility] Comment on above: Order Comment: Test( s) 126348-Ldp. B1, Whole Bloodwas developed and its performance characteristicsdetermined by [employer]. It has not been cleared or approvedby the Food and Drug Administration.N Performed By: #### L 501.6710, L506.0250, L3100.5450, L3100.3425, L3300.8000, L101.9900, L503.0105, L501.5200 ####[facility] [address] [place], [address] M-Howard Not Observed Normal Not Observed [facility] Comment on above: Order Comment: Test( s) 358847-Cov. B1, Whole Bloodwas developed and its performance characteristicsdetermined by [employer]. It has not been cleared or approvedby the Food and Drug Administration.N Performed By: #### L 501.6710, L506.0250, L3100.5450, L3100.3425, L3300.8000, L101.9900, L503.0105, L501.5200 ####[facility] [address] [place], [address] NOTE: Comment Normal . [facility] Comment on above: Order Comment: Test( s) 812313-Ebe. B1, Whole Bloodwas developed and its performance characteristicsdetermined by [facility] [employer]. It has not been cleared or approvedby the Food and Drug Administration.N Result Comment: Prot ein electrophoresis scan will follow via computer, mail, or embedded linux developer delivery. Performed By: #### L 501.6710, L506.0250, L3100.5450, L3100.3425, L3300.8000, L101.9900, L503.0105, L501.5200 ####[facility] [address] [place], [address] Protein [Mass/Vol] 7.0 g/dL Normal 6.0-8.5 [facility] Comment on above: Order Comment: Test( s) 966738-Kgn. B1, Whole Bloodwas developed and its performance characteristicsdetermined by [facility]. It has not been cleared or approvedby the Food and Drug Administration.N Performed By: #### L 501.6710, L506.0250, L3100.5450, L3100.3425, L3300.8000, L101.9900, L503.0105, L501.5200 ####[facility] [address] [place], [address] Vitamin B1, Thiamineon 07-07 VIT B1 THIAMINE 113.9 nmol/L Normal 66.5-200.0 [facility] Comment on above: Order Comment: Test( s) 737944-Hyq. B1, Whole Bloodwas developed and its performance characteristicsdetermined by [facility]. It has not been cleared or approvedby the Food and Drug Administration.N Result Comment: Perf ormed at: [address] [id number] V Belt Coverer: Ruperto Carney PhD, Phone: [phone] Performed at: [address] [id number] V Belt Coverer: Ana Saul MD, Phone: [phone] Performed By: #### L 501.6710, L506.0250, L3100.5450, L3100.3425, L3300.8000, L101.9900, L503.0105, L501.5200 ####[facility] [address] [place], [place], [id number] SARAVANAN w/ Reflex Mult Confirmon 07-02-2024 SARAVANAN,DIRECT Negative Normal Negative [facility] Comment on above: Result Comment: Perf ormed at: [facility] [address] [place], [place] [id number] V Belt Coverer: Ruperto Carney PhD, Phone: [phone] Performed By: #### L 501.6710, L506.0250, L3100.5450, L3100.3425, L3300.8000, L101.9900, L503.0105, L501.5200 ####[facility] [address] [place], [place], [address] SARAVANAN serumOrdered By: Tara malloy on 07-01-2024 Anti-Nuclear Antibody Screen Negative Negative [facility] Comment on above: Performed at: [facility] [address] [place], [place] [id number] Director: Ruperto Carney PhD, Phone: [phone] Addendum DocumentOrdered By: Tara Whiteside on 07-01-2024 Serum Immunofixation Comments Comment . [facility] Comment on above: Protein electrophore sis scan will follow via computer,mail, or embedded linux developer delivery. Albumin Elph [Mass/Vol]Order ed By: Tara Whiteside on 07-01-2024 Albumin [Mass/Vol] 3.9 g/dL 2.9-4.4 [facility] Alpha 1 globulin Elph [Mass/ Vol]Ordered By: Tara Whiteside on 07-01-2024 Hjbgs-6-Yhimumvxh (NEVIN) 0.3 g/dL 0.0-0.4 [facility] Gjjim-0-Oakdrgmpk (NEVIN) 0.9 g/dL 0.4-1.0 [facility] Beta globulin Elph [Mass/Vol ]Ordered By: Tara Whiteside on 07-01-2024 Beta-Globulins (NEVIN) 0.9 g/dL 0.7-1.3 [facility] C-reactive protein measureme nt by high sensitivity methodOrdered By: Tara Whiteside on 07-01-2024 C-Reactive Protein Extended Range < 2.90 mg/L 0.0-3.0 [facility] Comment on above: C-Reactive Protein ( CRP) provides useful information for thediagnosis, therapy and monitoring of inflammatory processesand associated diseases. For the evaluation of Relative Riskfor Cardiovascular Disease, a High Sensitivity CRP (HSCRP)should be ordered. CRPon 07-01-2024 C-REACTIVE PROT < 2.90 Normal 0.0-3.0 [facility] Comment on above: Order Comment: N Result Comment: C-Re active Protein (CRP) provides useful information for the diagnosis, therapy and monitoring of inflammatory processes and associated diseases. For the evaluation of Relative Risk for Cardiovascular Disease, a High Sensitivity CRP (HSCRP) should be ordered. Performed By: #### L 501.6710, L506.0250, L3100.5450, L3100.3425, L3300.8000, L101.9900, L503.0105, L501.5200 ####[facility] [address] [place], [address] Centromere B antibody assayO rdered By: Tara Whiteside on 07-01-2024 Centromere B Antibody Not Reportable [facility] DNA double strand Ab Qn (S)O rdered By: Tara Whiteside on 07-01-2024 Anti-Double Strand DNA Antibody Not Reportable [facility] Erythrocyte Sed Rateon 07-01 SED RATE 3 mm/hr Normal 0-30 [facility] Comment on above: Performed By: #### L 501.6710, L506.0250, L3100.5450, L3100.3425, L3300.8000, L101.9900, L503.0105, L501.5200 #### [facility] [address] [place], [address] Erythrocyte sedimentation ra teOrdered By: Tara Whiteside on 07-01-2024 ESR (Bld) [Velocity] 3 mm/h 0-30 [facility] Folates, (Folic Acid)on 06-22 0-2023 FOLATES 39.40 ng/mL Normal 3.1-55.4 [facility] Comment on above: Order Comment: N Performed By: #### L 501.6710, L506.0250, L3100.5450, L3100.3425, L3300.8000, L101.9900, L503.0105, L501.5200 ####[facility] [address] [place], [place], [address] Folic acid measurementOrdere d By: Tara Whiteside on 07-01-2024 Folate 39.40 ng/mL 3.1-55.4 [facility] Gamma globulin Elph [Mass/Vo l]Ordered By: Tara Whiteside on 07-01-2024 Gamma Globulins (NEVIN) 1.0 g/dL 0.4-1.8 [facility] IgA [Mass/Vol]Ordered By: Nathan Whiteside on 07-01-2024 Immunoglobulin A 144 mg/dL 64-422 [facility] IgG [Mass/Vol]Ordered By: Nathan Whiteside on 07-01-2024 Immunoglobulin G 923 mg/dL 586-1602 [facility] Immunoglobulin M measurement Ordered By: Tara Whiteside on 07-01-2024 Immunoglobulin M 83 mg/dL 26-217 [facility] Interpretation IEP [Interp]O rdered By: Tara Whiteside on 07-01-2024 Immunofixation Screen Comment . [facility] Comment on above: No monoclonality det ected. Tigist-1 antibody assayOrdered B y: Tara Whiteside on 07-01-2024 TIGIST-1 Antibody Not Reportable [facility] Magnesiumon 07-01-2024 Magnesium [Mass/Vol] 2.3 mg/dL Normal 1.6-2.6 [facility] Comment on above: Order Comment: N Performed By: #### L 501.6710, L506.0250, L3100.5450, L3100.3425, L3300.8000, L101.9900, L503.0105, L501.5200 ####[facility] [address] [place], [address] Magnesium measurementOrdered By: Tara Whiteside on 07-01-2024 Magnesium [Mass/Vol] 2.3 mg/dL 1.6-2.6 [facility] Neurology Visit Reporton Neurology Visit Report [facility] [address], [address] [place] [address] OFFICE VISIT Date of Service: 07/01/24 MR#: [id number] Acct: [id number] Name: MATT CASTILLO Rep #: [id number] : 1945 Provider: Dr. Maikol white MD Age/Sex: 79/F Location: [facility] Status: Signed HPI HPI Chief Complaint: Establish Care Details: The patient is a 79-year-old right handed female who presents to [facility]. She was referred 05/22/[address] Chung Oliva with [facility] for peripheral Neuropathy of lower extremity. This lady is seen with nurse practitioner Tara for evaluation. This patient complains of paresthesias burning quality both feet which is intermittent in intensity. Some days it is relatively mild and other days it is much more intense. Problem is usually noted at night when she is attempting to sleep. Patient has been seen by podiatry. Evaluation included EMG and nerve conduction studies which were read as normal. Patient did have a skin biopsy performed. I did review the pathology report. Nerve fiber number appeared normal however there appeared to be degenerative changes within the epidermal nerves. The report goes on to say that this is not necessarily specifically indicative of small fiber neuropathy but a significant number of patients may want to develop small fiber neuropathy if they do not already have that. Given patient's clinical presentation findings are certainly consistent with small fiber peripheral neuropathy. Patient also had a diagnosis of lumbar spondylolisthesis (level not known by the patient) but intermittently causes pain on the right side at about L5-S1 which may radiate towards the right hip. Patient is a well-controlled diabetic. She has no other signs of neuropathy. Patient's family history is negative for neuropathies. Her older sister who is 5 years older did have a tremor. ROS HEENT: No headaches, no changes in eyesight although she wears glasses denies change in hearing no difficulty swallowing or speaking. Respiratory: No recent respiratory illnesses. No chronic respiratory difficulties. No hemoptysis. Cardiac: Has a known murmur related to mitral valve prolapse. No chest pain. Abdomen: No difficulties. Does not vomit blood or passed blood in stool no incontinence no hematuria Extremities: Hammertoe second toes bilaterally. Bunion left first toe. Skin no rashes or breakdown of skin Exam Const Other: Blood pressure 137/84 pulse 64 regular respirations 14 temperature 97.7 O2 sat 99%. General appearance is a well-developed well-nourished female no acute distress HEENT normocephalic. Conjunctiva clear Respiratory clear to auscultation Cardiac regular rhythm diastolic murmur heard likely due to mitral valve prolapse Abdomen nondistended nontender Extremities bunion right first toe, hammertoes bilaterally at the second toes. No high arched foot may be mildly flat-footed. Skin intact on visualized areas Neurologic examination: Mental status: Awake alert oriented person place day month and year. Memory is 3 for 3. Cognition is normal. Concentration normal. No anxiety. No hallucinations or delusions. CN II-XII:. Pupils are equal round 4 mm in size. Visual soliman full to confrontation. Extraocular muscles intact. Symmetric facial sensation expression noted. Hearing appears to be slightly decr eased in the left ear compared to the right and tuning fork testing. Ability to swallow speak appear normal and tongue is midline. Motor: Normal strength all 4 extremities. No focal atrophy is observed. Cerebellar testing showed high-frequency low amplitude tremor slightly greater left hand than right. No cogwheeling rigidity or bradykinesia. Reflexes 2+ at biceps 1+ at knees. Toes down. Sensory exam shows that there may be a very slight asymmetry to tuning fork with less than the right ankle than the left but this is very subtle at best. Otherwise normal. Station is intact. Gait normal. Romberg testing shows he tends to waver and perhaps has a sensation of falling forward. Assessment and Plan Assessment and Plan (1) Neuropathy: Status: Acute Comment: Findings clinically consistent with small fiber neuropathy based on history. Plan: 1. Will screen patient for potential treatable causes for neuropathy including B12 folate B6 B1 SARAVANAN with reflex magnesium ESR CRP immuno fixation. 2. Patient will try topical nonsteroidal lidocaine cream (Aspercreme with LidoDerm). 3. Patient will also have a trial of magnesium oxide 400 mg p.o. daily. 4. We have deferred on using oral agents such as Neurontin for the time being. 5. Patient will return to neurology clinic once these studies and therapeutic trial have been done in about 3 months. (2) Tremor: Status: Acute Comment: Appears to be familial. Sister had this. Plan: No action on this poi (more content not included)... Normal [facility] Protein Fractions Immunofixa tion Geovanny [Interp]Ordered By: Tara Whiteside on 07-01-2024 M-Howard (NEVIN) Not Observed g/dL Not Observed [facility] DIRECTOR WRITING abOrdered By: Tara coker on 07-01-2024 DIRECTOR WRITING Antibody Not Reportable [facility] SCL-70 extractable nuclear A b Qn (S)Ordered By: Tara Whiteside on 07-01-2024 Scl-70 (Scleroderma) Antibody Not Reportable [facility] SS-A IgG antibody assayOrder ed By: Tara Whiteside on 07-01-2024 SS-A/Ro IgG Antibody Not Reportable [facility] SS-B IgG antibody assayOrder ed By: Tara Whiteside on 07-01-2024 SS-B/La IgG Antibody Not Reportable [facility] Serum albumin/globulin ratio Ordered By: Tara Whiteside on 07-01-2024 Albumin/Globulin (NEVIN) 1.3 0.7-1.7 [facility] Serum globulin measurement ( mass/volume)Ordered By: Tara Whiteside on 07-01-2024 Globulin (S) [Mass/Vol] 3.1 g/dL 2.2-3.9 [facility] Serum or plasma protein aryan urement (mass/volume)Ordered By: Tara Whiteside on 07-01-2024 Protein [Mass/Vol] 7.0 g/dL 6.0-8.5 [facility] Steven antibody assayOrdered By: Tara Whiteside on 07-01-2024 SM Antibody Not Reportable [facility] Thiamine [Mass/Vol]Ordered B y: Tara Whiteside on 07-01-2024 Whole Blood Vitamin B1 Level 113.9 nmol/L 66.5-200.0 [facility] Comment on above: Performed at: [address] [id number] Director: Ruperto Carney PhD, Phone: [phone] at: - [facility] [id number] Director: Ana Saul MD, Phone: [phone] Vitamin B12 measurementOrder ed By: Tara Whiteside on 07-01-2024 Cobalamin (Vitamin B12) [Mass/Vol] 877 pg/mL Normal 211-911 [facility] Comment on above: Performed By: #### L 501.6710, L506.0250, L3100.5450, L3100.3425, L3300.8000, L101.9900, L503.0105, L501.5200 ####[facility] [id number] [place], [address] Bilirubin, Directon 05-27-20 24 Bilirubin.direct [Mass/Vol] 0.23 mg/dL Normal 0.00-0.30 [facility] Comment on above: Order Comment: CHRIS GRIGGS ORDERED A LIPID AND LIVER TETO ORDERED A LIPID CMP, URINE Performed By: #### L 500.4050, L500.4100, L501.4700, L502.0250 #### [facility] [address] [place], [address] Comprehensive Metabolic Prof ilon 05-27-2024 Albumin [Mass/Vol] 4.2 g/dL Normal 3.2-5.0 [facility] Comment on above: Order Comment: CHRIS GRIGGS ORDERED A LIPID AND LIVER TETO ORDERED A LIPID CMP, URINE Performed By: #### L 500.4050, L500.4100, L501.4700, L502.0250 #### [facility] [address] [place], [address] Albumin/Globulin [Mass ratio] 1.4 {ratio} Normal 0.9-2.4 [facility] Comment on above: Order Comment: CHRIS GRIGGS ORDERED A LIPID AND LIVER TETO ORDERED A LIPID CMP, URINE Performed By: #### L 500.4050, L500.4100, L501.4700, L502.0250 #### [facility] [address] [place], [address] ALK P 56 U/L Normal 45-117 [facility] Comment on above: Order Comment: CHRIS GRIGGS ORDERED A LIPID AND LIVER TETO ORDERED A LIPID CMP, URINE Performed By: #### L 500.4050, L500.4100, L501.4700, L502.0250 #### [facility] [address] [place], [address] ALT [Catalytic activity/Vol] 18 U/L Normal 13-56 [facility] Comment on above: Order Comment: CHRIS GRIGGS ORDERED A LIPID AND LIVER TETO ORDERED A LIPID CMP, URINE Performed By: #### L 500.4050, L500.4100, L501.4700, L502.0250 #### [facility] [address] [place], [address] AST [Catalytic activity/Vol] 21 U/L Normal 15-37 [facility] Comment on above: Order Comment: CHRIS GRIGGS ORDERED A LIPID AND LIVER TETO ORDERED A LIPID CMP, URINE Performed By: #### L 500.4050, L500.4100, L501.4700, L502.0250 #### [facility] [address] [place], [address] Bilirubin [Mass/Vol] 0.70 mg/dL Normal 0.20-1.00 [facility] Comment on above: Order Comment: CHRIS GRIGGS ORDERED A LIPID AND LIVER TETO ORDERED A LIPID CMP, URINE Result Comment: For patients on eltrombopag therapy, use of Dimension [place] TBIL is not recommended. Performed By: #### L 500.4050, L500.4100, L501.4700, L502.0250 #### [facility] [address] [place], [address] BUN/CRE 10.0 RATIO Normal 10-20 [facility] Comment on above: Order Comment: CHRIS GRIGGS ORDERED A LIPID AND LIVER TETO ORDERED A LIPID CMP, URINE Performed By: #### L 500.4050, L500.4100, L501.4700, L502.0250 #### [facility] [address] [place], [address] CA,Total 9.0 mg/dL Normal 8.5-10.1 [facility] Comment on above: Order Comment: CHRIS GRIGGS ORDERED A LIPID AND LIVER TETO ORDERED A LIPID CMP, URINE Performed By: #### L 500.4050, L500.4100, L501.4700, L502.0250 #### [facility] [address] [place], [address] Chloride [Moles/Vol] 94 mmol/L Low 98-107 [facility] Comment on above: Order Comment: CHRIS GRIGGS ORDERED A LIPID AND LIVER TETO ORDERED A LIPID CMP, URINE Performed By: #### L 500.4050, L500.4100, L501.4700, L502.0250 #### [facility] [address] [place], [address] CO2 [Moles/Vol] 25.0 mmol/L Normal 21.0-32.0 [facility] Comment on above: Order Comment: CHRIS GRIGGS ORDERED A LIPID AND LIVER TETO ORDERED A LIPID CMP, URINE Performed By: #### L 500.4050, L500.4100, L501.4700, L502.0250 #### [facility] [address] [place], [address] Creatinine [Mass/Vol] 0.90 mg/dL Normal 0.55-1.02 [facility] Comment on above: Order Comment: CHRIS GRIGGS ORDERED A LIPID AND LIVER TETO ORDERED A LIPID CMP, URINE Result Comment: The validity of the calculated GFR GFRAA in patients over 70 years has not been determined. Clinical correlation is essential. Performed By: #### L 500.4050, L500.4100, L501.4700, L502.0250 #### [facility] [address] [place], [address] EST GFR - AA 78 mL/min Normal >60 [facility] Comment on above: Order Comment: CHRIS RGIGGS ORDERED A LIPID AND LIVER TETO ORDERED A LIPID CMP, URINE Result Comment: Afri can Australian GFR Calc Performed By: #### L 500.4050, L500.4100, L501.4700, L502.0250 #### [facility] [address] [place], [address] GAP 9 Normal 5-15 [facility] Comment on above: Order Comment: CHRIS GRIGGS ORDERED A LIPID AND LIVER TETO ORDERED A LIPID CMP, URINE Performed By: #### L 500.4050, L500.4100, L501.4700, L502.0250 #### [facility] [address] [place], [address] GFR/1.73 sq M.predicted among non-blacks MDRD (S/P/Bld) [Vol rate/Area] 64 mL/min/{1.73_m2} Normal >60 [facility] Comment on above: Order Comment: CHRIS INDU ORDERED A LIPID AND LIVER TETO ORDERED A LIPID CMP, URINE Result Comment: Non- GFR Calc Performed By: #### L 500.4050, L500.4100, L501.4700, L502.0250 #### [facility] [address] [place], [address] Globulin (S) [Mass/Vol] 3.1 g/dL Normal 2.2-4.2 [facility] Comment on above: Order Comment: DOREENFELIPE GRIGGS ORDERED A LIPID AND LIVER TETO ORDERED A LIPID CMP, URINE Performed By: #### L 500.4050, L500.4100, L501.4700, L502.0250 #### [facility] [address] [place], [address] Glucose [Mass/Vol] 93 mg/dL Normal 74-106 [facility] Comment on above: Order Comment: CHRIS GRIGGS ORDERED A LIPID AND LIVER TETO ORDERED A LIPID CMP, URINE Performed By: #### L 500.4050, L500.4100, L501.4700, L502.0250 #### [facility] [address] [place], [address] Potassium [Moles/Vol] 4.1 mmol/L Normal 3.5-5.1 [facility] Comment on above: Order Comment: CHRIS GRIGGS ORDERED A LIPID AND LIVER TETO ORDERED A LIPID CMP, URINE Performed By: #### L 500.4050, L500.4100, L501.4700, L502.0250 #### [facility] [address] [place], [address] Sodium [Moles/Vol] 128 mmol/L Low 136-145 [facility] Comment on above: Order Comment: CHRIS GRIGGS ORDERED A LIPID AND LIVER TETO ORDERED A LIPID CMP, URINE Performed By: #### L 500.4050, L500.4100, L501.4700, L502.0250 #### [facility] [address] [place], [address] T PROT 7.3 g/dL Normal 6.4-8.2 [facility] Comment on above: Order Comment: CHRIS GRIGGS ORDERED A LIPID AND LIVER TETO ORDERED A LIPID CMP, URINE Performed By: #### L 500.4050, L500.4100, L501.4700, L502.0250 #### [facility] [address] [place], [address] Urea nitrogen [Mass/Vol] 9 mg/dL Normal 7-18 [facility] Comment on above: Order Comment: CHRIS GRIGGS ORDERED A LIPID AND LIVER TETO ORDERED A LIPID CMP, URINE Performed By: #### L 500.4050, L500.4100, L501.4700, L502.0250 #### [facility] [address] [place], [address] Dexa Bone Density Studyon Dexa Bone Density Study [facility] Services [address] [place] [address] Dexa Bone Density Study MR#: [id number] Acct: [id number] Name: MATT CASTILLO Rep #: [id number] : 1945 F 79 From: Yeison lujan MD PCP: Dr. Caridad Carrera DO Status: [facility] Study: Dexa Bone Density Study Date of Exam: 05/27/24 Exam# [id number] Ordering Dr: Caridad Carrera DO [id number] STUDY: DUAL ENERGY X-RAY ABSORPTIOMETRY / DXA REASON FOR EXAM: Female, 79 years old. [id number] TECHNIQUE: Bone Mineral Density (BMD) measurements of lumbar spine and bilateral hips were obtained. COMPARISON: Comparison is made with prior study dated December 08, 2010. FINDINGS: Lumbar Spine (L1-L4): g/cm2 (1.066) / T-score (0.2) / Z-score (2.8) Findings are suggestive of normal bone density with a low fracture risk. Left Femur Total: g/cm2 (0.952) / T-score (0.1) / Z-score (2.1) Left Femoral Neck: g/cm2 (0.817) / T-score (-0.3) / Z-score (2.0) Right Femur Total: g/cm2 (0.959) / T-score (0.1) / Z-score (2.2) Right Femoral Neck: g/cm2 (0.763) / T-score (-0.8) / Z-score (1.5) The T-Scores on the most recent prior examination were: Lumbar Spine (L1-L4): There has been worsening of bone density since the previous examination. Left Femur Total: which represents a worsening of 15%. Right Femur Total: which represents a worsening of 15.8%. BD/Dexa Bone Density Study IMPRESSION: The patient is considered normal as outlined below according to World Rajiv Organization (WHO) criteria with a low fracture risk. There has been worsening of bone density since the previous examination. Reference Information: The T-score is the number of standard deviations above or below the standard which is normal for young adults at their peak bone mineral density. The World Health Organization (WHO) interprets the T-scores as follows: Above -1 Normal bone density Between -1 and -2.5 Osteopenia Equal to / or below -2.5 Osteoporosis As a practical clinical guideline, osteopenia may be graded as follows: Mild -1 through -1.5 Moderate -1.6 through -2.0 Severe -2.1 through -2.4 The Z-score is the number of standard deviations above or below age-matched controls. A Z-score of less than -1.5 would be considered abnormal. References: 1. NIH Osteoporosis and Related Bone Diseases www osteo.org 2. International Society for Clinical Densitometry www iscd.org 3. National Osteoporosis Foundation www nof.org Electronically Signed: Yeison Archer MD at 14:18 EST , CC: Dr. 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, [address] Cholesterol in HDL [Mass/Vol] 70 mg/dL Normal [facility] Comment on above: Order Comment: CHRIS GRIGGS ORDERED A LIPID AND LIVER TETO ORDERED A LIPID CMP, URINE Result Comment: The drugs N-Acetylcysteine and Metamizole may falsely depress this assay. Reference Range HDL <40 mg/dL Low HDL Cholesterol HDL >or= 60 mg/dL High HDL Cholesterol Performed By: #### L 500.4050, L500.4100, L501.4700, L502.0250 #### [facility] [address] [place], [address] Cholesterol in LDL [Mass/Vol] 57 mg/dL Normal 0-130 [facility] Comment on above: Order Comment: CHRIS GRIGGS ORDERED A LIPID AND LIVER TETO ORDERED A LIPID CMP, URINE Performed By: #### L 500.4050, L500.4100, L501.4700, L502.0250 #### [facility] [address] [place], [address] Cholesterol in VLDL [Mass/Vol] 10 mg/dL Normal 5-40 [facility] Comment on above: Order Comment: CHRIS GRIGGS ORDERED A LIPID AND LIVER TETO ORDERED A LIPID CMP, URINE Performed By: #### L 500.4050, L500.4100, L501.4700, L502.0250 #### [facility] [address] [place], [address] Triglyceride [Mass/Vol] 51 mg/dL Normal [facility] Comment on above: Order Comment: CHRIS GRIGGS ORDERED A LIPID AND LIVER TETO ORDERED A LIPID CMP, URINE Result Comment: The drugs N-Acetylcysteine and Metamizole may falsely depress this assay. Serum Triglycerides Reference Interval Normal <150 mg/dL Borderline high 150 - 199 mg/dL High 200 - 499 mg/dL Very High > or = 500 mg/dL Performed By: #### L 500.4050, L500.4100, L501.4700, L502.0250 #### [facility] [address] [place], [place], [address] Microalb:Creat Ratio,Random URon 05-27-2024 Creatinine [Mass/Vol] 17.10 mg/dL Normal NO RANGE EST. [facility] Comment on above: Order Comment: CHRIS GRIGGS ORDERED A LIPID AND LIVER TETO ORDERED A LIPID CMP, URINE Performed By: #### L 500.4050, L500.4100, L501.4700, L502.0250 #### [facility] [address] [place], [place], [address] MALB:CRE 184.8 mg/g CRE High <30 mg/g CRE [facility] Comment on above: Order Comment: FELIPE INDU ORDERED A LIPID AND LIVER TETO ORDERED A LIPID CMP, URINE Performed By: #### L 500.4050, L500.4100, L501.4700, L502.0250 #### [facility] [address] [place], [place], [id number] MICROALBUMIN,UR 31.6 mg/L Normal NO RANGE EST. [facility] Comment on above: Order Comment: CHRIS ORDERED A LIPID AND LIVER TETO ORDERED A LIPID CMP, URINE Performed By: #### L 500.4050, L500.4100, L501.4700, L502.0250 #### [facility] [address] [place], [place], [id number] LABORATORYOrdered By: SYSTEM SYSTEM on 12-21-2023 Sodium [Moles/Vol] 133 mmol/L Low 136 - 145 mmol/L AO ADM SS NAon 12-21-2023 Sodium [Moles/Vol] 133 mmol/L Low 136-145 [facility] Comment on above: Performed By: #### N A #### Zhang [address] [address] Basophil percentageOrdered B y: Mari Robert on 11-22-2023 Bilirubin [Mass/Vol] 0.70 mg/dL 0.20-1.00 [facility] Comment on above: For patients on eltr ombopag therapy, use of Dimension [place] TBIL is not recommended. Chloride [Moles/Vol] 97 mmol/L 98-107 [facility] Cholesterol [Mass/Vol] 149 mg/dL <200 [facility] Comment on above: <200 mg/dL Desirable 200-240 mg/dL Borderline >240 mg/dL High Risk Glucose [Mass/Vol] 101 mg/dL 74-106 [facility] Comment on above: Fasting Glucose resu lt from 100 to 125 mg/dL suggests IMPAIRED HOMEOSTASIS per A.D.A. criteria. Potassium [Moles/Vol] 4.9 mmol/L 3.5-5.1 [facility] Protein [Mass/Vol] 7.1 g/dL 6.4-8.2 [facility] Sodium [Moles/Vol] 129 mmol/L 136-145 [facility] Triglyceride [Mass/Vol] 55 mg/dL <199 [facility] Comment on above: The drugs N-Acetylcy steine and Metamizole may falsely depress this assay.Serum Triglycerides Reference Interval Normal <150 mg/dL Borderline high 150 - 199 mg/dL High 200 - 499 mg/dL Very High > or = 500 mg/dL Direct bilirubinOrdered By: Mari Robert on 11-22-2023 Bilirubin.direct [Mass/Vol] 0.20 mg/dL 0.00-0.30 [facility] Laboratory - Chemistry and C hemistry - challengeOrdered By: Mari Robert on 11-22-2023 Albumin/Globulin [Mass ratio] 1.3 {ratio} 0.9-2.4 [facility] ALP [Catalytic activity/Vol] 52 U/L 45-117 [facility] ALT [Catalytic activity/Vol] 28 U/L 13-56 [facility] Cholesterol in HDL [Mass/Vol] 66 mg/dL >40 [facility] Comment on above: The drugs N-Acetylcy steine and Metamizole may falsely depress this assay. Reference Range HDL <40 mg/dL Low HDL Cholesterol HDL >or= 60 mg/dL High HDL Cholesterol Cholesterol in LDL [Mass/Vol] 72 mg/dL 0-130 [facility] CO2 [Moles/Vol] 29.0 mmol/L 21.0-32.0 [facility] Globulin (S) [Mass/Vol] 3.1 g/dL 2.2-4.2 [facility] Urea nitrogen/Creatinine [Mass ratio] 12.9 mg/mg 10-20 [facility] No Panel InformationOrdered By: Mari Robert on 11-22-2023 Estimated GFR (MDRD) Amer 83 mL/min >60 [facility] Comment on above: GFR Calc Estimated GFR (MDRD) Non-Af Amer 68 mL/min >60 [facility] Comment on above: Non- GFR Calc Urine Microalbumin/Creatin ine Ratio 69.8 mg/g CRE <30 [facility] VLDL Cholesterol 11 mg/dL 5-40 [facility] Serum or plasma calcium aryan urement (mass/volume)Ordered By: Mari Robert on 11-22-2023 Calcium [Mass/Vol] 9.2 mg/dL 8.5-10.1 [facility] Serum or plasma creatinine m easurement (mass/volume)Ordered By: Mari Robert on 11-22-2023 Creatinine [Mass/Vol] 0.85 mg/dL 0.55-1.02 [facility] Comment on above: The validity of the calculated GFR & GFRAA in patients over 70 years has not been determined. Clinical correlation is essential. Serum or plasma urea nitroge n measurement (mass/volume)Ordered By: Mari Robert on 11-22-2023 Urea nitrogen [Mass/Vol] 11 mg/dL 7-18 [facility] Thin prep Papanicolaou smear with manual screeningOrdered By: Mari Robert on 11-22-2023 Thin prep Papanicolaou smear with manual screening 4.0 g/dL 3.2-5.0 [facility] Thin prep Papanicolaou smear with manual screening 27 U/L 15-37 [facility] Thin prep Papanicolaou smear with manual screening 3 5-15 [facility] Thin prep Papanicolaou smear with manual screening 21.0 mg/L NO RANGE EST. [facility] Urine creatinine measurement (mass/volume)Ordered By: Mari Robert on 11-22-2023 Creatinine (U) [Mass/Vol] 30.10 mg/dL NO RANGE EST. [facility] Basophil percentageOrdered B y: Mari Robert on 06-05-2023 Bilirubin [Mass/Vol] 0.60 mg/dL 0.20-1.00 [facility] Comment on above: For patients on eltr ombopag therapy, use of Dimension [place] TBIL is not recommended. Cholesterol [Mass/Vol] 136 mg/dL <200 [facility] Comment on above: <200 mg/dL Desirable 200-240 mg/dL Borderline >240 mg/dL High Risk Protein [Mass/Vol] 7.1 g/dL 6.4-8.2 [facility] Triglyceride [Mass/Vol] 61 mg/dL <199 [facility] Comment on above: The drugs N-Acetylcy steine and Metamizole may falsely depress this assay.Serum Triglycerides Reference Interval Normal <150 mg/dL Borderline high 150 - 199 mg/dL High 200 - 499 mg/dL Very High > or = 500 mg/dL Direct bilirubinOrdered By: Mari Robert on 06-05-2023 Bilirubin.direct [Mass/Vol] 0.18 mg/dL 0.00-0.30 [facility] Laboratory - Chemistry and C hemistry - challengeOrdered By: Mari Robert on 06-05-2023 ALP [Catalytic activity/Vol] 54 U/L 45-117 [facility] ALT [Catalytic activity/Vol] 29 U/L 13-56 [facility] Free T4 [Mass/Vol] 0.97 ng/dL 0.76-1.46 [facility] Globulin (S) [Mass/Vol] 3.2 g/dL 2.2-4.2 [facility] No Panel InformationOrdered By: Mari Robert on 06-05-2023 Free Triiodothyronine (T3) pg/dL 2.0 pg/mL 2.18-3.98 [facility] Thyroid Stimulating Hormone (TSH) 3.33 uIU/mL 0.358-3.74 [facility] Serum or plasma albumin aryan urement (mass/volume)Ordered By: Mari Robert on 06-05-2023 Albumin [Mass/Vol] 3.9 g/dL 3.2-5.0 [facility] Serum or plasma cholesterol in HDL measurement (mass/volume)Ordered By: Mari Robert on 06-05-2023 Cholesterol in HDL [Mass/Vol] 60 mg/dL >40 [facility] Comment on above: The drugs N-Acetylcy steine and Metamizole may falsely depress this assay. Reference Range HDL <40 mg/dL Low HDL Cholesterol HDL >or= 60 mg/dL High HDL Cholesterol Serum or plasma cholesterol in VLDL measurement (mass/volume)Ordered By: Mari Robert on 06-05-2023 Cholesterol in VLDL [Mass/Vol] 12 mg/dL 5-40 [facility] Serum or plasma low density lipoprotein (LDL) cholesterol measurement (mass/volume)Ordered By: Mari Robert on 06-05-2023 Cholesterol in LDL [Mass/Vol] 64 mg/dL 0-130 [facility] Thin prep Papanicolaou smear with manual screeningOrdered By: Mari Robert on 06-05-2023 Thin prep Papanicolaou smear with manual screening 22 U/L 15-37 [facility] YESSENIABRon 04-24-2023 U Creatinine 28.0 mg/dL Normal 28.0-117.0 [facility] [place] Comment on above: Performed By: #### M ALBR #### [address] [address] U Microalb 1681 mcg/dL Normal [facility] [place] Comment on above: Performed By: #### M ALBR #### Zhang [address] [address] U Ratio Alb/Cre 60 mcg/mg High 0-30 [facility] [place] Comment on above: Performed By: #### M ALBR #### [address] [address] LABORATORYOrdered By: SYSTEM SYSTEM on 11-06-2022 Calcium [Mass/Vol] 9.3 mg/dL Invalid Interpretation Code 8.4 - 10.2 mg/dL AO ADM SS Chloride [Moles/Vol] 96 mmol/L Invalid Interpretation Code 98 - 107 mmol/L AO ADM SS CO2 [Moles/Vol] 28 mmol/L Invalid Interpretation Code 23 - 31 mmol/L AO ADM SS Creatinine [Mass/Vol] 0.81 mg/dL Invalid Interpretation Code 0.55 - 1.02 mg/dL AO ADM SS Electrolyte Balance 9.0 mEq/L Invalid Interpretation Code 4.0 - 15.0 mEq/L AO ADM SS GFR/1.73 sq M.predicted among blacks MDRD (S/P/Bld) [Vol rate/Area] 83 ml/min/1.73sqm Invalid Interpretation Code AO Chemistry S GFR/1.73 sq M.predicted among non-blacks MDRD (S/P/Bld) [Vol rate/Area] 69 ml/min/1.73sqm Invalid Interpretation Code AO Chemistry S Glucose [Mass/Vol] 92 mg/dL Invalid Interpretation Code 83 - 110 mg/dL AO ADM SS Potassium [Moles/Vol] 4.7 mmol/L Invalid Interpretation Code 3.5 - 5.1 mmol/L AO ADM SS Sodium [Moles/Vol] 133 mmol/L Invalid Interpretation Code 136 - 145 mmol/L AO ADM SS Urea nitrogen [Mass/Vol] 8 mg/dL Invalid Interpretation Code 7 - 18 mg/dL AO ADM SS Urea nitrogen/Creatinine [Mass ratio] 10 ratio Invalid Interpretation Code 7 - 27 ratio AO ADM SS Basophil percentageon 2021 Bilirubin [Mass/Vol] 0.60 mg/dL 0.20-1.00 [facility] Work Phone: Comment on above: For patients on eltr ombopag therapy, use of Dimension [place] TBIL is not recommended. Chloride [Moles/Vol] 90 mmol/L 98-107 [facility] Work Phone: Cholesterol [Mass/Vol] 162 mg/dL <200 [facility] Work Phone: Comment on above: <200 mg/dL Desirable 200-240 mg/dL Borderline >240 mg/dL High Risk Glucose [Mass/Vol] 105 mg/dL 74-106 [facility] Work Phone: Comment on above: Fasting Glucose resu lt from 100 to 125 mg/dL suggests IMPAIRED HOMEOSTASIS per A.D.A. criteria. Potassium [Moles/Vol] 4.1 mmol/L 3.5-5.1 [facility] Work Phone: Protein [Mass/Vol] 7.7 g/dL 6.4-8.2 [facility] Work Phone: Sodium [Moles/Vol] 127 mmol/L 136-145 [facility] Work Phone: Triglyceride [Mass/Vol] 59 mg/dL <199 [facility] Work Phone: Comment on above: The drugs N-Acetylcy steine and Metamizole may falsely depress this assay.Serum Triglycerides Reference Interval Normal <150 mg/dL Borderline high 150 - 199 mg/dL High 200 - 499 mg/dL Very High > or = 500 mg/dL Laboratory - Chemistry and C hemistry - challengeon 01-18-2022 ALP [Catalytic activity/Vol] 56 U/L 45-117 [facility] Work Phone: ALT [Catalytic activity/Vol] 26 U/L 13-56 [facility] Work Phone: CO2 [Moles/Vol] 31.0 mmol/L 21.0-32.0 [facility] Work Phone: Globulin (S) [Mass/Vol] 3.3 g/dL 2.2-4.2 [facility] Work Phone: Urea nitrogen/Creatinine [Mass ratio] 11.1 mg/mg 10-20 [facility] Work Phone: No Panel Informationon 01-18 Estimated GFR (MDRD) Amer 78 mL/min >60 [facility] Work Phone: Comment on above: GFR Calc Estimated GFR (MDRD) Non-Af Amer 65 mL/min >60 [facility] Work Phone: Comment on above: Non- GFR Calc Urine Microalbumin/Creatin ine Ratio TNP [facility] Work Phone: Comment on above: Test not performed Serum or plasma albumin aryan urement (mass/volume)on 01-18-2022 Albumin [Mass/Vol] 4.4 g/dL 3.2-5.0 [facility] Work Phone: Serum or plasma albumin/glob ulin mass ratioon 01-18-2022 Albumin/Globulin [Mass ratio] 1.3 {ratio} 0.9-2.4 [facility] Work Phone: Serum or plasma calcium aryan urement (mass/volume)on 01-18-2022 Calcium [Mass/Vol] 9.3 mg/dL 8.5-10.1 [facility] Work Phone: Serum or plasma cholesterol in HDL measurement (mass/volume)on 01-18-2022 Cholesterol in HDL [Mass/Vol] 64 mg/dL >40 [facility] Work Phone: Comment on above: The drugs N-Acetylcy steine and Metamizole may falsely depress this assay. Reference Range HDL <40 mg/dL Low HDL Cholesterol HDL >or= 60 mg/dL High HDL Cholesterol Serum or plasma cholesterol in VLDL measurement (mass/volume)on 01-18-2022 Cholesterol in VLDL [Mass/Vol] 12 mg/dL 5-40 [facility] Work Phone: Serum or plasma creatinine m easurement (mass/volume)on 01-18-2022 Creatinine [Mass/Vol] 0.90 mg/dL 0.55-1.02 [facility] Work Phone: Comment on above: The validity of the calculated GFR & GFRAA in patients over 70 years has not been determined. Clinical correlation is essential. Serum or plasma low density lipoprotein (LDL) cholesterol measurement (mass/volume)on 01-18-2022 Cholesterol in LDL [Mass/Vol] 86 mg/dL 0-130 [facility] Work Phone: Serum or plasma urea nitroge n measurement (mass/volume)on 01-18-2022 Urea nitrogen [Mass/Vol] 10 mg/dL 7-18 [facility] Work Phone: Thin prep Papanicolaou smear with manual screeningon 01-18-2022 Thin prep Papanicolaou smear with manual screening 24 U/L 15-37 [facility] Work Phone: Thin prep Papanicolaou smear with manual screening 6 5-15 [facility] Work Phone: Thin prep Papanicolaou smear with manual screening 14.3 mg/L NO RANGE EST. [facility] Work Phone: Urine creatinine measurement (mass/volume)on 01-18-2022 Creatinine (U) [Mass/Vol] mg/dL NO RANGE EST. [facility] Work Phone: Lab Report: Lipid Profileon 07-03-2017 Cholesterol 148 mg/dL Invalid Interpretation Code 200 [facility] [employer] Work Phone: [phone] HDL Cholesterol 67 mg/dL Invalid Interpretation Code [facility] [employer] Work Phone: [phone] LDL Cholesterol 67 mg/dL Invalid Interpretation Code 0-130 [employer] Work Phone: [phone] Triglyceride 69 mg/dL Invalid Interpretation Code [facility] [employer] Work Phone: [phone] very low density lipoproteins 14 mg/dL Invalid Interpretation Code 5-40 [facility] [employer] Work Phone: [phone] Lab Report: Liver Profileon 07-03-2017 Alanine aminotransferase (ALT) 29 U/L Invalid Interpretation Code 12-78 [facility] [employer] Work Phone: [phone] Albumin 4.3 g/dL Invalid Interpretation Code 3.4-5.0 [facility] [employer] Work Phone: [phone] Alkaline phosphatase (ALP) 61 U/L Invalid Interpretation Code 45-117 [facility] [employer] Work Phone: [phone] Aspartate aminotransferase (AST) 22 U/L Invalid Interpretation Code 15-37 [facility] [employer] Work Phone: [phone] Bilirubin (direct) 0.18 mg/dL Invalid Interpretation Code 0.00-0.30 [facility] Work Phone: [phone] Bilirubin (total) 0.70 mg/dL Invalid Interpretation Code 0.20-1.00 [employer] Phone: [phone] Globulin 3.3 g/dL Invalid Interpretation Code 2.2-4.2 [facility] Work Phone: [phone] Protein 7.6 g/dL Invalid Interpretation Code 6.4-8.2 [facility] Work Phone: Vital Signs Date Time Vital Sign Value Performing Clinician Patrick myers 04-13-2025 11:00-0400 Body height 157.[address] Caridad Carrera DO Work Phone: [facility] 04-13-2025 11:00-0400 Body mass index (BMI) [Ratio] 24.1 kg/m2 Dr. Caridad Carrera DO Work Phone: [facility] 04-13-2025 11:00-0400 Body temperature 97.8 [degF] Dr. Caridad Carrera DO Work Phone: [facility] 04-13-2025 11:00-0400 Body weight 59.[address] Caridad Carrera DO Work Phone: [facility] 04-13-2025 11:00-0400 Diastolic blood pressure 79 mm[Hg] Dr. Caridad Carrera DO Work Phone: [facility] 04-13-2025 11:00-0400 Heart rate 72 /min Dr. Caridad Carrera DO Work Phone: [facility] 04-13-2025 11:00-0400 Respiratory rate 16 /min Dr. Caridad Carrera DO Work Phone: [facility] 04-13-2025 11:00-0400 SaO2% (BldA) [Mass fraction] 98 % Dr. Caridad Carrera DO Work Phone: [facility] 04-13-2025 11:00-0400 Systolic blood pressure 135 mm[Hg] Dr. Caridad Carrera DO Work Phone: [facility] 10-13-2024 09:31-0400 Body height 157.[address] Caridad Carrera DO Work Phone: [facility] 10-13-2024 09:31-0400 Body mass index (BMI) [Ratio] 23.9 kg/m2 Dr. Caridad Carrera DO Work Phone: [facility] 10-13-2024 09:31-0400 Body temperature 98.2 [degF] Dr. Caridad Carrera DO Work Phone: [facility] 10-13-2024 09:31-0400 Body weight 59.[address] Caridad Carrera DO Work Phone: [facility] 10-13-2024 09:31-0400 Diastolic blood pressure 74 mm[Hg] Dr. Caridad Carrera DO Work Phone: [facility] 10-13-2024 09:31-0400 Heart rate 83 /min Dr. Caridad Carrera DO Work Phone: [facility] 10-13-2024 09:31-0400 Respiratory rate 17 /min Dr. Caridad Carrera DO Work Phone: [facility] 10-13-2024 09:31-0400 SaO2% (BldA) [Mass fraction] 97 % Dr. Caridad Carrera DO Work Phone: [facility] 10-13-2024 09:31-0400 Systolic blood pressure 138 mm[Hg] Dr. Caridad Carrera DO Work Phone: [facility] 08-12-2024 10:17-0500 Body mass index (BMI) [Ratio] 24.3 kg/m2 Dr. Caridad Carrera DO Work Phone: [facility] 08-12-2024 10:17-0500 Body weight 60.[address] Caridad Carrera DO Work Phone: [facility] 08-12-2024 10:17-0500 Diastolic blood pressure 70 mm[Hg] Dr. Caridad Carrera DO Work Phone: [facility] 08-12-2024 10:17-0500 Heart rate 59 /min Dr. Caridad Carrera DO Work Phone: [facility] 08-12-2024 10:17-0500 Respiratory rate 16 /min Dr. Caridad Carrera DO Work Phone: [facility] 08-12-2024 10:17-0500 Systolic blood pressure 138 mm[Hg] Dr. Caridad Carrera DO Work Phone: [facility] 07-01-2024 09:57-0500 Body mass index (BMI) [Ratio] 24.1 kg/m2 Dr. Caridad Carrera DO Work Phone: [facility] 07-01-2024 09:57-0500 Body temperature 97.7 [degF] Dr. Caridad Carrera DO Work Phone: [facility] 07-01-2024 09:57-0500 Body weight 59.[address] Caridad Carrera DO Work Phone: [facility] 07-01-2024 09:57-0500 Diastolic blood pressure 84 mm[Hg] Dr. Caridad Carrera DO Work Phone: [facility] 07-01-2024 09:57-0500 Heart rate 64 /min Dr. Caridad Carrera DO Work Phone: [facility] 07-01-2024 09:57-0500 Respiratory rate 14 /min Dr. Caridad Carrera DO Work Phone: [facility] 07-01-2024 09:57-0500 SaO2% (BldA) [Mass fraction] 99 % Dr. Caridad Carrera DO Work Phone: [facility] 07-01-2024 09:57-0500 Systolic blood pressure 132 mm[Hg] Dr. Caridad Carrera DO Work Phone: [facility] 06-05-2023 10:08-0500 Body height 157.[address] Caridad Carrera Work Phone: [facility] 06-05-2023 10:04-0500 Body mass index (BMI) [Ratio] 24.1 kg/m2 Dr. Caridad Carrera Work Phone: [facility] 06-05-2023 10:04-0500 Body weight 59.[address] Caridad Carrera Work Phone: [facility] 06-05-2023 10:04-0500 Diastolic blood pressure 72 mm[Hg] Dr. Caridad Carrera Work Phone: [facility] 06-05-2023 10:04-0500 Heart rate 61 /min Dr. Caridad Carrera Work Phone: [facility] 06-05-2023 10:04-0500 Respiratory rate 18 /min Dr. Caridad Carrera Work Phone: [facility] 06-05-2023 10:04-0500 SaO2% (BldA) [Mass fraction] 98 % Dr. Caridad Carrera Work Phone: [facility] 06-05-2023 10:04-0500 Systolic blood pressure 123 mm[Hg] Dr. Caridad Carrera Work Phone: [facility] Encounters Encounter Date Encounter Type Care Provider Facility Start: 05-18-2025 End: 05-18-2025 ambulatory Caridad Carrera Facility:[facility] Start: 05-12-2025 End: 05-16-2025 ambulatory DEREK GUERRIER DO Facility:[facility] Start: 05-12-2025 End: 05-16-2025 Encounter for general adult medical examination without abnormal findings DEREK GUERRIER DO Facility:[facility] Start: 05-12-2025 End: 05-16-2025 Outreach Lab DEREK GUERRIER DO [facility] Start: 04-14-2025 End: 04-14-2025 ambulatory DEREK GUERRIER DO Facility:[facility] Start: 04-14-2025 End: 04-14-2025 Patient encounter procedure DEREK GUERRIER DO [facility] Start: 04-13-2025 End: 04-13-2025 Patient encounter procedure Tara MORILLO -[facility] Work Phone: Start: 04-13-2025 End: 04-13-[address] Caridad Carrera DO Work Phone: [facility] Start: 03-25-2025 End: 03-25-2025 ambulatory DEREK GUERRIER DO Facility[facility] Start: 03-25-2025 End: 03-25-2025 Patient encounter procedure DEREK GUERRIER DO [facility] Start: 03-18-2025 End: 03-18-2025 ambulatory DEREK GUERRIER DO Facility[facility] Start: 03-18-2025 End: 03-18-2025 Patient encounter procedure DEREK GUERRIER DO [facility] Start: 02-10-2025 End: 02-10-2025 ambulatory DEREK GUERRIER DO [facility] Start: 02-10-2025 End: 02-10-2025 Patient encounter procedure DEREK GUERRIER DO [facility] Start: 01-22-2025 End: 01-23-2025 ambulatory DELMER BANKS MD Facility:[facility] Start: 01-22-2025 End: 01-23-2025 Observation DELMER BANKS MD [facility] Start: 01-09-2025 End: 01-09-2025 Admission to establishment SEBASTIAN GONZALEZ MD [facility] Start: 01-09-2025 End: 01-09-2025 ambulatory SEBASTIAN GONZALEZ MD [facility] Start: 11-26-2024 End: 11-26-2024 ambulatory NANCY MOORE MD Facility:[facility] Start: 11-26-2024 End: 11-26-2024 Patient encounter procedure NANCY MOORE MD [facility] Start: 10-22-2024 End: 10-22-[address] Caridad Carrera DO Work Phone: [facility] Work Phone: Start: 10-22-2024 End: 10-22-[address] Caridad Carrera DO -Laboratory, [place] Work Phone: Start: 10-22-2024 End: 10-22-2024 ambulatory Caridad Carrera Facility:[facility] Start: 10-13-2024 End: 10-13-2024 Patient encounter procedure Tara MORILLO -[facility] Work Phone: Start: 10-13-2024 End: 10-13-2024 ambulatory Tara Whiteside Facility:[facility] Start: 08-12-2024 End: 08-12-[address] Ozzie Malave MD -[facility] Work Phone: Start: 08-12-2024 End: 08-12-2024 ambulatory Ozzie Malave Facility:[facility] Start: 07-01-2024 End: 07-01-2024 Patient encounter procedure Tara MORILLO -Laboratory, [place] Work Phone: Start: 07-01-2024 End: 07-01-[address] Maikol Jones MD -[facility] Work Phone: Start: 07-01-2024 End: 07-01-2024 [facility] Start: 07-01-2024 End: 07-01-2024 ambulatory Tara Whiteside Facility:[facility] Start: 05-27-2024 End: 05-27-2024 [facility]ulatory [facility] Facility[facility] Start: 12-21-2023 End: 12-21-2023 ambulatory CARIDAD CARRERA DO Facility:[facility] Start: 12-21-2023 End: 12-21-2023 Patient encounter procedure CARIDAD CARRERA DO [facility] Start: 11-22-2023 End: 11-22-2023 ambulatory [facility] Work Phone: Start: 11-22-2023 End: 11-22-2023 Patient encounter procedure [facility] Work Phone: Start: 07-04-2023 Non-patient / Non-visit Dr. Soco Carrera Work Phone: [facility] Work Phone: Start: 07-03-2023 Non-patient / Non-visit Dr. Soco Carrera Work Phone: [facility] Work Phone: Start: 07-02-2023 Non-patient / Non-visit Dr. Soco Carrera Work Phone: [facility] Start: 07-02-2023 End: 07-02-[address] Caridad Carrera Work Phone: [facility] Work Phone: Start: 07-02-2023 End: 07-02-[address] Caridad Carrera Work Phone: [facility] Work Phone: Start: 06-05-2023 End: 06-05-[address] Caridad Carrera Work Phone: [facility] Work Phone: Start: 06-05-2023 End: 06-05-[address] Caridad Carrera Work Phone: [facility] Work Phone: Start: 04-24-2023 End: 04-28-2023 ambulatory CARIDAD CARRERA DO Facility:[facility] Start: 11-06-2022 End: 11-06-2022 Patient encounter procedure CARIDAD CARRERA DO [facility] Start: 01-18-2022 End: 01-18-2022 Patient encounter procedure [facility] Start: 05-03-2021 End: 05-03-2021 Patient encounter procedure CARIDAD CARRERA DO [facility] Procedures Date Procedure Procedure Detail Performing Clinician Start: 01-18-2022 Screening mammography Start: 12-17-2020 Colonoscopy CARIDAD LEVY DO Comment on above: POLYPECTOMY Start: 03-23-2010 Colonoscopy CARIDAD CARBAJAL MILDRED DO Comment on above: 04/04/2010-normal Anterior colporrhaphy DELMER BANKS MD Appendectomy CARIDAD CALVILLOY DO Hemorrhoidectomy CARIDAD CAMACHO DO Comment on above: 1994 History of appendectomy S/P appendectomy SEBASTIAN GONZALEZ MD Hysterectomy and nia ateral salpingo-oophorectomy sample (specimen) CARIDAD CALVILLOY DO Comment on above: 2003 Plan of Treatment Date Care Activity Detail Author Ankle brachial pressure index [facility] Vitamin B6 measurement [facility] Work Phone: Immunizations Immunization Date Immunization Notes Care Provider [facility] 05-11-2024 influenza virus vacc ine, unspecified formulation DELMER BANKS MD [facility] 05-11-2024 SARS-CoV-2 (COVID-19 ) [id number] DELMER BANKS MD [facility] 05-06-2023 RSV vaccine preF3, recombinant DELMER BANKS MD [facility] 04-22-2023 influenza virus vacc ine, unspecified formulation DELMER BANKS MD [facility] 04-22-2023 SARS-CoV-2 (COVID-19 ) [id number] DELMER BANKS MD [facility] 04-23-2022 influenza virus vacc ine, unspecified formulation DELMER BANKS MD [facility] 04-23-2022 zoster vaccine recombinant DELMER BANKS MD [facility] 10-23-2021 SARS-CoV-2 mRNA (eauufityhqj-gmka-jgnwhb e) vaccine CARIDAD PANDYASAY DO [facility] 10-23-2021 zoster vaccine recombinant CARIDAD CARRERA DO [facility] 04-24-2021 SARS-CoV-2 mRNA (tozinameran) vaccine CARIDAD TETO DO [facility] 04-10-2021 influenza virus vacc ine, unspecified formulation DELMER BANKS MD [facility] 10-14-2020 Covid (Pfizer) [place] [facility] 09-23-2020 Covid (Pfizer) [place] [facility] Comment on above: Result Comment: 2021: [id number] 04-16-2020 influenza virus vacc ine, unspecified formulation CARIDAD CARRERA DO [facility] 04-24-2019 influenza virus vacc ine, unspecified formulation CARIDAD CARRERA DO [facility] Comment on above: Result Comment: [facility] 05-10-2018 influenza virus vacc ine, unspecified formulation CARIDAD CARRERA DO [facility] 05-03-2017 influenza virus vacc ine, unspecified formulation CARIDAD CARRERA DO [facility] 05-03-2017 pneumococcal polysaccharide vaccine, 23 valent CARIDAD CARRERA DO [facility] 04-22-2016 influenza virus vacc ine, unspecified formulation CARIDAD CARRERA DO [facility] 04-27-2015 influenza virus vacc ine, unspecified formulation CARIDAD CARRERA DO [facility] 04-27-2015 tetanus toxoid, redu jason diphtheria toxoid, and acellular pertussis vaccine, adsorbed CARIDAD CARRERA DO [facility] 11-10-2014 pneumococcal conjuga te vaccine, 13 valent CARIDAD CARRERA DO [facility] 05-07-2013 influenza virus vacc ine, unspecified formulation CARIDAD CARRERA DO [facility] 05-07-2012 influenza virus vacc ine, unspecified formulation CARIDAD CARRERA DO [facility] Payers Date Payer Category Payer Private Health Insurance [id number] 2024 Unknown [id number] 2024 Self-pay [id number] 2023 Private Health Insurance [facility] [id number] 2016 Unknown [id number] 2016 Unknown [id number] 1945 Unknown [id number] .16.8 40.1.318089.3.579.2.62 1945 Unknown [id number] ..[id number] 40.1.278478.3.579.2. 1945 Unknown [id number] 2.16. 840.1.295331.3.579.2. 1945 Unknown [id number] 2.. 840.1.207257.3.579.2.62 1945 Unknown [id number] 2.16. 840.1.539731.3.579.2.62 1945 Unknown [id number] 2.16. 840.1.603563.3.579.2.62 1945 Unknown [id number] 2.16. 840.1.475095.3.579.2.62 1945 Unknown [id number] 2.16. 840.1.924624.3.579.2.62 1945 Unknown [id number] 2.16. 840.1.919077.3.579.2. 1945 Unknown [id number] .16.8 40.1.883883.3.579.2.627 Medicare [id number] Unknown [id number] .16.8 40.1.282533.3.579.2.462 Unknown [id number] 2.16.8 40.1.761091.3.579.2.462 Unknown [id number] 2.16.8 40.1.735874.3.579.2.462 Unknown [id number] 2.16.8 40.1.288556.3.579.2.462 Unknown [id number] 2.16.8 40.1.776633.3.579.2.462 Unknown [id number] 2.16.8 40.1.607379.3.579.2.462 Unknown [id number] 2.16.8 40.1.251830.3.579.2.462 Unknown [id number] 2.16.8 40.1.420767.3.579.2.462 Social History Date Type Detail Facility Start: 05-23-2021 End: 06-05-2023 Tobacco smoking status NHIS Unknown if ever smoked [facility] Start: 1945 Sex Assigned At Female [facility] Start: 04-29-2019 End: 04-13-2025 Never smoked tobacco (finding) [facility] Start: 01-15-2019 End: 10-25-2024 Sex Female (finding) [facility] Sexual Orientation [facility] Sex Female [facility] Clinical Notes 07-01-2024 to 04-13-2025 Note Date & Type Note Facility 04-13-2025 Progress note [facility] 03-25-2025 Note Exam Date Time Procedure Performing Provider Status 03/25/25 8:25 AM US Abdomen KING Lerma MD; [facility] (Verified) [id number] ORIGINAL EXAMINATION: COMPLETE ABDOMINAL ULTRASOUND03/25/2025 8:32 am ULTRASOUND ABDOMEN COMPLETE, TECHNIQUE: This report is based on interpretation of permanently recorded ultrasound images. COMPARISON: Ultrasound 05/03/2021 HISTORY: ORDERING SYSTEM PROVIDED HISTORY: Reason for Exam: abdominal pain since , eval for gallbladder or other causes in RUQ and RLQ. S/p appendectomy and oopherectomy, FINDINGS: Liver: The visualized liver is normal in size and echogenicity. No suspicious focal liver lesion is seen. There is antegrade blood flow in the main portal vein. Bile ducts: There is no intrahepatic bile duct dilatation. The common duct is 3 mm at the peter hepatis. Gallbladder: Moderately distended with multiple calculi. No abnormal wall thickening. Negative sonographic Serrano's sign.. Pancreas: The visualized pancreas shows no focal lesion or mass but some portions are obscured by bowel gas artifacts. Spleen: Normal in size and echogenicity. No ascites. Limited survey images of the kidneys show normal cortical thickness and echogenicity and no pelvocaliectasis. . Visualized aorta: Atherosclerotic changes. No aneurysm is seen. Upper IVC: Normal IMPRESSION: Previously known gallstones without other secondary signs of acute cholecystitis. Interpreted by: King Kent MD Preliminary Report By: King Kent MD Electronically signed By King Kent MD Dictated Date: 03/25/2025 9:11:26 AM Prelim Date: 03/25/2025 9:15:35 AM Sign Date: 03/25/2025 9:15:35 AM Ordering Provider: [place] [id number] Note. MICRO - Microbiology PROCEDURE: Urine Culture [*1] SOURCE: Urine, Mcmillan Catheter BODY SITE: COLLECTED DATE/TIME: 01/22/2025 12:44 EDT RECEIVED DATE/TIME: 01/22/2025 15:27 EDT START DATE/TIME: 01/22/2025 15:27 EDT FREE TEXT SOURCE: FINAL REPORTS Final Report [] Verified Date/Time/Personnel: 01/24/2025 07:55 EDT >100,000 cfu/ml Klebsiella oxytoca Raoultella ornithinolytica PRELIMINARY REPORTS Preliminary Report [] Verified Date/Time/Personnel: 01/23/2025 11:32 EDT >100,000 cfu/ml Klebsiella oxytoca Raoultella ornithinolytica SONNY to follow Preliminary Report [] Verified Date/Time/Personnel: 01/22/2025 15:59 EDT Specimen received in lab. SUSCEPTIBILITY RESULTS Klebsiella oxytoca Raoultella ornithinolytica Antibiotic SONNY Dilut SONNY Inter Ampicillin >16 Resistant Ampicillin/ >16/8 Resistant Sulbactam Aztreonam >16 Resistant Cefazolin >16 Resistant Cefepime >16 Resistant Ceftriaxone >32 Resistant Cefuroxime >16 Resistant Ciprofloxacin <=0.25 Susceptible Ertapenem <=0.5 Susceptible Gentamicin <=2 Susceptible ID Panel Not Not Applicable Applicable Imipenem <=1 Susceptible Levofloxacin <=0.5 Susceptible Meropenem <=1 Susceptible Minocycline <=4 Susceptible Nitrofurantoin <=32 Susceptible Piperacillin/ >64 Resistant Tazobactam Trimethoprim/ <=0.5/9.5 Susceptible Sulfa Performing Locations *1: This test was performed at: [facility] [place], [address] [place] [address], [id number] , [facility]07-04-2025 Hospital Discharge instructions Patient Education 01/23/2025 09:06:21 Indwelling Urinary Catheter Care, Adult, [id number] Indwelling Urinary Catheter Care, Adult An indwelling urinary catheter is a thin tube that is put into your bladder. The tube helps to drain pee (urine) out of your body. The tube goes in through your urethra. Your urethra is where pee comes out of your body. Your pee will come out through the catheter, then it will go into a bag (drainage bag). Take good care of your catheter so it will work well. How to wear your catheter and bag Supplies needed Sticky tape (adhesive tape) or a leg strap. Alcohol wipe or soap and water (if you use tape). A clean towel (if you use tape). Large overnight bag. Smaller bag (leg bag). Wearing your catheter Attach your catheter to your leg with tape or a leg strap. Make sure the catheter is not pulled tight. If a leg strap gets wet, take it off and put on a dry strap. If you use tape to hold the bag on your le.Use an alcohol wipe or soap and water to wash your skin where the tape made it sticky before. 2.Use a clean towel to pat-dry that skin. 3.Use new tape to make the bag stay on your leg. Wearing your bags You should have been given a large overnight bag. You may wear the overnight bag in the day or night. Always have the overnight bag lower than your bladder. Do not let the bag touch the floor. Before you go to sleep, put a clean plastic bag in a wastebasket. Then hang the overnight bag inside the wastebasket. You should also have a smaller leg bag that fits under your clothes. Always wear the leg bag below your knee. Do not wear your leg bag at night. How to care for your skin and catheter Supplies needed A clean washcloth. Water and mild soap. A clean towel. Caring for your skin and catheter Clean the skin around your catheter every day: 1.Wash your hands with soap and water. 2.Wet a clean washcloth in warm water and mild soap. 3.Clean the skin around your urethra. ?If you are female: ?Gently spread the folds of skin around your vagina (labia). ?With the washcloth in your other hand, wipe the inner side of your labia on each side. Wipe from front to back. ?If you are male: ?Pull back any skin that covers the end of your penis (foreskin). ?With the washcloth in your other hand, wipe your penis in small circles. Start wiping at the tip of your penis, then move away from the catheter. ?Move the foreskin back in place, if needed. 4.With your free hand, hold the catheter close to where it goes into your body. ?Keep holding the catheter during cleaning so it does not get pulled out. 5.With the washcloth in your other hand, clean the catheter. ?Only wipe downward on the catheter. ?Do not wipe upward toward your body. Doing this may push germs into your urethra and cause infection. 6.Use a clean towel to pat-dry the catheter and the skin around it. Make sure to wipe off all soap. 7.Wash your hands with soap and water. Shower every day. Do not take baths. Do not use cream, ointment, or lotion on the area where the catheter goes into your body, unless your doctor tells you to. Do not use powders, sprays, or lotions on your genital area. Check your skin around the catheter every day for signs of infection. Check for: ?Redness, swelling, or pain. ?Fluid or blood. ?Warmth. ?Pus or a bad smell. How to empty the bag Supplies needed Rubbing alcohol. Gauze pad or cotton ball. Tape or a leg strap. Emptying the bag Pour the pee out of your bag when it is ? full, or at least 2 3 times a day. Do this for your overnight bag and your leg bag. 1.Wash your hands with soap and water. 2.Separate (detach) the bag from your leg. 3.Hold the bag over the toilet or a clean pail. Keep the bag lower than your hips and bladder. Thisis so the pee (urine) does not go back into the tube. 4.Open the pour spout. It is at the bottom of the bag. 5.Empty the pee into the toilet or pail. Do not let the pour spout touch any surface. 6.Put rubbing alcohol on a gauze pad or cotton ball. 7.Use the gauze pad or cotton ball to clean the pour spout. 8.Close the pour spout. 9.Attach the bag to your leg with tape or a leg strap. 10.Wash your hands with soap and water. Follow instructions for cleaning the drainage bag: From the product maker. As told by your doctor. How to change the bag Supplies needed Alcohol wipes. A clean bag. Tape or a leg strap. Changing the bag Replace your bag when it starts to leak, smell bad, or look dirty. 1.Wash your hands with soap and water. 2.Separate the dirty bag from your leg. 3.Pinch the catheter with your fingers so that pee does not spill out. 4.Separate the catheter tube from the bag tube where these tubes connect (at the connection valve).Do not let the tubes touch any surface. 5.Clean the end of the catheter tube with an alcohol wipe. Use a different alcohol wipe to clean the end of the bag tube. 6.Connect the catheter tube to the tube of the clean bag. 7.Attach the clean bag to your leg with tape or a leg strap. Do not make the bag tight on your leg. 8.Wash your hands with soap and water. General rules Never pull on your catheter. Never try to take it out. Doing that can hurt you. Always wash your hands before and after you touch your catheter or bag. Use a mild, fragrance-free soap. If you do not have soap and water, use hand oven technician. Always make sure there are no twists or bends (kinks) in the catheter tube. Always make sure there are no leaks in the catheter or bag. Drink enough fluid to keep your pee pale yellow. Do not take baths, swim, or use a hot tub. If you are female, wipe from front to back after you poop (have a bowel movement). Contact a doctor if: Your pee is cloudy. Your pee smells worse than usual. Your catheter gets clogged. Your catheter leaks. Your bladder feels full. Get help right away if: You have redness, swelling, or pain where the catheter goes into your body. You have fluid, blood, pus, or a bad smell coming from the area where the catheter goes into your body. Your skin feels warm where the catheter goes into your body. You have a fever. You have pain in your: ?Belly (abdomen). ?Legs. ?Lower back. ?Bladder. You see blood in the catheter. Your pee is pink or red. You feel sick to your stomach (nauseous). You throw up (vomit). You have chills. Your pee is not draining into the bag. Your catheter gets pulled out. Summary An indwelling urinary catheter is a thin tube that is placed into the bladder to help drain pee (urine) out of the body. The catheter is placed into the part of the body that drains pee from the bladder (urethra). Taking good care of your catheter will keep it working properly and help prevent problems. Always wash your hands before and after touching your catheter or bag. Never pull on your catheter or try to take it out. This information is not intended to replace advice given to you by your health care provider. Make sure you discuss any questions you have with your health care provider. Document Released: 11/03/2013 Document Revised: 10/31/2019 Document Reviewed: 02/22/2018 [employer] Patient Education 2020 [employer] 01/23/2025 08:56:32 Anterior and Posterior Colporrhaphy, Care After Anterior and Posterior Colporrhaphy, Care After This sheet gives you information about how to care for yourself after your procedure. Your health care provider may also give you more specific instructions. If you have problems or questions, contact your health care provider. What can I expect after the procedure? After the procedure, it is common to have: Pain in the surgical area. Vaginal spotting and discharge. You will need to use a sanitary pad during this time. Fatigue. Follow these instructions at home: Incision care Follow instructions from your health care provider about how to take care of your incision. Make sure you: ?Wash your hands with soap and water before touching the incision area. If soap and water are not available, use hand oven technician. ?Clean your incision as told by your health care provider. ?Leave stitches (sutures), skin glue, or adhesive strips in place. These skin closures may need to stay in place for 2 weeks or longer. If adhesive strip edges start to loosen and curl up, you may trim the loose edges. Do not remove adhesive strips completely unless your health care provider tells you to do that. Check your incision area every day for signs of infection. Check for: ?Redness, swelling, or pain. ?Fluid or blood. ?Warmth. ?Pus or a bad smell. Check your incision every day to make sure the incision area is not or opening up. Do not take baths, swim, or use a hot tub until your health care provider approves. You may shower. Keep the area between your vagina and rectum (perineal area) clean and dry. Make sure you clean thearea after every bowel movement and each time you urinate. Ask your health care provider if you can take a sitz bath or sit in a tub of clean, warm water. Activity Take frequent, short walks followed by rest periods throughout the day. Avoid activities that take a lot of effort (are strenuous). Do not lift anything that is heavier than 10 lb (4.5 kg), or the limit that your health care provider tells you, until he or she says that it is safe. Avoid pushing or pulling motions. Avoid standing for long periods of time. Do not douche, use tampons, or have sex until your health care provider says it is okay. Return to your normal activities as told by your health care provider. Ask your health care provider what activities are safe for you. Do not drive until your health care provider approves. To prevent constipation To prevent or treat constipation while you are taking prescription pain medicine, your health care provider may recommend that you: Take yncg-fgx-davnqva or prescription medicines. Eat foods that are high in fiber, such as fresh fruits and vegetables, whole grains, and beans. Drink enough fluid to keep your urine clear or pale yellow. Limit foods that are high in fat and processed sugars, such as fried and sweet foods. General instructions Take awek-jgo-ucrrckl and prescription medicines only as told by your health care provider. You may be instructed to do pelvic floor exercises (kegels) as told by your health care provider. Do not drive or use heavy machinery while taking prescription pain medicine. Wear compression stockings as told by your health care provider. These stockings help to prevent blood clots and reduce swelling in your legs. Keep all follow-up visits as told by your health care provider. This is important. Contact a health care provider if: Medicine does not help your pain. You have frequent or urgent urination, or you are unable to completely empty your bladder. You feel a burning sensation when urinating. You have pus or a bad smell coming from your vaginal area. You have redness, swelling, or increasing pain in the vaginal area. Get help right away if: You have increased bleeding from the vaginal area. You cannot urinate. You have a fever or chills. Your incision separates or opens. You have trouble breathing. Summary After the procedure, it is common to have pain, fatigue, spotting, and discharge from the vagina. Keep the area between your vagina and rectum (perineal area) clean and dry. Make sure you clean thearea after every bowel movement and each time you urinate. Follow instructions from your health care provider about any activity restrictions after the procedure. This information is not intended to replace advice given to you by your health care provider. Make sure you discuss any questions you have with your health care provider. Document Released: 01/25/2006 Document Revised: 06/21/2018 Document Reviewed: 08/16/2017 [employer] Patient Education 2020 [employer] 01/22/2025 23:10:28 Anterior and Posterior Colporrhaphy Anterior and Posterior Colporrhaphy Anterior or posterior colporrhaphy is surgery to fix a prolapse of organs in the genital tract. Prolapse is a condition in which an organ bulges or drops down from its normal position. Organs that commonly prolapse include the rectum, bladder, vagina, and uterus. Prolapse can affect a single organ or several organs at the same time. You may need this surgery if you have a severe prolapse that causes symptoms that interfere with your daily life and cannot be corrected with other treatments. Prolapse often worsens when women stop having their monthly periods (menopause) because estrogen loss weakens the muscles and tissues in the genital tract. Prolapse can also happen when the organs are damaged or weakened. This commonly happens after childbirth and as a result of aging. The type of colporrhaphy done depends on the type of genital prolapse. Types of genital prolapse include the following: Cystocele. This is a prolapse of the bladder and the upper part of the front (anterior) wall of thevagina. Rectocele. This is a prolapse of the rectum and the lower part of the back (posterior) wall of the vagina. Enterocele. This is a prolapse of the small intestine. It appears as a bulge under the neck of the uterus at the top of the back wall of the vagina. Procidentia. This is a complete prolapse of the uterus and the cervix. The prolapse can be seen andfelt coming out of the vagina. Tell a health care provider about: Any allergies you have. All medicines you are taking, including vitamins, herbs, eye drops, creams, and yjjk-zfq-rovtjrt medicines. Any problems you or family members have had with anesthetic medicines. Any blood disorders you have. Any surgeries you have had. Any medical conditions you have. Smoking history or history of alcohol use. Whether you are or may be . What are the risks? Generally, this is a safe procedure. However, problems may occur, including: Infection. Bleeding. Allergic reactions to medicines. Damage to other structures or organs. Problems urinating. Incontinence. Nerve damage. Painful sex. Constipation. A blood clot that travels to your lungs. What happens before the procedure? Staying hydrated Follow instructions from your health care provider about hydration, which may include: Up to 2 hours before the procedure you may continue to drink clear liquids, such as water, clear fruit juice, black coffee, and plain tea. Eating and drinking restrictions Follow instructions from your health care provider about eating and drinking, which may include: 8 hours before the procedure stop eating heavy meals or foods such as meat, fried foods, or fatty foods. 6 hours before the procedure stop eating light meals or foods, such as toast or cereal. 6 hours before the procedure stop drinking milk or drinks that contain milk. 2 hours before the procedure stop drinking clear liquids. General instructions Ask your health care provider about: ?Changing or stopping your regular medicines. This is especially important if you are taking diabetes medicines or blood thinners. ?Taking medicines such as aspirin and ibuprofen. These medicines can thin your blood. Do not take these medicines before your procedure if your health care provider instructs you not to. You may be given antibiotics to help prevent infection. You may be instructed to use estrogen cream in your vagina to help prevent complications and promote healing. Do not use any products that contain nicotine or tobacco, such as cigarettes and e-cigarettes, for at least 2 weeks before the procedure. If you need help quitting, ask your health care provider. Plan to have someone take you home from the hospital. Also, arrange for someone to help you with activities during recovery. What happens during the procedure? To lower your risk of infection: ?Your health care team will wash or sanitize their hands. ?Your skin will be washed with soap. ?Hair may be removed from the surgical area. An IV will be inserted into one of your veins. You will be given one or more of the following: ?A medicine to help you relax (sedative). ?A medicine to make you fall asleep (general anesthetic). You may be given antibiotics through your IV. You will lie down on the operating table with your feet in stirrups. A small, thin tube (catheter) will be inserted through your urethra into your bladder to drain urine during surgery and recovery. An instrument (vaginal speculum) will be used to hold your vagina open. Your health care provider will perform the procedure according to the type of repair you require: Anterior repair An incision will be made in the midline section of the front part of the vaginal wall. A triangular-shaped piece of vaginal tissue will be removed. The stronger, healthier tissue will be sewn together in order to support the bladder. These incisions may be closed with stitches (sutures). Gauze packing will be placed inside your vagina. Posterior repair An incision will be made midline on the back wall of the vagina. A triangular portion of vaginal skin will be removed to expose the muscle. Excess tissue will be removed, and stronger, healthier muscle and ligament tissue will be sewn together to support the rectum. These incisions may be closed with stitches (sutures). Gauze packing will be placed inside your vagina. Anterior and posterior repair Both procedures will be done during the same surgery. The procedure may vary among health care providers and hospitals. What happens after the procedure? Your blood pressure, heart rate, breathing rate, and blood oxygen level will be monitored until themedicines you were given have worn off. You will be given pain medicine as needed. You will have a small tube in place to drain your bladder (urinary catheter). This will be in placeuntil your bladder is working properly on its own. You may have a gauze packing in your vagina for a few days to prevent bleeding. You will start on a liquid diet and slowly move to a regular diet. You will be encouraged to get up and walk as soon as you are able. You may need to wear compression stockings. They help prevent blood clots and reduce swelling in your legs. Do not drive for 24 hours if you were given a sedative. Summary Anterior or posterior colporrhaphy is surgery to fix a prolapse of organs in the genital tract. The type of repair done depends on the type of prolapse that is present. Follow instructions from your health care provider about eating and drinking before the procedure. You will be given a general anesthetic to make you fall asleep during the procedure. This information is not intended to replace advice given to you by your health care provider. Make sure you discuss any questions you have with your health care provider. Document Released: 09/28/2004 Document Revised: 06/21/2018 Document Reviewed: 08/16/2017 [employer] Patient Education 2020 FetchBack. Follow Up Care 01/07/2025 08:39:44 With:DELMER BANKS MD Address: [address] [facility] [place], [place] [id number]- [phone] When:Within 3 Day(s) [facility] 07-04-2025 Note Discharge Instructions Thank you for allowing [facility] to assist you with your healthcare needs. The following is importantdischarge information regarding your hospital visit. Your Care Team Adithya Banks MD Your Diagnosis Cystocele, midline Enterocele Postmenopausal state Vaginal atrophy What to do next Scheduled Follow-Up Appointments Appointment Type When With Where Contact Information StatusPC Nurse Lab 05/12/2025 09:30 AM EDT [address] [phone] Confirmed [facility] Wellness Medicare 05/19/2025 09:30 AM EDT DEREK GUERRIER DO [address] [phone] Confirmed Follow Up Appointments Follow Up with DELMER BANKS MD When:In 3 days Where:[address] [facility] [address] [facility] [place] [phone] The Following Activity and Diet Have Been Ordered for You Discharge Activity - Ordered -- Sexual [place] Restricted Lifting Restricted less than 10 pounds May Shower Driving Restricted, 01/22/25 23:05:00 EDT Discharge Driving Restrictions - Ordered -- No driving until pain-free, 01/22/25 23:05:00 EDT Discharge Return to Work, School, or Sports - Ordered -- May return to: work, Return to normal activities in 6 weeks, 01/22/25 23:05:00 EDT Discharge Diet - Ordered -- 01/22/25 23:05:00 EDT The Following Treatments Have Been Ordered for You Discharge Labs No qualifying data available. Discharge Radiology No qualifying data available. Other Therapies No qualifying data available. Post Acute Orders No qualifying data available. Allergies lisinopril (Mild) Cough Percocet 10-325 Nausea Vicodin Nausea codeine Nausea Medications Please ask your primary doctor or pharmacist before taking any other medication not listed, including over the counter drugs, herbal medications, vitamins and or supplements as they may interact withyour home medications. What How Much When Instructions Last Dose New acetaminophen (acetaminophen 325 mg oral capsule) 650 Milligram by mouth Every 6 hours Pickup at [facility] New ibuprofen (IBU 600 mg oral tablet) 1 tab(s) by mouth Every 6 hours Pickup at [facility] Changed losartan (losartan 25 mg oral tablet) 1 tab(s) by mouth Once a day (in the morning) Unchanged dilTIAZem (Cartia XT 180 mg/ 24 hours oral capsule, extended release) 1 cap by mouth Once a day Unchanged magnesium oxide (magnesium oxide 400 mg oral tablet) 1 tab(s) by mouth Once a day Unchanged metFORMIN (metFORMIN 500 mg oral tablet (IR)) 1 tab(s) by mouth Once a day Unchanged multivitamin (Multivitamin) 1 tab(s) by mouth Every day Unchanged simvastatin (simvastatin 20 mg oral tablet) 1 tab(s) by mouth Daily at bedtime Pharmacy Information [facility] [address]: [address] [place], [place] [id number] [phone] What How Much When Why Comments Stop Taking estradiol (estradiol 0.5 mg oral tablet) 1 tab(s) by mouth Sunday / Sunday / Sunday Vaginal atrophy Please cancel previous Rx for Estrace cream Please take this list to your next doctor s visit. Bring all medications you take, including over the counter medications, herbals and other supplements with you to your doctor s visit. Patients and families are reminded to discard old lists and to update any records with all medication providers or retail pharmacies. Education Materials Anterior and Posterior Colporrhaphy Anterior or posterior colporrhaphy is surgery to fix a prolapse of organs in the genital tract. Prolapse is a condition in which an organ bulges or drops down from its normal position. Organs that commonly prolapse include the rectum, bladder, vagina, and uterus. Prolapse can affect a single organ or several organs at the same time. You may need this surgery if you have a severe prolapse that causes symptoms that interfere with your daily life and cannot be corrected with other treatments. Prolapse often worsens when women stop having their monthly periods (menopause) because estrogen loss weakens the muscles and tissues in the genital tract. Prolapse can also happen when the organs are damaged or weakened. This commonly happens after childbirth and as a result of aging. The type of colporrhaphy done depends on the type of genital prolapse. Types of genital prolapse include the following: Cystocele. This is a prolapse of the bladder and the upper part of the front (anterior) wall of thevagina. Rectocele. This is a prolapse of the rectum and the lower part of the back (posterior) wall of the vagina. Enterocele. This is a prolapse of the small intestine. It appears as a bulge under the neck of the uterus at the top of the back wall of the vagina. Procidentia. This is a complete prolapse of the uterus and the cervix. The prolapse can be seen andfelt coming out of the vagina. Tell a health care provider about: Any allergies you have. All medicines you are taking, including vitamins, herbs, eye drops, creams, and gbiu-jmy-zofcela medicines. Any problems you or family members have had with anesthetic medicines. Any blood disorders you have. Any surgeries you have had. Any medical conditions you have. Smoking history or history of alcohol use. Whether you are or may be . What are the risks? Generally, this is a safe procedure. However, problems may occur, including: Infection. Bleeding. Allergic reactions to medicines. Damage to other structures or organs. Problems urinating. Incontinence. Nerve damage. Painful sex. Constipation. A blood clot that travels to your lungs. What happens before the procedure? Staying hydrated Follow instructions from your health care provider about hydration, which may include: Up to 2 hours before the procedure you may continue to drink clear liquids, such as water, clear fruit juice, black coffee, and plain tea. Eating and drinking restrictions Follow instructions from your health care provider about eating and drinking, which may include: 8 hours before the procedure stop eating heavy meals or foods such as meat, fried foods, or fatty foods. 6 hours before the procedure stop eating light meals or foods, such as toast or cereal. 6 hours before the procedure stop drinking milk or drinks that contain milk. 2 hours before the procedure stop drinking clear liquids. General instructions Ask your health care provider about: ? Changing or stopping your regular medicines. This is especially important if you are taking diabetes medicines or blood thinners. ? Taking medicines such as aspirin and ibuprofen. These medicines can thin your blood. Do not take these medicines before your procedure if your health care provider instructs you not to. You may be given antibiotics to help prevent infection. You may be instructed to use estrogen cream in your vagina to help prevent complications and promote healing. Do not use any products that contain nicotine or tobacco, such as cigarettes and e-cigarettes, for at least 2 weeks before the procedure. If you need help quitting, ask your health care provider. Plan to have someone take you home from the hospital. Also, arrange for someone to help you with activities during recovery. What happens during the procedure? To lower your risk of infection: ? Your health care team will wash or sanitize their hands. ? Your skin will be washed with soap. ? Hair may be removed from the surgical area. An IV will be inserted into one of your veins. You will be given one or more of the following: ? A medicine to help you relax (sedative). ? A medicine to make you fall asleep (general anesthetic). You may be given antibiotics through your IV. You will lie down on the operating table with your feet in stirrups. A small, thin tube (catheter) will be inserted through your urethra into your bladder to drain urine during surgery and recovery. An instrument (vaginal speculum) will be used to hold your vagina open. Your health care provider will perform the procedure according to the type of repair you require: Anterior repair An incision will be made in the midline section of the front part of the vaginal wall. A triangular-shaped piece of vaginal tissue will be removed. The stronger, healthier tissue will be sewn together in order to support the bladder. These incisions may be closed with stitches (sutures). Gauze packing will be placed inside your vagina. Posterior repair An incision will be made midline on the back wall of the vagina. A triangular portion of vaginal skin will be removed to expose the muscle. Excess tissue will be removed, and stronger, healthier muscle and ligament tissue will be sewn together to support the rectum. These incisions may be closed with stitches (sutures). Gauze packing will be placed inside your vagina. Anterior and posterior repair Both procedures will be done during the same surgery. The procedure may vary among health care providers and hospitals. What happens after the procedure? Your blood pressure, heart rate, breathing rate, and blood oxygen level will be monitored until themedicines you were given have worn off. You will be given pain medicine as needed. You will have a small tube in place to drain your bladder (urinary catheter). This will be in placeuntil your bladder is working properly on its own. You may have a gauze packing in your vagina for a few days to prevent bleeding. You will start on a liquid diet and slowly move to a regular diet. You will be encouraged to get up and walk as soon as you are able. You may need to wear compression stockings. They help prevent blood clots and reduce swelling in your legs. Do not drive for 24 hours if you were given a sedative. Summary Anterior or posterior colporrhaphy is surgery to fix a prolapse of organs in the genital tract. The type of repair done depends on the type of prolapse that is present. Follow instructions from your health care provider about eating and drinking before the procedure. You will be given a general anesthetic to make you fall asleep during the procedure. This information is not intended to replace advice given to you by your health care provider. Make sure you discuss any questions you have with your health care provider. Document Released: 09/28/2004 Document Revised: 06/21/2018 Document Reviewed: 08/16/2017 [employer] Patient Education 2020 FetchBack. Additional Information VACCINATE! IT SAVES LIVES! Members of the community who have not yet received the COVID-19 vaccine and would like to receive it can visit one of [facility] vaccine clinics. There are many vaccine clinic locations within the [facility]. For locations and available times, please visit [email or web address].gov/. It is important to note that some COVID mobile vaccine clinics are held outdoors and may be canceled in rainy or stormy conditions. To learn more about pediatric vaccinations (ages 5-11), we invite you to visit the [facility] webpage. [email or web address].[email or web address]/[email or web address]-Pzhmjryugu-[email or web address] [email or web address] learn more about the COVID-19 vaccine, we invite you to visit the CDC website for a list of frequently asked questions.https://www.cdc.gov/coronavirus/2019-ncov/vaccines/faq.html [facility] Patient Portal Access Instructions: Stay connected with your healthcare team and access your personal medical information anytime with the [facility] Patient Portal. Please follow the directions below to create your [facility] account: 1.Access the email account you provided upon registration to the hospital/physician office.2.Look for an invitation email from [facility].3.Open the email and access the invitation link: AcceptInvitation to [facility].4.Fill in the required soliman to create your account. To access your account, visit [employer]. Click the blue button labeled Access Patient Portal and then log in with the username and password that you created in the steps above. You will be able to view your test results, lab results, a summary of your visits, upcoming appointments and more. There is also a convenient messaging option where you can send secure messages to your p rovider. In addition, you will have the ability to download any documents or summaries to your computer and/or send the information securely to a physician. Remember that your healthcare information is confidential, so carefully consider who you will allowto register on the [facility] Patient Portal for access to your information. You can also access the [facility] Patient Portal on the [facility] sofie. Simply click on Patient Portal and then log into your account. If you would like to receive a full copy of your medical records, please contact the [facility] Medical Records Department by calling [phone], Sunday through Sunday between 8 a.m. and 4:30 p.m. HOW TO SAFELY DISPOSE OF PRESCRIPTION MEDICATIONS Please use one of the following methods to safely dispose of your unused medications. 1.Use a drug disposal kit: the drug disposal pouch allows you to safely discard your old and unuseddrugs. Ask your nurse to give you one when you are discharged.2.Visit a local take-back location: Many local pharmacies and police departments have programs that collect old and unwanted prescriptiondrugs. Call your local pharmacy or go to http://[employer].Ohlalapps/3E2Ts7v to find one close to you.3.Make use of household items: Use cat litter or old coffee grounds to dispose medications if other options arenot available. Mix your drugs with these household products, seal them in an airtight container andthrow it into the garbage. Call [facility]: [phone] to be sure your drugs can be disposed of in this way. Some medicines may require a different approach.4.Never flush your medications down the toilet. IF YOU HAVE BEEN PRESCRIBED AN OPIOID FOR PAIN If you have been prescribed an opioid (such as hydrocodone, oxycodone or morphine), it is critical to understand the possible side effects and risks of opioid pain medications. Even when taken as directed, opioids can have several side effects including: Tolerance, meaning you might need to take more of a medication for the same pain relief. Nausea, vomiting and/or constipation. Sleepiness, dizziness, dry mouth, confusion, depression or itching. Physical dependence, meaning you have withdrawal symptoms when a medication is stopped, can develop within a few days. KNOW YOUR RESPONSIBILITIES It is important to know exactly how much and how often to take the opioid pain medications you are prescribed. Never take opioids in higher amounts or more often than prescribed. Do not combine opioids with alcohol or other drugs that cause drowsiness, such as benzodiazepines, also known as benzos, including diazepam and alprazolam, muscle relaxants or sleep aids. Never sell or share prescription opioids. This is illegal. Store opioids in a secure place and out of reach of others (including children, family, friends and visitors). The last page of this document has been signed and retained as a CHART COPY. Signatures Patient Education Materials Anterior and Posterior Colporrhaphy Medication Leaflets My discharge plan and instructions have been reviewed and explained to me and I,MATT CASTILLO understand my current condition and have read and understand these discharge instructions. I have received a written copy of the plan/instructions. If I have questions, I am aware that I should contactmy doctor. 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 Trying to sleep some pressure from vaginal packing Tolerated dinner tonight Objective Looks very well and comfortable Abdomen soft, non tender [place]millan draining clear VITALS CbbedjGngeCCDldbtXIPjF0SQA6ButaNx(kg) 01/22 19:32 58.7 01/22 18:5336.6--[id number]/03 58.7 01/22 15:0436.8--[id number] 01/22 14:50----[id number] 01/22 14:24----[id number] 24 Hr Tmax: 36.8 at 01/22 15:04 36 Hr Tmax: 36.8 at 01/22 15:04 Vital Signs are the last 5 in the past 48 hours. Weights display the last 5 within 7 days. Initial Wt: 01/22 58.7 kg 129 lb Current Wt: 01/22 58.7 kg 129 lb LABS 01/22 11:22 Glucose Level: 91 Sodium Level: 138 Potassium Level: 4.1 BUN: 16 Creatinine Lvl (s): 0.87 Medications Active Inpt Meds: acetaminophen Start: 01/22/25 19:00:00 EDT, Dose = 650 mg, = 2 tab(s), Oral, q6hr, 0, 01/22/25 13:58:00 EDT dilTIAZem (Cartia XT) Start: 01/22/25 17:57:00 EDT, Dose = 180 mg, = 1 cap(s), Oral, qDay, 0, 01/22/25 16:52:00 EDT ibuprofen (Motrin) Start: 01/22/25 16:00:00 EDT, Dose = 600 mg, = 1 tab(s), Oral, q6h, 0, 01/22/25 13:58:00 EDT losartan Start: 01/23/25 9:00:00 EDT, Dose = 25 mg, = 1 tab(s), Oral, qAM, 0, 01/22/25 17:59:00 EDT metFORMIN (metFORMIN 500 mg oral tablet (IR)) Start: 01/22/25 17:58:00 EDT, Dose = 500 mg, = 1 tab(s), Oral, qDay, 0, 01/22/25 16:52:00 EDT Active PRN Meds: docusate (Colace) Start: 01/22/25 13:58:00 EDT, Dose = 100 mg, = 1 cap(s), Oral, BID, PRN, Constipation, 0, 01/22/25 13:58:00 EDT magnesium hydroxide (Milk of Magnesia) Start: 01/22/25 13:58:00 EDT, Dose = 30 mL, Susp-Oral, Oral, Once, PRN, Constipation, 0, 01/22/25 13:58:00 EDT morphine Start: 01/22/25 14:01:00 EDT, Dose = 1 mg, = 0.5 mL, IV Push, q3h, PRN, Pain, scale 7-10, 0, 01/22/25 14:01:00 EDT ondansetron (Zofran) Start: 01/22/25 13:58:00 EDT, Dose = 4 mg, = 2 mL, IV Push, q6h, PRN, Nausea/Vomiting, 0, 01/22/25 13:58:00 EDT prochlorperazine Start: 01/22/25 13:58:00 EDT, Dose = 5 mg, = 1 mL, IV Push, q6h, PRN, Nausea/Vomiting, 0, 01/22/25 13:58:00 EDT simethicone (Mylicon) Start: 01/22/25 13:58:00 EDT, Dose = 80 mg, = 1 tab(s), Chewed, QID, PRN, Dyspepsia, 0, 01/22/25 13:58:00 EDT One Time Meds: (Completed) acetaminophen (Ofirmev IVPB (ANES)) IV Piggyback, Once, Stop: 01/22/25 12:47:00 EDT (Completed) dexAMETHasone (Decadron (ANES)) IV Push, Once, Stop: 01/22/25 12:47:00 EDT (Completed) fentaNYL (Sublimaze (ANES)) IV Push, Once, Stop: 01/22/25 12:42:00 EDT (Completed) lidocaine (Xylocaine 2% 5 mL syringe (ANES) (ANES)) IV Push, Once, Stop: 01/22/25 12:47:00 EDT (Completed) ondansetron (Zofran (ANES)) IV Push, Once, Stop: 01/22/25 13:32:00 EDT (Completed) propofol (propofol (ANES)) IV Push, Once, Stop: 01/22/25 12:47:00 EDT Active IV Meds: Lactated Ringers Infusion 1,000 mL (LR 1,000 mL) Start: 01/22/25 13:58:00 EDT, Rate: 50 mL/hr, 01/22/25 13:58:00 EDT Problems (17) At risk for CAD d/t DM, statin therapy on board (1663074409) Cholelithiases (140501289) Cystocele, midline (0980745802) Essential hypertension (34540595) History of colonoscopy with polypectomy 2020 (adenoma), next 4-5 year (5510049964) Hyperlipidemia (284812433) Hyponatremia, 128-129 not uncommon. Neph on board (395150216) Nausea in adult (0186444717) Osteoarthritis (1328240628) Osteoporosis screening, dexa norm 05/2024 (350445782) Postmenopausal state (893668316) Proteinuria (44001334) Right lower quadrant abdominal pain (945785307) S/P appendectomy (7272691294) S/P total hysterectomy and bilateral salpingo-oophorectomy (3641301881) Type 2 diabetes mellitus without complication (931470669) Vaginal atrophy (171184123) ASSESSMENT/PLAN: Operative date for anterior repair Tolerating regular diet, good pain control Will discharge in am after removal of vaginal packing. Extracted from: Title:Clinical Document Author:DELMER BANKS MD Date:01/22/25 History and Physical Update I have examined the patient; reviewed the H&P and there are no changes to the H&P unless noted below. Chatted with patient pre-operatively and she understands the posterior repair will only be done if deemed necessary at the time of surgery. Future Appointments Appointment Date:05/12/2025 09:30:00 AM Scheduled Provider: Location:[facility] Appointment Type: Nurse Lab Appointment Date:05/19/2025 09:30:00 AM Scheduled Provider:DEREK GUERRIER DO Location:[facility] Appointment Type: Wellness Medicare Future Scheduled Tests Laboratory* TSH with Reflex to FT4 01/06/25 * A1C Hemoglobin 01/06/25 * Complete Blood Count 01/06/25 * Vitamin D Level 01/06/25 * Complete Metabolic Panel 01/06/25 Radiology* MA Mammo Screening Bilateral w/ Wong 01/07/25 * BD Bone Density DEXA Axial Skeleton Adult (21 yrs or older) 04/22/24 [facility] 07-03-2025 Note History and Physical Update I have examined the patient; reviewed the H&P and there are no changes to the H&P unless noted below. Chatted with patient pre-operatively and she understands the posterior repair will only be done if deemed necessary at the time of surgery. Digitally Signed by DELMER BANKS MD on 01/22/2025 12:05 PM [facility]07-03-2025 Anesthesiology Consult note Patient: MATT CASTILLO Age: 79 years Sex: Female : 1945 Associated Diagnoses: None Author: MEAGHAN ZEE APRN-MILA Preoperative Information Anesthesia history Patient's history: negative. Family's history: negative. Health Status Allergies: Allergic Reactions (Selected) Severity Not Documented Codeine- Nausea. Percocet 10-325- Nausea. Vicodin- Nausea. Nonallergic Reactions (Selected) Mild Lisinopril- Cough., Allergies (4) ActiveSeverityReaction lisinoprilMildCough codeineNausea Percocet 10-325Nausea VicodinNausea Current medications: (Selected) Inpatient Medications Ordered LR 1,000 mL: 20 mL/hr, Intravenous, Stop: 01/22/25 23:59:00 EDT Mefoxin: 2 gram(s), 200 mL/hr, IV Piggyback, PREOP pharm Prescriptions Prescribed estradiol 0.5 mg oral tablet: 0.5 mg, 1 tab(s), Oral, Sun/Sun/Sun, Please cancel previous Rx for Estrace cream, 39 tab(s), 3 Refill(s) metFORMIN 500 mg oral tablet (IR): 500 mg, 1 tab(s), Oral, qDay, 90 tab(s), 3 Refill(s) simvastatin 20 mg oral tablet: 20 mg, 1 tab(s), Oral, qHS, 90 tab(s), 3 Refill(s) Documented Medications Documented Cartia XT 180 mg/24 hours oral capsule, extended release: 180 mg, 1 cap(s), Oral, qDay, 90 cap(s), 0 Refill(s) Multivitamin: 1 tab(s), Oral, Daily, 0 Refill(s) losartan 25 mg oral tablet: TAKE 1 TABLET BY MOUTH ONCE DAILY IN THE MORNING magnesium oxide 400 mg oral tablet: mg, tab(s), Oral, qDay, 0 Refill(s), Medications (2) Active Scheduled: (1) ceFOXitin 2 gram(s), IV Piggyback, PREOP pharm Continuous: (1) Lactated Ringers 1,000 mL 1,000 mL, Intravenous, 20 mL/hr PRN: (0) Problem list: Medical At risk for CAD d/t DM, statin therapy on board / SNOMED CT 0559472472 / Confirmed Vaginal atrophy / SNOMED CT 677349517 / Confirmed Cholelithiases / SNOMED CT 835507770 / Confirmed Essential hypertension / SNOMED CT 19236979 / Confirmed S/P appendectomy / SNOMED CT 2073797365 / Confirmed History of colonoscopy with polypectomy 2020 (adenoma), next 4-5 year / SNOMED CT 5726874275 / Confirmed S/P total hysterectomy and bilateral salpingo-oophorectomy / SNOMED CT 7493427705 / Confirmed Hyponatremia, 128-129 not uncommon. Neph on board / SNOMED CT 158668376 / Confirmed Cystocele, midline / SNOMED CT 2215422874 / Confirmed Nausea in adult / SNOMED CT 4649873181 / Confirmed Osteoporosis screening, dexa norm 05/2024 / SNOMED CT 043754373 / Confirmed Postmenopausal state / SNOMED CT 969584401 / Confirmed Proteinuria / SNOMED CT 82824346 / Confirmed Hyperlipidemia / SNOMED CT 032620681 / Confirmed Right lower quadrant abdominal pain / SNOMED CT 755798858 / Confirmed Type 2 diabetes mellitus without complication / SNOMED CT 686889003 / Confirmed, Active Problems (17) At risk for CAD d/t DM, statin therapy on board Cholelithiases Cystocele, midline Essential hypertension History of colonoscopy with polypectomy 2020 (adenoma), next 4-5 year Hyperlipidemia Hyponatremia, 128-129 not uncommon. Neph on board Nausea in adult Osteoarthritis Osteoporosis screening, dexa norm 05/2024 Postmenopausal state Proteinuria Right lower quadrant abdominal pain S/P appendectomy S/P total hysterectomy and bilateral salpingo-oophorectomy Type 2 diabetes mellitus without complication Vaginal atrophy Histories Past Medical History: Resolved Actinic keratosis (2146167538): Resolved. Cough (80107222): Resolved. Chronic kidney disease, stage 3 (7974395408): Resolved. Diarrhea (020480826): Resolved. Family History: Hypertension Sister Diabetes mellitus type 2 Father Lymphoma (clinical) Mother Malignant tumor of colon Sister Stroke Sister Hyperlipidemia Sister CAD - Coronary artery disease Sister CHF (congestive heart failure) Father Alzheimer disease Sister Procedure history: Colonoscopy ([id number]) on 12/17/2020 at 75 Years. Comments: 12/17/2020 11:28 Larissa Zhu RN POLYPECTOMY Colonoscopy ([id number]) on 03/23/2010 at 65 Years. Comments: 04/29/2019 10:36 Elisa Hood LPN 04/04/2010-normal Hysterectomy and bilateral salpingo-oophorectomy sample ([id number]). Comments: 04/29/2019 10:34 Elisa Hood LPN 2004 Hemorrhoidectomy ([id number]). Comments: 04/29/2019 10:35 Elisa Hood LPN 1994 Appendectomy (150462217). Anterior repair of vagina (94249244). Social History: Social & Psychosocial Habits Alcohol 01/22/2025 Use: Current Type: Wine Frequency: Daily Employment/School 01/06/2025 Status: Retired Substance Abuse 01/22/2025 Use: Never Tobacco 01/22/2025 Tobacco Use: Never (less than 100 in l Exercise 01/06/2025 Exercise type: Aerobics, Walking Times per week: 1-2 times/week Home/Environment 01/22/2025 Domestic Concerns None Living situation: Home/Independent Lives In [facility] Nutrition/Health 01/22/2025 Type of diet: Regular Appetite Good Eating Difficulties None Caffeine intake amount: half caf coffee Physical Examination Vital Signs 01/22/2025 10:59 EDT Temperature Temporal Artery 36.3 DegC Peripheral Pulse Rate 66 bpm Respiratory Rate 14 br/min Systolic Blood Pressure Non-Invasive 146 mmHg HI Diastolic Blood Pressure Non-Invasive 79 mmHg Vital Signs (last 24 hrs) Last Charted Temp Utrqgfis57.3 DegC (JAN 22 10:59) SBPH 146 mmHg (JAN 22 10:59) DBP79 mmHg (JAN 22 10:59) Measurements from flowsheet : Measurements 01/22/2025 10:59 EDT Height 131 cm Admission Weight 58.7 kg [place] Body Weight 26.12 kg Pain assessment: Pain Assessment 01/22/2025 10:59 EDT Primary Pain Location Vagina Primary Pain Intensity 0 Pain Scale Type 0-10 Pain scale . General: Alert and oriented. Airway: Normal temporomandibular joint mobility. Mallampati classification: II (soft palate, fauces, uvula visible). Dentition Evaluation: Denies loose/chipped teeth. Respiratory: Lungs are clear to auscultation, Respirations are non-labored. Cardiovascular: Normal rate, Regular rhythm. Neurologic: Alert, Oriented. Review / Management Results review: Labs (Last four charted values) Na 138(JAN 22) K 4.1(JAN 22) CO2 29(JAN 22) Cl 101(JAN 22) Cr 0.87(JAN 22) BUN 16(JAN 22) Glucose 91(JAN 22) Ca 8.6(JAN 22) , Lab results 01/22/2025 11:22 EDT Glucose Level 91 mg/dL Sodium Level 138 mmol/L Potassium Level 4.1 mmol/L Chloride 101 mmol/L CO2 29 mmol/L Electrolyte Balance 8.0 mEq/L BUN 16 mg/dL Creatinine Lvl (s) 0.87 mg/dL Estimated Glomerular Filtration Rate 68 ml/min/1.73sqm NA BUN/Creatinine Ratio 18 ratio Calcium Lvl 8.6 mg/dL Creatinine Clearance Calc 21.62 mL/min 01/22/2025 11:19 EDT Continuous IV Infusions lr Forearm Left 01/22/2025 20 gauge Peripheral IV Activity: Insert new site Peripheral IV Dressing Condition: Clean, Dry, Intact Peripheral IV Dressing Activity: Applied, Transparent dressing Peripheral IV Line Status/Patency: Flushes easily Peripheral IV Line Care: Secured with tape Peripheral IV Site Condition: No complications Peripheral IV Equipment: Extension set Peripheral IV Number of Attempts: 1 01/22/2025 10:59 EDT Height 131 cm Admission Weight 58.7 kg [place] Body Weight 26.12 kg Temperature Temporal Artery 36.3 DegC Peripheral Pulse Rate 66 bpm Respiratory Rate 14 br/min Systolic Blood Pressure Non-Invasive 146 mmHg HI Diastolic Blood Pressure Non-Invasive 79 mmHg Primary Pain Location Vagina Primary Pain Intensity 0 Pain Scale Type 0-10 Pain scale Heart Rhythm Regular Oxygen Therapy Room air Oxygen Saturation 98 % Urinary Elimination Voiding, no difficulties Skin Integrity Intact Level of Consciousness Alert Strength All Extremities Moderate Affect/Behavior Appropriate Orientation Oriented x 4 Allergies Yes Consent Form Signed Yes History & Physical Update On Chart Yes History & Physical On Chart Yes Obstructive Sleep Apnea Assess Completed Yes Belongings At Bedside Cosmetic bag, Pants, Shirt, Shoes, Socks, Undergarments Positioning Repositions self Activity Status ADL Awake, Up ad aftab Sequential Compression Device bilateral knee high applied/on NPO Status Maintained, More than 8 hours Standard Safety ID band on, Allergy Band on, Call device within reach, Bed in low position, Wheels locked, Upper/Half-Length side-rails up, Visitor at bedside, Safety level maintained Allergy Band on and Verified Yes Patient ID Band on and Verified Yes Implants Verified No Site Verified by Patient/Family Yes Anesthesia Consent Signed Yes Blood Consent Signed Yes Last Fluid Intake 01/21/2025 22:00 Last Food Intake 01/21/2025 20:00 Last Void 01/22/2025 11:01 01/22/2025 10:51 EDT Designated Person #1 We May Share VIVEK CASTILLO [phone]-home text messageonly [phone] Designated Person #1 Relationship Spouse Privacy Restrictions Requested None Status N/A Sensory Deficits None Sleep Apnea Snore No Sleep Apnea Tired No Sleep Apnea Obstruction No Sleep Apnea Pressure Yes Sleep Apnea BMI No Sleep Apnea Age Yes Sleep Apnea Neck No Sleep Apnea Gender No Sleep Apnea Score 2 Diagnosed With Sleep Apnea No Advanced Directives Yes Advance Directive Type [place] Declaration (Living Will) Advance Directive Location Copy placed on paper chart Infectious Disease Symptoms Patient states no symptoms Infectious Disease Recent Exposure No Alcohol and Drug Use No Employee of Institutional Living No Health Care Employee No History of Exposure to TB No History of Positive Chest X-Ray for TB No History of Positive TB Skin Test No Homeless No Known Immunosuppression No Recent Immigrant No Resident of Institutional Living No Bloody Sputum No Fatigue No Fever No Loss of Appetite No Night Sweats No Persistent Cough > 3 Weeks No Weight Loss No Patient Aware Date/Time Of Surgery Yes Pre-Op Patient Education NPO after midnight, No makeup, No jewelry, Responsible [employer] Party, Aware of surgery location, Pre-op education done, Instructed to take ordered medications, SSI prevention handoutgiven SN - Preprocedure Comments Spoke with patient, Verbalizes/Nonverbally indicates understanding, Other: losartan Barriers to Learning None evident Teaching Method Explanation Preferred Spoken Language Chinese Preferred Written Language Chinese Teaching Evaluation No further teaching needed Safety Brochure Information Reviewed Yes Zhang Rileyedita Video Viewed No Patient's Current Physicians Patient's Current Physicians History of Malignant Hyperthermia No Discharge To, Anticipated Home independently Prev Test Positive/Diagnosis w/COVID-19 No Current Quarantine/Isolated any Illness No Any Contact with Sick Animals/Birds No Traveled Anywhere in Last 30 Days No Lost Weight Unintentionally Recently No Eat Poorly Due to Decreased Appetite No Total MST Score 0 N/A Personal Devices, Patient Valuables Glasses Anesthesia/Transfusions Prior anesthesia Admission Note-Nursing Same Day Patient History 01/21/2025 11:47 EDT Chyna LANDEROS . Assessment and Plan [place] Society of Anesthesiologists (ASA) physical status classification: Class II. Anesthetic Preoperative Plan Anesthetic technique: General. Maintenance airway: Laryngeal mask airway. Postoperative pain management: Per surgeon. Risks discussed: nausea, vomiting, sore throat, dental injury, hypotension, allergic reaction, serious complications. Informed consent: signed by patient. Digitally Signed by MEAGHAN ZEE on 01/22/2025 11:59 AM [facility]04-01-2025 Evaluation + Plan note Future Scheduled Tests Laboratory* Lipid Profile 10/21/24 * Albumin/Creatinine Ratio, Random Urine 10/21/24 * Complete Metabolic Panel 10/21/24 Radiology* BD Bone Density DEXA Axial Skeleton Adult (21 yrs or older) 04/22/24 [facility] 12-10-2024 Evaluation note* Diagnosis Onset Date Resolution Status Admit Date Decreased hearing of left ear acute July 01, 2024 9:55am Neuropathy acute July 01, 2024 9:55am Spondylolisthesis of lumbar region chronic July 01 9:55am Tremor chronic July 01, 2024 9:55am Essential hypertension [facility] 2024 10:15am Hyperlipidemia chronic August 122024 10:15am Decreased hearing of left ear acute October 13, 2024 9:29am Neuropathy acute October 13 9:29am Spondylolisthesis of lumbar region chronic October 13, 2024 9:29am Tremor chronic October 13 9:29am [facility] Work Phone: Evaluation + Plan note Future Appointments Appointment Date:05/06/2021 10:30:00 AM Scheduled Provider:CARIDAD CARRERA DO Location:[facility] Appointment Type:PC OV [facility] evaluation + Plan note Future Appointments Appointment Date:05/08/2023 09:30:00 AM Scheduled Provider:CARIDAD CARRERA DO Location:[facility] Appointment Type:PC OV Future Scheduled Tests Laboratory* Albumin/Creatinine Ratio, Random Urine 11/06/22 Radiology* MA Mammo Screening Bilateral w/ Wong 11/06/22 [facility] Evaluation + Plan note Future Appointments Appointment Date:04/22/2024 09:30:00 AM Scheduled Provider:CARIDAD CARRERA DO Location:[facility] Appointment Type:PC OV Follow Up Future Scheduled Tests Radiology* MA Mammo Screening Bilateral w/ Wong 10/23/23 [facility] Trusteeraluation + Plan note Future Appointments Appointment Date:05/12/2025 09:30:00 AM Scheduled Provider: Location:[facility] Appointment Type:PC Nurse Lab Appointment Date:05/19/2025 09:30:00 AM Scheduled Provider:DEREK GUERRIER DO Location:[facility] Appointment Type:PC Wellness Medicare Future Scheduled Tests Laboratory* TSH with Reflex to FT4 01/06/25 * A1C Hemoglobin 01/06/25 * Complete Blood Count 01/06/25 * Vitamin D Level 01/06/25 * Complete Metabolic Panel 01/06/25 Radiology* MA Mammo Screening Bilateral w/ Wong 01/07/25 * BD Bone Density DEXA Axial Skeleton Adult (21 yrs or older) 04/22/24 [facility] evaluation + Plan note Future Appointments Appointment Date:03/02/2025 09:30:00 AM Scheduled Provider:DELMER BANKS MD Location: [facility]ST Appointment Type:WH OV Appointment Date:05/12/2025 09:30:00 AM Scheduled Provider: Location:[facility] Appointment Type:PC Nurse Lab Appointment Date:05/19/2025 09:30:00 AM Scheduled Provider:DEREK GUERRIER DO Location:[facility] Appointment Type:PC Wellness Medicare Future Scheduled Tests Laboratory* TSH with Reflex to FT4 01/06/25 * Urinalysis w/ C&S if Indicated 01/30/25 * A1C Hemoglobin 01/06/25 * Complete Blood Count 01/06/25 * Vitamin D Level 01/06/25 * Complete Metabolic Panel 01/06/25 Radiology* BD Bone Density DEXA Axial Skeleton Adult (21 yrs or older) 04/22/24 [facility] EvNuoDBation + Plan note Future Appointments Appointment Date:04/27/2025 09:15:00 AM Scheduled Provider:DELMER BANKS MD Location:[facility] Appointment Type: OV Appointment Date:05/12/2025 09:30:00 AM Scheduled Provider: Location:[facility] Appointment Type:PC Nurse Lab Appointment Date:05/19/2025 09:30:00 AM Scheduled Provider:DEREK GUERRIER DO Location:[facility] Appointment Type:PC Wellness Medicare Future Scheduled Tests Laboratory* Urinalysis w/ C&S if Indicated 01/30/25 Radiology* BD Bone Density DEXA Axial Skeleton Adult (21 yrs or older) 04/22/24 * US Abdomen Complete 03/18/25 [facility] Evaluation + Plan note Future Appointments Appointment Date:04/27/2025 09:15:00 AM Scheduled Provider:DELMER BANKS MD Location: [facility]ST Appointment Type: OV Appointment Date:05/12/2025 09:30:00 AM Scheduled Provider: Location:[facility] Appointment Type:PC Nurse Lab Appointment Date:05/19/2025 09:30:00 AM Scheduled Provider:DEREK GUERRIER DO Location:[facility] Appointment Type:PC Wellness Medicare Future Scheduled Tests Laboratory* Urinalysis w/ C&S if Indicated 01/30/25 Radiology* BD Bone Density DEXA Axial Skeleton Adult (21 yrs or older) 04/22/24 [facility] Evaluation + Plan note Future Appointments Appointment Date:04/21/2025 11:15:00 AM Scheduled Provider:DEREK GUERRIER DO Location:[facility] Appointment Type:PC OV Appointment Date:04/27/2025 09:15:00 AM Scheduled Provider:DELMER BANKS MD Location: [facility]ST Appointment Type:WH OV Appointment Date:05/12/2025 09:30:00 AM Scheduled Provider: Location:[facility] Appointment Type:PC Nurse Lab Appointment Date:05/19/2025 09:30:00 AM Scheduled Provider:DEREK GUERRIER DO Location:[facility] Appointment Type:PC Wellness Medicare Future Scheduled Tests Laboratory* Urinalysis w/ C&S if Indicated 01/30/25 Radiology* BD Bone Density DEXA Axial Skeleton Adult (21 yrs or older) 04/22/24 [facility] Evaluation + Plan note Future Appointments Appointment Date:05/19/2025 09:30:00 AM Scheduled Provider:DEREK GUERRIER DO Location:[facility] Appointment Type:PC Wellness Medicare Future Scheduled Tests Laboratory* Urinalysis w/ C&S if Indicated 01/30/25 [facility] Evaluation noteNo assessment information available [facility] Work Phone: Evaluldakn note* Diagnosis Onset Date Resolution Status Sensation of cold in lower extremity acute Essential hypertension chron ic Hyperlipidemia chronic [facility] Work Phone: Evaluation note* Diagnosis Onset Date Resolution Status Admit Date Neuropathy acute March 10:58am Spondylolisthesis of lumbar region chronic April 13, 2025 10:58am Tremor chronic March 10:58am [facility] Work Phone: Hospital course Narrative No data available for this section [facility] Hospital Discharge instructions No data available for this section [facility] Progress note No data available for this section [facility] Progress note Author Tara Barneslexana [facility] Note Date/Time April 13, 2025 11:37am [facility] [address] [place] [address], [address] [place] [address] OFFICE VISIT Date of Service: 04/13/25 MR#: [id number] Acct: [id number] Name: MATT CASTILLO Rep #: [id number] : 1945 Provider: ILIA Whiteside Age/Sex: 80/F Location: [facility] Status: Signed HPI HPI Chief Complaint: 6-month follow-up Details: History of present illness: Mrs. Castillo is a 79-year-old right handed female established care with neurologist Dr. Jones on 07/01/2024 for peripheral neuropathy of lower extremities. Pertinent past medical history includes diabetes mellitus type 2 (well- controlled, on metformin), hyperlipidemia, essential hypertension (controlled onmedication), mitral valve prolapse, bilateral hammertoes, spondylolisthesis of lumbar region, tremor, hyponatremia, and mild hearing impairment of the left ear. She is not a smoker. The patient's family history is negative for neuropathies. The patient stated that an older sister did have a tremor. The patient endorses paresthesias that are present in both feet; the quality is described as burning and tingling with intermittent intensities. Some days it is relatively mild and other days it is much more intense. This problem is usually noted at night when she is attempting to sleep. The patient's diagnosis of lumbar spondylolisthesis (level not known by the patient) causes intermittent pain on the right side at about L5-S1, which may radiate towards the right hip. The patient has been seen by podiatry. Evaluation included EMG and nerve conduction studies, which were read as normal. Additionally, she had a skin biopsy performed in April 2024. Pathology report was reviewed by Dr. Jones at her initial visit. Nerve fiber number appeared normal; however, there appeared to be degenerative changes within the epidermal nerves. The report goes on to say that this is not necessarily indicative of small fiber neuropathyspecifically, but a significant number of patients may go on to develop small fiber neuropathy if they do not already have that. 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 The patient is noted to have flat feet and bilateral hammertoes. Tarsal tunnel syndrome is of consideration as her foot anatomy can put additional strain on her tibial nerve. The paresthesias are only felt below the ankle. There is no presence of sensory abnormalities in the upper extremities. Several labs were ordered and evaluated to assess for underlying etiologies. She has chronic hyponatremia with a sodium of 128 mmol/L, which appears to be her baseline. The patient states that this is being monitored and managed by her primary care. Vitamins B1, B6, B12, and folate were within normal range. Her ESR and sed rate were within normal range. Her magnesium was 2.3. Her SARAVANAN w/ reflex and NEVIN + protein electrophoresis were unremarkable. 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 Treatment recommendations included magnesium oxide 400 mg nightly and Aspercremeas needed for pain on the bilateral feet. The patient states that this combination has been beneficial, overall reducing her pain. A trial of gabapentin at night was discussed; however, it was opted to defer this treatmentfor the time being. This could be considered in the future if the peripheral neuropathy were to progress. Interim History: Mrs. Castillo presents unaccompanied to neurology today 04/13/2025 for a 6-month follow-up visit. Routine labs were drawn by her primary care physician and were reviewed today. Her sodium level was 131, she has chronic hyponatremia. Her TSH was slightly elevated at 3.90 with a normal free T4. Vitamin D level was sufficient. Her hemoglobin A1c was normal at 5.6%. Her symptoms related to her idiopathic small fiber neuropathy are essentially unchanged since her previous visit. However the burning sensation is reported to be quite bothersome, especially in the evenings. She would like to pursue further pharmacological treatment. ROS: General: No fatigue. No recent weight loss/gain. No recent illness. No fevers. No recent falls. Neuro: No headaches. No dizziness. Positive for bilateral hand tremors. Positive for lower extremity neuropathy. Cardio: No palpitations. No chest pain or discomfort. No edema. Respiratory: Nonsmoker. No cough. No shortness of breath. No wheezing. Musculoskeletal: No use of assistive devices. No neck pain. Chronic back and right hip pain. PHYSICAL EXAM: Constitutional: Well-developed, well-nourished right-handed female in no acute distress. Respiratory: Normal effort. Symmetric chest movement. Clear to auscultation bilaterally. Cardio: Regular rate and rhythm. Musculoskeletal: No muscle weakness. No difficulties with ROM. Extremities: Absence of edema. No peripheral cyanosis. Fallen arches in feet. Bilateral hammertoes. Bunion on left first toe. Neurological exam: Mental status: Alert and awake. Speech is fluent with good comprehension. Reflexes: Babinski negative. Patellar deep reflexes are 1+ and symmetric bilaterally. Achilles deep tendon reflexes are absent bilaterally. Sensory: Romberg test negative. Sensation is grossly intact to light touch, pinprick, and vibration in fingers and toes. There may be a slight sensory lossto vibration via tuning fork in both feet. Episodes of burning/tingling are reported to occur daily with intermittent intensities. The symptoms are usuallyworse in the evenings. She denies neuropathy in her hands. Gait/Stance: Posture is normal. Gait is normal. Assessment and Plan Assessment and Plan (1) Neuropathy: Status: Acute Comment: Findings clinically consistent with idiopathic small fiber neuropathy. (2) Tremor: Status: Chronic Comment: Likely an essential tremor; there is a familial component. (3) Spondylolisthesis of lumbar region: Status: Chronic Medications: New gabapentin 100 mg PO QHS 30 caps 1RF Plan ASSESSMENT: Patient history and exam findings are clinically consistent with idiopathic small fiber neuropathy. Symptoms of tingling/burning are present in her bilateral lower extremities, primarily affecting her toes and tops of her feet. Symptoms are reported to be most bothersome in the evenings. Magnesium oxide 400 mg daily and Aspercreme with lidocaine as needed for pain has been modestly beneficial for symptom management. Patient wishes to pursue further pharmacological treatment and will be initiated on gabapentin. Additionally, patient was found to have an essential tremor present in her bilateral hands. There appears to be a familial component. Tremor is not currently impacting patient's day-to-day functioning and pharmacological treatment for this condition is not warranted at this time. PLAN: ? Initiate gabapentin 100 mg nightly ? Continue magnesium oxide 400 mg daily ? Continue Aspercreme with lidocaine as needed for pain Patient to follow-up with neurology in 1 month. Intake Vital Signs 10/13/24 09:31 04/13/25 11:00 Height 1.57 m 1.57 m Weight: 59.421 kg 59.874 kg BMI 23.9 24.1 BP 138/74 H 135/79 H Blood Pressure Location Lt brachial Lt brachial Position Sitting Sitting Respiration 17 16 Pulse 83 72 Pulse Source Monitor Monitor Temp 98.2 F 97.8 F Temp Source Temporal Temporal Pulse Oximetry (%) 97 98 Oxygen Delivery Method room air room air Intake Visit Reasons: 6 M FU Chief Complaint: 6-month follow-up Slubber Hand Required: No Accompanied by: Self Allergies codeine Adverse Reaction (Verified 04/13/25 11:04) Nausea hydrocodone (From Vicodin) Adverse Reaction (Verified 04/13/25 11:04) Nausea irbesartan (From Avapro) Adverse Reaction (Verified 04/13/25 11:04) Nausea lisinopril Adverse Reaction (Verified 04/13/25 11:04) cough NSAIDS (Non-Steroidal Anti-Inflamma Adverse Reaction (Verified 04/13/25 11:04) Nausea oxycodone (From Percocet) Adverse Reaction (Verified 04/13/25 11:04) NAUSEA Medications ?Medication ?Instructions ?Recorded ?Confirmed ?Type metformin 500 mg tablet 500 mg PO QDAY 07/02/1703/24 History simvastatin 20 mg tablet 20 mg PO QPM 07/02/17 History magnesium oxide 400 mg PO QDAY 10/13/2403/24 History diltiazem HCl 180 mg 180 mg PO QDAY #90 caps 09/2104/13/25 Rx capsule,extended release 24 hr (Cartia XT) docusate sodium 100 mg capsule 100 mg PO BID 04/13/25 04/13/25 History (Colace) estradiol 0.01% (0.1 mg/gram) vaginal 2XW 04/13/25 History vaginal cream gabapentin 100 mg capsule 100 mg PO QHS #30 caps 04/1304/13/25 Rx losartan 25 mg tablet 25 mg PO QAM 04/13/25 History multivitamin (Multiple Vitamins 1 tab PO QDAY 04/13/25 04/13/25 History tablet) Have you fallen in the past year?: No PFSH Medical History Bladder prolapse Nonrheumatic mitral (valve) insufficiency Essential hypertension Recurrent UTI Vision problems Chronic bronchitis Arthritis Hyperlipidemia Type 2 diabetes mellitus without complications Surgical History History of tonsillectomy H/O total hysterectomy History of appendectomy H/O hemorrhoidectomy Family History Father Heart disease Diabetes Sister Heart disease CVA (cerebral vascular accident) CAD (coronary artery disease) CABG and Valve surgery Cancer Mother Cancer Social History household members: spouse current occupational status: retired pets and animals: No Smoking Status: Never smoker alcohol intake: current alcohol intake frequency: holidays/special occasions only details: 1 glass of wine every evening substance use type: does not use caffeine: Yes (On avg 3 cups daily of half and half) Type: coffee do you feel safe at home: Yes Clinical Quality Measures Falls Risk Screening/Assistive Devices Have you fallen in the past year?: No Coding Level of Care Code Off vis,est,level 3 Diagnoses Neuropathy G62.9 Tremor R25.1 Spondylolisthesis of lumbar region M43.16 04/13/25 1554 <Electronically signed by Tara MORILLO> Date _ Tara MORILLO Cosigner Signature: Date (if applicable) CC: ~ [facility] Work Phone: Reason for referral (narrative)No reason for referral information availableW[facility] Work Phone: Chief Complaint and Reason for Visit Chief Complaint SCREENING Chief Complaint 1 Y FU E-ORDER Reason for Visit Sensation of cold in lower extremity Essential hypertension Hyperlipidemia Chief Complaint [address]'S /E-O RDER & PAPER Chief Complaint 1 Y FU E-ORDER PERIPHERAL VASCULAR DISEASE Amb Documentation Amb Documentation Reason for Visit Sensation of cold in lower extremity Essential hypertension Hyperlipidemia Chief Complaint Admit Date PERIPHERAL NEUROPATHY LOWER EXTREMITY De [id number] 9:55am EORDER July 01, 2024 11:05am 1 y fu August 12, 2024 1 0:15am 3 M FU October 13, 2024 9:2 9am FASTING October 22, 2024 8:56 am Reason for Visit Admit Date Decreased hearing of left ear June [id number] 9:55am Neuropathy July 01, 2024 9:55am Spondylolisthesis of lumbar region Decem fredis 2023 9:55am Tremor July 01, 2024 9:55am Essential hypertension August 12 10:15am Hyperlipidemia August 12, 2024 1 0:15am Decreased hearing of left ear September 9:29am Neuropathy October 13, 2024 9:2 9am Spondylolisthesis of lumbar region October 13, 2024 9:29am Tremor October 13, 2024 9:2 9am Chief Complaint Admit Date 6 M FU April 13, 2025 10:58am Reason for Visit Admit Date Neuropathy April 13, 2025 10:58am Spondylolisthesis of lumbar region Septe mber 2024 10:58am Tremor April 13, 2025 10:58am Family History No Family History Records Found Relationship Condition Age at Onset Recorded Date/T kavon father Cardiac disease Unknown Diabetes mellitus Unknown sister Cardiac disease Unknown Cerebrovascular accident (CVA) Unknown Coronary artery disease Unknown Malignant neoplasm Unknown mother Malignant neoplasm Unknown Summary Purpose Advance Directives No Advanced Directives Records FoundNo Advanced Directives Records FoundNo Advanced Directives Records Found Additional Source Comments Goals (unrecognized section and content) Goals may be documented in a n alternate section No data available for this section No data available for this sectionGoals may be documented in an alternate sectionGoals may be documented in an alternate section No data available for this sectionGoals may be documented in an alternate sectionGoals may be documented in an alternate section No data available for this section No data available for this section No data available for this section No data available for this section No data available for this section No data available for this section No data available for this sectionGoals may be documented in an alternate section No data available for this section Patient Care team informatio n (unrecognized section and content) Team Status: Active Member Role Status Dates Dr. Caridad Carrera DO Family Provider Active Dr. Caridad Carrera DO Primary Care Provider Active Team Status: Inactive Member Role Status Dates Dr. Caridad Carrera DO Primary Care Provider, Referri ng Provider Active Mari Robert CREDIT COLLECTIONS REP, CREDIT COLLECTIONS REP-C Attending Provider Active Team Status: Inactive Member Role Status Dates Dr. Caridad Carrera DO Primary Care Provider Active Mari Robert CREDIT COLLECTIONS REP, CREDIT COLLECTIONS REP-C Attending Provider, Referring Lisa england Active Team Status: Inactive Member Role Status Dates Dr. Caridad Carrera DO Primary Care Pro vider, Attending Provider, Referring Provider Active Mari Robert CREDIT COLLECTIONS REP, CREDIT COLLECTIONS REP-C Other Provider Active Team Status: Active Member Role Status Dates Dr. Caridad Carrera DO Primary Care Provider Active Dr. Emeka Nichols MD Attending Provider Active Team Status: Active Member Role Status Dates Dr. Caridad Carrera DO Primary Care Provider Active Mari Robert NP, CREDIT COLLECTIONS REP-C Attending Provider Active Team Status: Active Member Role Status Dates Dr. Caridad Carrera DO Primary Care Provider Active Dr. Ozzie Malave MD Attending Provider Active Team Status: Active Member Role Status Dates Dr. Caridad Carrera DO Primary Care Provider Active Team Status: Inactive Member Role Status Dates Dr. Caridad Carrera DO Primary Care Provider Active Start: July 01, 2024 End: July 01, 2024 Dr. Maikol Jones MD Attending Provider Active Start: July 01, 2024 End: July 01, 2024 Dr. Chung Oliva DPM Referring Provider Active Start: July 01, 2024 End: July 01, 2024 Team Status: Inactive Member Role Status Dates Dr. Caridad Carrera DO Primary Care Provider Active Start: July 01, 2024 End: July 01, 2024 Tara Whiteside NP-C Attending Provider Active S tart: July 01, 2024 End: July 01, 2024 JOAQUIM CurryC Referring Provider Active S tart: July 01, 2024 End: July 01, 2024 Team Status: Inactive Member Role Status Dates Dr. Caridad Carrera DO Primary Care Provider Active Start: August 12, 2024 End: August 12, 2024 Dr. Caridad Carrera DO Referring Provider Active Start: August 12, 2024 End: August 12, 2024 Dr. Ozzie Malave MD Attending Provider Active S tart: August 12, 2024 End: August 12, 2024 Team Status: Inactive Member Role Status Dates Dr. Caridad Carrera DO Primary Care Provider Active Start: October 13, 2024 End: October 13, 2024 Dr. Caridad Carrera DO Referring Provider Active Start: October 13, 2024 End: October 13, 2024 JOAQUIM CurryC Attending Provider Active S tart: October 13, 2024 End: October 13, 2024 Team Status: Inactive Member Role Status Dates Dr. Caridad Carrera DO Primary Care Provider Active Start: October 22, 2024 End: October 22, 2024 Dr. Caridad Carrera DO Attending Provider Active Start: October 22, 2024 End: October 22, 2024 Dr. Caridad Carrera DO Referring Provider Active Start: October 22, 2024 End: October 22, 2024 Team Status: Active Member Role/Relationship Status Dates Dr. Caridad Carrera DO Primary care physician Active Team Status: Inactive Member Role/Relationship Status Dates Dr. Caridad Carrera DO Primary care physician Active Start: April 13, 2025 End: April 13, 2025 Dr. Caridad Carrera DO Referring Provider Active Start: April 13, 2025 End: April 13, 2025 ILIA Curry Attending physician Active Start: April 13, 2025 End: April 13, 2025 INFORMATION SOURCE (unrecogn ized section and content) DATE CREATED AUTHOR 12/22/2023 [facility] ([place]) DATE CREATED AUTHOR AUTHOR'S ORGANIZ ATION 05/18/2025 [facility] DATE CREATED AUTHOR AUTHOR'S ORGANIZ ATION 05/19/2025 [facility] FOR RECORDS PERTAINING TO PATIENTS WHO ARE OR HAVE BEEN ENROLLED IN A CHEMICAL DEPENDENCY/SUBSTANCEABUSE PROGRAM, SOME INFORMATION MAY BE OMITTED. This clinical summary was aggregated from multiple sources. Caution should be exercised in using it in the provision of clinical care. This summary normalizes information from multiple sources, and as a consequence, information in this document may materially change the coding, format and clinical context of patient data. In addition, data may be omitted in some cases. CLINICAL DECISIONS SHOULD BE BASED ON THE PRIMARY CLINICAL RECORDS. [facility] [employer] [facility]. provides no warranty or guarantee of the accuracy or completeness of information in this document.
[2025-06-16 10:26] LABS: AST(SGOT) 34 U/L (<=31); Alanine Aminotransfer ALT/SGPT 35 U/L (<=34); Albumin, Serum 4.6 g/dL (3.4-4.8); Alkaline Phosphatase 57 U/L (35-104); Bilirubin, Direct 0.21 mg/dL (0.00-0.30); Cholesterol 144 mg/dL (<=200); Globulin 2.6 g/dL (2.2-4.2); Low Density Lipoprotein Calc. 71 mg/dL; Triglycerides 55 mg/dL; Very Low Density Lipoprotein 11 mg/dL (5-40); cholesterol:hdl ratio screen 2.33
[2025-06-16 13:26] LABS: Anion Gap 13 (5-15); BUN 11 mg/dL (4-19); BUN/Creat Ratio 11.3 RATIO (10-20); Calcium,Total 9.4 mg/dL (7.6-11.0); Carbon Dioxide 25.8 mmol/L (21.0-32.0); Chloride 94 mmol/L (98-108); Glucose 86 mg/dL (70-99); Potassium 4.7 mmol/L (3.3-5.1)
== END | disposition home or self-care (01) ==
LOC: LAB 09:13
PROVIDERS: Nurse Practitioner Gerontology; Referring Provider Student in an Organized Health Care Education/Training Program; Visit Provider Student in an Organized Health Care Education/Training Program
DX: E11.9 Type 2 diabetes mellitus without complications (principal); R94.4 Abnormal results of kidney function studies; E78.00 Pure hypercholesterolemia, unspecified
CPT/HCPCS: 36415; 80048; 80061; 80076; 84100